=== PATIENT | female | born 1940 | race Caucasian/White ===

== ENCOUNTER 2019-04-12 20:08 | Inpatient (IN) | payer MEDICARE, BC ==
[~2019-04-12] VITALS: Ht 137.2 cm; Wt 38.1 kg
[2019-04-12] MEDS: ALBUTEROL FS 2.5 MG/3 ML VIAL.NEB NEB SCH (19:30)
[2019-04-12] MEDS: IPRATROPIUM NEB FS 0.5 MG/2.5 ML AMPUL.NEB NEB SCH (19:30)
[~2019-04-12 20:08] MED LIST: ASCO500T87 PO; ASPI-992 PO; ATOR20TA PO; BENA5TAB5 PO; BISACODYL SUPP (10 MG) 10 MG/SUPP.RECT SUPP.RECT RC PRN; CARB1TAB12 GT; CLOP75TA15 PO; ERGO400C PO; ISRA2.5C PO; LACTULOSE 10 G/15 ML UDC (PYXIS) GT PRN; MAG HYDROX/AL HYDROX/SIMETH 30 ML UDC GT PRN; MAGNESIUM HYDROXIDE 30 ML UDC GT PRN; METO50TA7 PO; MIDODRINE HCL (5MG) 5 MG TABLET GT PRN; MULT1CAP34 PO; OMEP-293 PO; POLYVINYL ALCOHOL 15 ML BOTTLE EACHEYE PRN; PRAM1.5T3 PO; RASA1TAB PO; VITA600C3 PO
--- NOTE | 2019-04-12 20:12 | NUR ---
TRACH PT WAS BROUGHT INTO SUBACUTE AT THIS TIME. PLACED PATIENT ON COOL AEROSOL 5L AT 28%. PT IS NONVERBAL. TRACH CARE DONE AT THIS TIME. SX SMALL AMOUNT OF WHITE YELLOW THICK SECRETIONS. BILATERAL RHONCHI BREATH SOUNDS HEARD. PT HAS AN UNCUFFED PORTEX 7. AMBU BAG AND SPARE TRACH AT BEDSIDE. WILL CONT TO MONITOR PT. Addendum: 04/13/19 at 0220 by PARI PANDEY RT Amended: Links added.
[2019-04-12] MEDS ORDERED: HYDROGEN PEROXIDE 480 ML BOTTLE TP PRN (20:30)
[2019-04-12] MEDS: VITAL AF 1.2 1,000 ML BOTTLE GT PRN (20:30)
[2019-04-12 21:00] VITALS: BP 106/61
[2019-04-12] MEDS: HYDROGEN PEROXIDE 480 ML BOTTLE TP SCH (21:00)
--- NOTE | 2019-04-12 21:00 | NUR ---
2000- patient 78 years old female admitted from [facility] under the care of Dr. Huang Ramey.Pt awake,open eyes,no acute distress.Tracheostomy located in the midline on cool aerosol 28% Fio2.BP 110/66 HR 62,O@ sats 97%,temp 97.9.GT patent and intact. Dx Respiratory failure,pulmonary fibrosis, hypothyroidism,right middle cerebral stroke,hypertension,parkinson's disease,CAD,Anemia,osteoporosis,PUD.Notified Dr. Gay Deshpande investigations chief for Dr. Ramey to verify orders. at bedside ant oriented to the unit. PM care provided to pt and skin assessment done.HOB elevated.Kept clean and dry. Call light within reach at all times. Will continue to monitor.
[2019-04-12] MEDS: PRAMIPEXOLE DI-HCL 0.25 MG TABLET GT SCH (21:56)
[2019-04-12] MEDS: ENTACAPONE 200 MG TABLET GT SCH (22:26)
[2019-04-12] MEDS: CARBIDOPA/LEVODOPA 25/100 MG 1 UDTAB GT SCH (22:26)
[2019-04-13] VITALS: BP 136/59
[2019-04-13] MEDS: ALBUTEROL FS 2.5 MG/3 ML VIAL.NEB NEB SCH ×4 (01:55→19:30)
[2019-04-13] MEDS: IPRATROPIUM NEB FS 0.5 MG/2.5 ML AMPUL.NEB NEB SCH ×4 (01:55→19:30)
[2019-04-13] MEDS: CARBIDOPA/LEVODOPA 25/100 MG 1 UDTAB GT SCH ×8 (02:30→21:02)
[2019-04-13] MEDS: ENTACAPONE 200 MG TABLET GT SCH ×8 (02:30→21:02)
[2019-04-13 04:08] VITALS: BP 119/53
[2019-04-13] MEDS ORDERED: PANTOPRAZOLE 40 MG/PACK PACK GT SCH (06:00)
[2019-04-13] MEDS: LEVOTHYROXINE SODIUM 75 MCG TABLET GT SCH (06:07)
[2019-04-13 08:09] VITALS: BP 126/52
[2019-04-13] MEDS: CHLORHEXIDINE GLUCONATE 15 ML UDC MM SCH ×2 (09:00→17:00)
[2019-04-13] MEDS: AMANTADINE SUSP 50 MG/5 ML UDC GT SCH (09:00)
[2019-04-13] MEDS: MULTIVITAMINS,THERAGRAN 1 UDTAB TABLET GT SCH (09:00)
[2019-04-13] MEDS: PRAMIPEXOLE DI-HCL 0.25 MG TABLET GT SCH ×2 (09:00→17:00)
[2019-04-13] MEDS: BENZTROPINE MESYLATE (1 MG) 1 MG TABLET GT SCH (09:00)
[2019-04-13] MEDS: FUROSEMIDE 20 MG TABLET GT SCH (09:00)
[2019-04-13] MEDS: ACIDOPHILUS/BULGARICUS 1 EACH TAB.CHEW GT SCH ×2 (09:00→16:28)
[2019-04-13] MEDS: HYDROGEN PEROXIDE 480 ML BOTTLE TP SCH ×2 (09:00→20:31)
[2019-04-13] MEDS: CLOPIDOGREL BISULFATE 75 MG TABLET GT SCH (09:00)
[2019-04-13] MEDS ORDERED: TUBERCULIN,PURIF.PROT.DERIV. 5 TU/0.1 ML VIAL ID SCH (09:00)
[2019-04-13] MEDS: AMIODARONE HCL 200 MG TABLET GT SCH (09:00)
[2019-04-13] MEDS: VITAMINS A AND D 56.7 GM TUBE TP SCH ×3 (09:00→21:01)
[2019-04-13] MEDS: LACTULOSE 10 G/15 ML UDC (PYXIS) GT SCH (09:00)
[2019-04-13] MEDS: Z GUARD REMEDY 4 OZ OINT TP SCH ×3 (09:00→21:01)
[2019-04-13] MEDS: DOCUSATE SODIUM LIQ 100 MG/10 ML UDC GT SCH (09:00)
[2019-04-13] MEDS: ATORVASTATIN 40 MG TABLET GT SCH (09:00)
[2019-04-13] MEDS ORDERED: BISA10SU11 RC (09:45)
[2019-04-13] MEDS ORDERED: CARB-93 GT (09:45)
[2019-04-13] MEDS ORDERED: MIDO2.5T PO (09:45)
[2019-04-13] MEDS ORDERED: CARB-93 PO (09:45)
[2019-04-13] MEDS ORDERED: LACT10SO GT ×2 (09:45)
[2019-04-13] MEDS ORDERED: POLY50DR OP (09:45)
[2019-04-13] MEDS ORDERED: IPRA3AMP23 IH (09:45)
[2019-04-13] MEDS ORDERED: ENTA200T GT (09:45)
[2019-04-13] MEDS ORDERED: BENZ2AMP3 GT (09:45)
[2019-04-13] MEDS ORDERED: DOCU-141 GT (09:45)
[2019-04-13] MEDS ORDERED: AMIO200T4 GT (09:45)
[2019-04-13] MEDS ORDERED: SENN-168 PO (09:45)
[2019-04-13] MEDS ORDERED: LEVO25TA7 GT (09:45)
[2019-04-13] MEDS ORDERED: CHLO473M3 MM (09:45)
[2019-04-13] MEDS ORDERED: ENTA200T PO (09:45)
[2019-04-13] MEDS ORDERED: AMAN100C16 GT (09:45)
[2019-04-13] MEDS ORDERED: FURO-145 GT (09:45)
[2019-04-13] MEDS ORDERED: SACC250C GT (09:45)
[2019-04-13] MEDS ORDERED: CALC355O18 GT (09:45)
--- NOTE | 2019-04-13 13:00 | NUR ---
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 AMBER MATTRESS PLACED, MRSA SWAB DONE AND SENT.
[2019-04-13 13:17] VITALS: BP 153/69
--- NOTE | 2019-04-13 16:21 | NUR ---
PER DAMIAN ALVAREZ PATIENT'S MARTA DECLINED TO SIGN BOTH THE DOCUMENTATION OF INTENSITY OF CARE FORM AND STATEMENT OF REHABILITATION POTENTIAL FORM. PATIENT'S WOULD LIKE TO SPEAK TO DR. TRUONG REGARDING THE PATIENT BEFORE SIGNING BOTH FORMS.
[2019-04-13] MEDS: SENNOSIDES 8.6 MG TABLET GT SCH (16:29)
--- NOTE | 2019-04-13 16:37 | NUR ---
Intake Paperwork: Patient Admitted to [facility] on 04/12/19 at 2012. Cream Hauler met with the resident's , Darryl Lopez [phone] on 04/13/19 at 1106 to complete initial admission paperwork (Patient Right's Acknowledgement, Documentation of Preferred Intensity of Care, Conditions of Admission, [facility] Agreement, and Voluntary Prior Express Consent form). SW provided patient with a copy of the Bill of Rights, patient information guide and [facility] resident and family guidelines. Darryl declined to make a decision about Preferred Intensity of Care and wishes that he have the option to decide on case by case basis. SW informed Darryl that if he is not readily available to decide, by default [facility] will treat patient as Full Code (Maximum Treatment with CPR). Darryl expressed understanding and was agreeable to plan. Per Darryl he will wait to sign the Documentation of Preferred Intensity of Care until attending Physician, Dr. Huang Ramey discusses the pt.s Diagnosis, Prognosis and rehabilitation potential with Darryl. SW informed Charge Nurse to notify Dr. Huang Ramey. SW also completed the initial psychosocial assessment with Darryl as patient is non-communicative. Admission paperwork was placed into the resident's chart. Cream Hauler educated Darryl on [facility] Directive and Conservatorship and provided informational packets. Darryl expressed understanding stated he will proceed with either option if he finds it necessary.
[2019-04-13] MEDS: VITAL AF 1.2 1,000 ML BOTTLE GT PRN (18:04)
[2019-04-13 18:37] VITALS: BP 124/57
[2019-04-13 20:35] VITALS: BP 119/67
[2019-04-13] MEDS: ZINC OXIDE 30 GM TUBE TP SCH (21:01)
--- NOTE | 2019-04-13 22:42 | NUR ---
PT RECEIVE STABLE ON C/A @ 28% FIO2 VIA T-BAR, TRACH PATENT AND SECURED, LUIS F JOHANSEN AND ARINA CASTILLO IS AT BEDSIDE, WILL CONTINUE TO MONITOR, Addendum: 04/13/19 at 2242 by KAREY DIAS RT Amended: Links added.
[2019-04-14] MEDS: CARBIDOPA/LEVODOPA 25/100 MG 1 UDTAB GT SCH ×8 (01:42→21:32)
[2019-04-14] MEDS: ENTACAPONE 200 MG TABLET GT SCH ×8 (01:44→21:32)
[2019-04-14] MEDS: ALBUTEROL FS 2.5 MG/3 ML VIAL.NEB NEB SCH ×4 (01:53→20:28)
[2019-04-14] MEDS: IPRATROPIUM NEB FS 0.5 MG/2.5 ML AMPUL.NEB NEB SCH ×4 (01:53→20:28)
[2019-04-14] MEDS: PANTOPRAZOLE 40 MG/PACK PACK GT SCH (05:30)
[2019-04-14] MEDS: LEVOTHYROXINE SODIUM 75 MCG TABLET GT SCH (05:30)
[2019-04-14 07:49] VITALS: BP 150/72
[2019-04-14] MEDS: Z GUARD REMEDY 4 OZ OINT TP SCH ×4 (09:00→21:32)
[2019-04-14] MEDS: VITAMINS A AND D 56.7 GM TUBE TP SCH ×3 (09:00→21:32)
[2019-04-14] MEDS: ZINC OXIDE 30 GM TUBE TP SCH ×2 (09:00→21:32)
[2019-04-14] MEDS: HYDROGEN PEROXIDE 480 ML BOTTLE TP SCH ×2 (09:05→20:29)
[2019-04-14] MEDS: LACTULOSE 10 G/15 ML UDC (PYXIS) GT SCH (09:07)
[2019-04-14] MEDS: DOCUSATE SODIUM LIQ 100 MG/10 ML UDC GT SCH (09:09)
[2019-04-14] MEDS: AMIODARONE HCL 200 MG TABLET GT SCH (09:09)
[2019-04-14] MEDS: BENZTROPINE MESYLATE (1 MG) 1 MG TABLET GT SCH (09:09)
[2019-04-14] MEDS: ACIDOPHILUS/BULGARICUS 1 EACH TAB.CHEW GT SCH ×2 (09:10→16:36)
[2019-04-14] MEDS: FUROSEMIDE 20 MG TABLET GT SCH (09:11)
[2019-04-14] MEDS: CHLORHEXIDINE GLUCONATE 15 ML UDC MM SCH ×2 (09:11→16:36)
[2019-04-14] MEDS: PRAMIPEXOLE DI-HCL 0.25 MG TABLET GT SCH ×2 (09:11→16:36)
[2019-04-14] MEDS: AMANTADINE SUSP 50 MG/5 ML UDC GT SCH (09:11)
[2019-04-14] MEDS: ATORVASTATIN 40 MG TABLET GT SCH (09:11)
[2019-04-14] MEDS: CLOPIDOGREL BISULFATE 75 MG TABLET GT SCH (09:11)
[2019-04-14] MEDS: MULTIVITAMINS,THERAGRAN 1 UDTAB TABLET GT SCH (09:11)
[2019-04-14] MEDS: SENNOSIDES 8.6 MG TABLET GT SCH ×2 (09:11→16:36)
[2019-04-14] MEDS: VITAL AF 1.2 1,000 ML BOTTLE GT PRN ×2 (12:44→23:44)
--- NOTE | 2019-04-14 12:53 | NUR ---
Chest x ray was relayed to Dr. Suggs no new orders.
[2019-04-14 21:05] VITALS: BP 115/50
[2019-04-15] MEDS: ALBUTEROL FS 2.5 MG/3 ML VIAL.NEB NEB SCH ×4 (00:52→19:58)
[2019-04-15] MEDS: IPRATROPIUM NEB FS 0.5 MG/2.5 ML AMPUL.NEB NEB SCH ×4 (00:52→19:58)
[2019-04-15] MEDS: ENTACAPONE 200 MG TABLET GT SCH ×8 (02:30→20:45)
[2019-04-15] MEDS: CARBIDOPA/LEVODOPA 25/100 MG 1 UDTAB GT SCH ×8 (02:30→20:45)
[2019-04-15] MEDS: PANTOPRAZOLE 40 MG/PACK PACK GT SCH (05:28)
[2019-04-15] MEDS: LEVOTHYROXINE SODIUM 75 MCG TABLET GT SCH (05:28)
[2019-04-15 07:58] VITALS: BP 128/77
[2019-04-15] MEDS: LACTULOSE 10 G/15 ML UDC (PYXIS) GT SCH (08:28)
[2019-04-15] MEDS: BENZTROPINE MESYLATE (1 MG) 1 MG TABLET GT SCH (08:28)
[2019-04-15] MEDS: DOCUSATE SODIUM LIQ 100 MG/10 ML UDC GT SCH (08:29)
[2019-04-15] MEDS: AMIODARONE HCL 200 MG TABLET GT SCH (08:30)
[2019-04-15] MEDS: ACIDOPHILUS/BULGARICUS 1 EACH TAB.CHEW GT SCH ×2 (08:30→16:17)
[2019-04-15] MEDS: FUROSEMIDE 20 MG TABLET GT SCH (08:31)
[2019-04-15] MEDS: ATORVASTATIN 40 MG TABLET GT SCH (08:31)
[2019-04-15] MEDS: PRAMIPEXOLE DI-HCL 0.25 MG TABLET GT SCH ×2 (08:31→16:17)
[2019-04-15] MEDS: SENNOSIDES 8.6 MG TABLET GT SCH ×2 (08:32→16:17)
[2019-04-15] MEDS: CLOPIDOGREL BISULFATE 75 MG TABLET GT SCH (08:32)
[2019-04-15] MEDS: CHLORHEXIDINE GLUCONATE 15 ML UDC MM SCH ×2 (08:34→16:17)
[2019-04-15] MEDS: MULTIVITAMINS,THERAGRAN 1 UDTAB TABLET GT SCH (08:34)
[2019-04-15] MEDS: AMANTADINE SUSP 50 MG/5 ML UDC GT SCH (08:34)
[2019-04-15] MEDS: VITAMINS A AND D 56.7 GM TUBE TP SCH ×3 (09:00→20:45)
[2019-04-15] MEDS: ZINC OXIDE 30 GM TUBE TP SCH ×2 (09:00→20:45)
[2019-04-15] MEDS: Z GUARD REMEDY 4 OZ OINT TP SCH ×4 (09:00→20:45)
[2019-04-15] MEDS: HYDROGEN PEROXIDE 480 ML BOTTLE TP SCH ×2 (09:25→20:45)
[2019-04-15 20:49] VITALS: BP 95/69
[2019-04-16] MEDS: IPRATROPIUM NEB FS 0.5 MG/2.5 ML AMPUL.NEB NEB SCH ×4 (01:35→19:42)
[2019-04-16] MEDS: ALBUTEROL FS 2.5 MG/3 ML VIAL.NEB NEB SCH ×4 (01:35→19:42)
[2019-04-16] MEDS: ENTACAPONE 200 MG TABLET GT SCH ×8 (02:30→21:40)
[2019-04-16] MEDS: CARBIDOPA/LEVODOPA 25/100 MG 1 UDTAB GT SCH ×8 (02:30→21:41)
[2019-04-16] MEDS: LEVOTHYROXINE SODIUM 75 MCG TABLET GT SCH (05:21)
[2019-04-16] MEDS: PANTOPRAZOLE 40 MG/PACK PACK GT SCH (05:21)
[2019-04-16] MEDS: VITAL AF 1.2 1,000 ML BOTTLE GT PRN (05:41)
[2019-04-16 07:54] VITALS: BP 110/71
[2019-04-16] MEDS: HYDROGEN PEROXIDE 480 ML BOTTLE TP SCH ×2 (08:24→21:30)
--- NOTE | 2019-04-16 08:25 | NUR ---
WOUND CARE CONSULT: PT SEEN FOR SKIN ASSESSMENT AND NOTED TO BE VERY THIN AND BONY WITH MULTIPLE SCARS INCLUDING ARMS, LEGS, MIDBACK AND SACRUM, PRESENT ON ADMISSION. AREAS OF BLANCHABLE REDNESS NOTED WELL. SKIN IS INTACT AT G TUBE SITE WITH VERY SLIGHT PINK/REDNESS. CONCUR WITH CURRENT SKIN PROTECTION ORDERS IN PLACE. DISCUSSED WITH NURSING STAFF. PT ON FIRST STEP CIRRUS LOW AIRLOSS MATTRESS. PT HAS TRACH. PT TENDS TO PULL IN ALL EXTREMITIES TO CENTER OF HER BODY. PT IS INCONTINENT. WILL SEE PRN. IN AGREEMENT WITH PLAN OF CARE. DIETARY CONSULT IN PLACE.
[2019-04-16] MEDS: LACTULOSE 10 G/15 ML UDC (PYXIS) GT SCH (08:34)
[2019-04-16] MEDS: BENZTROPINE MESYLATE (1 MG) 1 MG TABLET GT SCH (08:35)
[2019-04-16] MEDS: DOCUSATE SODIUM LIQ 100 MG/10 ML UDC GT SCH (08:35)
[2019-04-16] MEDS: AMIODARONE HCL 200 MG TABLET GT SCH (08:36)
[2019-04-16] MEDS: FUROSEMIDE 20 MG TABLET GT SCH (08:37)
[2019-04-16] MEDS: PRAMIPEXOLE DI-HCL 0.25 MG TABLET GT SCH ×2 (08:37→16:32)
[2019-04-16] MEDS: CLOPIDOGREL BISULFATE 75 MG TABLET GT SCH (08:37)
[2019-04-16] MEDS: ACIDOPHILUS/BULGARICUS 1 EACH TAB.CHEW GT SCH ×2 (08:37→16:32)
[2019-04-16] MEDS: ATORVASTATIN 40 MG TABLET GT SCH (08:37)
[2019-04-16] MEDS: SENNOSIDES 8.6 MG TABLET GT SCH ×2 (08:38→16:32)
[2019-04-16] MEDS: MULTIVITAMINS,THERAGRAN 1 UDTAB TABLET GT SCH (08:38)
[2019-04-16] MEDS: CHLORHEXIDINE GLUCONATE 15 ML UDC MM SCH ×2 (08:39→16:32)
[2019-04-16] MEDS: VITAMINS A AND D 56.7 GM TUBE TP SCH ×3 (08:39→21:30)
[2019-04-16] MEDS: ZINC OXIDE 30 GM TUBE TP SCH ×2 (08:39→21:30)
[2019-04-16] MEDS: Z GUARD REMEDY 4 OZ OINT TP SCH ×4 (08:39→21:30)
[2019-04-16] MEDS: AMANTADINE SUSP 50 MG/5 ML UDC GT SCH (09:00)
--- NOTE | 2019-04-16 14:34 | NUR ---
DAMIAN informed the pt.'s Darryl that new intake paperwork will be need to be completed at of 04/19/18 as patients will have new accounts. Darryl expressed understanding and stated he wouod be readily available as he visits the pt. daily. DAMIAN will follow up.
[2019-04-16 20:38] VITALS: BP 98/62
--- NOTE | 2019-04-16 21:40 | NUR ---
PT RECEIVE STABLE ON 28% CA VIA T-BAR, TRACH PATENT AND SECURED, LUIS F JOHANSEN AND ARINA CASTILLO IS AT BEDSIDE, WILL CONTINUE TO MONITOR Addendum: 04/16/19 at 2141 by KAREY DIAS RT Amended: Links added.
[2019-04-17] MEDS: ALBUTEROL FS 2.5 MG/3 ML VIAL.NEB NEB SCH ×4 (01:48→19:56)
[2019-04-17] MEDS: IPRATROPIUM NEB FS 0.5 MG/2.5 ML AMPUL.NEB NEB SCH ×4 (01:48→19:56)
[2019-04-17] MEDS: CARBIDOPA/LEVODOPA 25/100 MG 1 UDTAB GT SCH ×8 (02:54→20:35)
[2019-04-17] MEDS: ENTACAPONE 200 MG TABLET GT SCH ×8 (02:54→20:35)
[2019-04-17] MEDS: LEVOTHYROXINE SODIUM 75 MCG TABLET GT SCH (06:01)
[2019-04-17] MEDS: PANTOPRAZOLE 40 MG/PACK PACK GT SCH (06:01)
[2019-04-17] MEDS: VITAL AF 1.2 1,000 ML BOTTLE GT PRN (07:02)
[2019-04-17 07:38] VITALS: BP 94/52
--- NOTE | 2019-04-17 08:53 | NUR ---
SW completed the Relay Man portion of Admission M[facility]. The residents responsible green party I her , Darryl Lopez [phone] The pt. is non-vent, with trache and TF: Vital AF at 40ml/hour x 20hours provides total 800ml,960calories, 60g protein, 649ml free water from tube feeding (provides 25cal/kg and 1.6g protein per actual body weight). The pt. will be scheduled to have annual dental and podiatry exam. The pt. was seen by the sewer digger, on 04/13/19.
[2019-04-17] MEDS: AMIODARONE HCL 200 MG TABLET GT SCH (09:00)
[2019-04-17] MEDS: HYDROGEN PEROXIDE 480 ML BOTTLE TP SCH ×2 (09:00→21:07)
[2019-04-17] MEDS: LACTULOSE 10 G/15 ML UDC (PYXIS) GT SCH (09:13)
[2019-04-17] MEDS: DOCUSATE SODIUM LIQ 100 MG/10 ML UDC GT SCH (09:13)
[2019-04-17] MEDS: BENZTROPINE MESYLATE (1 MG) 1 MG TABLET GT SCH (09:13)
[2019-04-17] MEDS: CHLORHEXIDINE GLUCONATE 15 ML UDC MM SCH ×2 (09:14→17:02)
[2019-04-17] MEDS: CLOPIDOGREL BISULFATE 75 MG TABLET GT SCH (09:14)
[2019-04-17] MEDS: SENNOSIDES 8.6 MG TABLET GT SCH ×2 (09:14→17:02)
[2019-04-17] MEDS: ACIDOPHILUS/BULGARICUS 1 EACH TAB.CHEW GT SCH ×2 (09:14→17:02)
[2019-04-17] MEDS: FUROSEMIDE 20 MG TABLET GT SCH (09:14)
[2019-04-17] MEDS: MULTIVITAMINS,THERAGRAN 1 UDTAB TABLET GT SCH (09:14)
[2019-04-17] MEDS: ATORVASTATIN 40 MG TABLET GT SCH (09:14)
[2019-04-17] MEDS: PRAMIPEXOLE DI-HCL 0.25 MG TABLET GT SCH ×2 (09:14→17:02)
[2019-04-17] MEDS: AMANTADINE SUSP 50 MG/5 ML UDC GT SCH (09:14)
[2019-04-17] MEDS: VITAMINS A AND D 56.7 GM TUBE TP SCH ×3 (09:15→20:35)
[2019-04-17] MEDS: ZINC OXIDE 30 GM TUBE TP SCH ×2 (09:15→20:35)
[2019-04-17] MEDS: Z GUARD REMEDY 4 OZ OINT TP SCH ×4 (09:15→20:35)
[2019-04-17 20:11] VITALS: BP 118/55
[2019-04-18] MEDS: ALBUTEROL FS 2.5 MG/3 ML VIAL.NEB NEB SCH ×4 (01:35→19:56)
[2019-04-18] MEDS: IPRATROPIUM NEB FS 0.5 MG/2.5 ML AMPUL.NEB NEB SCH ×4 (01:35→19:56)
[2019-04-18] MEDS: ENTACAPONE 200 MG TABLET GT SCH ×8 (02:30→21:37)
[2019-04-18] MEDS: CARBIDOPA/LEVODOPA 25/100 MG 1 UDTAB GT SCH ×8 (02:30→21:37)
[2019-04-18] MEDS: LEVOTHYROXINE SODIUM 75 MCG TABLET GT SCH (05:12)
[2019-04-18] MEDS: PANTOPRAZOLE 40 MG/PACK PACK GT SCH (05:12)
[2019-04-18] MEDS: VITAL AF 1.2 1,000 ML BOTTLE GT PRN ×2 (06:25→21:37)
[2019-04-18 07:47] VITALS: BP 109/63
[2019-04-18] MEDS: ACIDOPHILUS/BULGARICUS 1 EACH TAB.CHEW GT SCH ×2 (09:00→17:53)
[2019-04-18] MEDS: DOCUSATE SODIUM LIQ 100 MG/10 ML UDC GT SCH (09:00)
[2019-04-18] MEDS: Z GUARD REMEDY 4 OZ OINT TP SCH ×4 (09:00→21:36)
[2019-04-18] MEDS: LACTULOSE 10 G/15 ML UDC (PYXIS) GT SCH (09:00)
[2019-04-18] MEDS: ATORVASTATIN 40 MG TABLET GT SCH (09:00)
[2019-04-18] MEDS: BENZTROPINE MESYLATE (1 MG) 1 MG TABLET GT SCH (09:00)
[2019-04-18] MEDS: CLOPIDOGREL BISULFATE 75 MG TABLET GT SCH (09:00)
[2019-04-18] MEDS: HYDROGEN PEROXIDE 480 ML BOTTLE TP SCH ×2 (09:00→20:07)
[2019-04-18] MEDS: FUROSEMIDE 20 MG TABLET GT SCH (09:00)
[2019-04-18] MEDS: MULTIVITAMINS,THERAGRAN 1 UDTAB TABLET GT SCH (09:00)
[2019-04-18] MEDS: SENNOSIDES 8.6 MG TABLET GT SCH ×2 (09:00→17:53)
[2019-04-18] MEDS: AMANTADINE SUSP 50 MG/5 ML UDC GT SCH (09:00)
[2019-04-18] MEDS: PRAMIPEXOLE DI-HCL 0.25 MG TABLET GT SCH ×2 (09:00→17:53)
[2019-04-18] MEDS: ZINC OXIDE 30 GM TUBE TP SCH ×2 (09:00→21:36)
[2019-04-18] MEDS: AMIODARONE HCL 200 MG TABLET GT SCH (09:00)
[2019-04-18] MEDS: CHLORHEXIDINE GLUCONATE 15 ML UDC MM SCH ×2 (09:00→17:54)
[2019-04-18] MEDS: VITAMINS A AND D 56.7 GM TUBE TP SCH ×3 (09:00→21:36)
[2019-04-18 19:59] VITALS: BP 101/64
--- NOTE | 2019-04-18 20:45 | NUR ---
RT NOTE PT RECEIVED TRACHED ON COOL AEROSOL @ 28%. AMBU BAG/BACK UP TRACH @ BEDSIDE. TX GIVEN, NO ADVERSE REACTIONS NOTED. SX DONE, TRACH SECURED AND PATENT. WATER LEVEL GOOD. NO SOB NOTED. WILL MONITOR T/O SHIFT. CONT. PULSE OX CONNECTED. Addendum: 04/18/19 at 2045 by SLIM CONLEY RT Amended: Links added.
[2019-04-19] MEDS: CARBIDOPA/LEVODOPA 25/100 MG 1 UDTAB GT SCH ×2 (01:52→05:52)
[2019-04-19] MEDS: ENTACAPONE 200 MG TABLET GT SCH ×2 (01:52→05:52)
[2019-04-19] MEDS: ALBUTEROL FS 2.5 MG/3 ML VIAL.NEB NEB SCH ×2 (02:28→07:46)
[2019-04-19] MEDS: IPRATROPIUM NEB FS 0.5 MG/2.5 ML AMPUL.NEB NEB SCH ×2 (02:28→07:46)
[2019-04-19] MEDS: PANTOPRAZOLE 40 MG/PACK PACK GT SCH (05:52)
[2019-04-19] MEDS: LEVOTHYROXINE SODIUM 75 MCG TABLET GT SCH (05:52)
[2019-04-19 07:38] VITALS: BP 114/56
== END 2019-04-17 23:59 | disposition still patient (30) | DRG 189 ==
LOC: SA 20:08
PROVIDERS: ADMIT Internal Medicine Nephrology; ATTEND Internal Medicine Nephrology
DX: J96.21 Acute and chronic respiratory failure with hypoxia (principal); R40.3 Persistent vegetative state; I25.10 Atherosclerotic heart disease of native coronary artery without angina pectoris; I10 Essential (primary) hypertension; G20 Parkinson's disease; B35.1 Tinea unguium; D64.9 Anemia, unspecified; E03.9 Hypothyroidism, unspecified; E78.5 Hyperlipidemia, unspecified; I27.20 Pulmonary hypertension, unspecified; I48.91 Unspecified atrial fibrillation; J84.10 Pulmonary fibrosis, unspecified; I73.9 Peripheral vascular disease, unspecified; M20.41 Other hammer toe(s) (acquired), right foot; M20.42 Other hammer toe(s) (acquired), left foot; R13.10 Dysphagia, unspecified; Z74.01 Bed confinement status; I69.398 Other sequelae of cerebral infarction; Z93.0 Tracheostomy status; Z93.1 Gastrostomy status; Z95.1 Presence of aortocoronary bypass graft; Z87.11 Personal history of peptic ulcer disease; Z87.440 Personal history of urinary (tract) infections; I65.21 Occlusion and stenosis of right carotid artery
CPT/HCPCS: 31720; 71045-TC; 86580-TC; 87081-TC; 94640-TC; 94760-TC; 94762-TC; 97110-TC; 97112-TC; 97530-TC; A4623; A7526

== ENCOUNTER 2019-04-18 | Inpatient (IN) | payer MEDICARE, BC ==
[~2019-04-18] VITALS: Ht 137.2 cm; Wt 38.1 kg
[~2019-04-18] MED LIST changes: +AMAN100C16 GT; +AMIO200T4 GT; -ASCO500T87 PO; -ASPI-992 PO; -BENA5TAB5 PO; +BENZ2AMP3 GT; +BISA10SU11 RC; -BISACODYL SUPP (10 MG) 10 MG/SUPP.RECT SUPP.RECT RC PRN; +CALC355O18 GT; +CARB-93 GT; +CARB-93 PO; -CARB1TAB12 GT; +CHLO473M3 MM; +DOCU-141 GT; +ENTA200T GT; +ENTA200T PO; -ERGO400C PO; +FURO-145 GT; +IPRA3AMP23 IH; -ISRA2.5C PO; +LACT10SO GT; -LACTULOSE 10 G/15 ML UDC (PYXIS) GT PRN; +LEVO25TA7 GT; -MAG HYDROX/AL HYDROX/SIMETH 30 ML UDC GT PRN; -MAGNESIUM HYDROXIDE 30 ML UDC GT PRN; -METO50TA7 PO; +MIDO2.5T PO; -MIDODRINE HCL (5MG) 5 MG TABLET GT PRN; -OMEP-293 PO; +POLY50DR OP; -POLYVINYL ALCOHOL 15 ML BOTTLE EACHEYE PRN; -RASA1TAB PO; +SACC250C GT; +SENN-168 PO; -VITA600C3 PO
[2019-04-19] MEDS ORDERED: LACTULOSE 10 G/15 ML UDC (PYXIS) GT PRN (11:30)
[2019-04-19] MEDS ORDERED: HYDROGEN PEROXIDE 480 ML BOTTLE TP PRN (11:30)
[2019-04-19] MEDS ORDERED: MAG HYDROX/AL HYDROX/SIMETH 30 ML UDC GT PRN (11:30)
[2019-04-19] MEDS ORDERED: POLYVINYL ALCOHOL 15 ML BOTTLE EACHEYE PRN (11:30)
[2019-04-19] MEDS ORDERED: MIDODRINE HCL (5MG) 5 MG TABLET GT PRN (11:30)
[2019-04-19] MEDS: HYDROGEN PEROXIDE 480 ML BOTTLE TP SCH ×2 (11:36→20:17)
[2019-04-19] MEDS: AMANTADINE SUSP 50 MG/5 ML UDC GT SCH (11:50)
[2019-04-19] MEDS: BENZTROPINE MESYLATE (1 MG) 1 MG TABLET GT SCH (11:51)
[2019-04-19] MEDS: CHLORHEXIDINE GLUCONATE 15 ML UDC MM SCH ×2 (11:52→16:54)
[2019-04-19] MEDS: MULTIVITAMINS,THERAGRAN 1 UDTAB TABLET GT SCH (11:52)
[2019-04-19] MEDS: VITAMINS A AND D 56.7 GM TUBE TP SCH ×2 (11:52→20:14)
[2019-04-19] MEDS: FUROSEMIDE 20 MG TABLET GT SCH (11:52)
[2019-04-19] MEDS: LACTULOSE 10 G/15 ML UDC (PYXIS) GT SCH (11:52)
[2019-04-19] MEDS: CLOPIDOGREL BISULFATE 75 MG TABLET GT SCH (11:52)
[2019-04-19] MEDS: DOCUSATE SODIUM LIQ 100 MG/10 ML UDC GT SCH (11:52)
[2019-04-19] MEDS: ATORVASTATIN 40 MG TABLET GT SCH (11:52)
[2019-04-19] MEDS: Z GUARD REMEDY 4 OZ OINT TP SCH ×4 (11:52→20:13)
[2019-04-19] MEDS: ZINC OXIDE 30 GM TUBE TP SCH ×2 (11:52→20:14)
[2019-04-19] MEDS: AMIODARONE HCL 200 MG TABLET GT SCH (11:52)
[2019-04-19] MEDS: PRAMIPEXOLE DI-HCL 0.25 MG TABLET GT SCH ×2 (11:52→16:53)
[2019-04-19] MEDS: SENNOSIDES 8.6 MG TABLET GT SCH ×2 (11:52→16:54)
[2019-04-19] MEDS: ENTACAPONE 200 MG TABLET GT SCH ×5 (11:54→21:09)
[2019-04-19] MEDS: CARBIDOPA/LEVODOPA 25/100 MG 1 UDTAB GT SCH ×5 (11:54→21:09)
[2019-04-19] MEDS: LEVOTHYROXINE SODIUM 75 MCG TABLET GT SCH (11:58)
[2019-04-19] MEDS: PANTOPRAZOLE 40 MG/PACK PACK GT SCH (11:58)
[2019-04-19] MEDS: IPRATROPIUM NEB FS 0.5 MG/2.5 ML AMPUL.NEB NEB SCH ×2 (13:42→20:17)
[2019-04-19] MEDS: ALBUTEROL FS 2.5 MG/3 ML VIAL.NEB NEB SCH ×2 (13:43→20:17)
[2019-04-19] MEDS: ACIDOPHILUS/BULGARICUS 1 EACH TAB.CHEW GT SCH (16:53)
[2019-04-19] MEDS: VITAL AF 1.2 1,000 ML BOTTLE GT PRN (16:55)
[2019-04-19 20:05] VITALS: BP 124/65
[2019-04-20] MEDS: IPRATROPIUM NEB FS 0.5 MG/2.5 ML AMPUL.NEB NEB SCH ×4 (01:41→19:57)
[2019-04-20] MEDS: ALBUTEROL FS 2.5 MG/3 ML VIAL.NEB NEB SCH ×4 (01:41→19:57)
[2019-04-20] MEDS: CARBIDOPA/LEVODOPA 25/100 MG 1 UDTAB GT SCH ×8 (02:11→21:02)
[2019-04-20] MEDS: ENTACAPONE 200 MG TABLET GT SCH ×8 (02:11→21:02)
[2019-04-20] MEDS: PANTOPRAZOLE 40 MG/PACK PACK GT SCH (05:36)
[2019-04-20] MEDS: LEVOTHYROXINE SODIUM 75 MCG TABLET GT SCH (05:36)
[2019-04-20 07:39] VITALS: BP 101/65
[2019-04-20] MEDS: HYDROGEN PEROXIDE 480 ML BOTTLE TP SCH ×2 (08:13→21:11)
[2019-04-20] MEDS: AMIODARONE HCL 200 MG TABLET GT SCH (09:00)
[2019-04-20] MEDS: PRAMIPEXOLE DI-HCL 0.25 MG TABLET GT SCH ×2 (09:02→16:39)
[2019-04-20] MEDS: ATORVASTATIN 40 MG TABLET GT SCH (09:02)
[2019-04-20] MEDS: BENZTROPINE MESYLATE (1 MG) 1 MG TABLET GT SCH (09:02)
[2019-04-20] MEDS: DOCUSATE SODIUM LIQ 100 MG/10 ML UDC GT SCH (09:02)
[2019-04-20] MEDS: ACIDOPHILUS/BULGARICUS 1 EACH TAB.CHEW GT SCH ×2 (09:02→16:39)
[2019-04-20] MEDS: LACTULOSE 10 G/15 ML UDC (PYXIS) GT SCH (09:02)
[2019-04-20] MEDS: CLOPIDOGREL BISULFATE 75 MG TABLET GT SCH (09:02)
[2019-04-20] MEDS: FUROSEMIDE 20 MG TABLET GT SCH (09:02)
[2019-04-20] MEDS: AMANTADINE SUSP 50 MG/5 ML UDC GT SCH (09:04)
[2019-04-20] MEDS: MULTIVITAMINS,THERAGRAN 1 UDTAB TABLET GT SCH (09:04)
[2019-04-20] MEDS: Z GUARD REMEDY 4 OZ OINT TP SCH ×4 (09:04→20:23)
[2019-04-20] MEDS: VITAMINS A AND D 56.7 GM TUBE TP SCH ×3 (09:04→20:24)
[2019-04-20] MEDS: CHLORHEXIDINE GLUCONATE 15 ML UDC MM SCH ×2 (09:04→16:40)
[2019-04-20] MEDS: SENNOSIDES 8.6 MG TABLET GT SCH ×2 (09:04→16:39)
[2019-04-20] MEDS: ZINC OXIDE 30 GM TUBE TP SCH ×2 (09:04→20:24)
[2019-04-20 15:59] LABS: BASOPHILS # (AUTO) 0.1 /CMM (0.0-0.2); BASOPHILS % (AUTO) 0.7 % (0.0-2.0); EOSINOPHILS % (AUTO) 0.6 % (0.0-6.0); HEMATOCRIT 37 % (33-45); HEMOGLOBIN 11.9 g/dL (11.5-14.8); LYMPHOCYTES # (AUTO) 1.4 /CMM (0.8-4.8); LYMPHOCYTES % (AUTO) 19.3 % (20.0-44.0); MEAN CORPUSCULAR HGB CONC 33 g/dl (31.0-36.0); MEAN CORPUSCULAR VOLUME 92 fL (82-100); MONOCYTES # (AUTO) 0.4 /CMM (0.1-1.30); MONOCYTES % (AUTO) 4.9 % (2.0-12.0); NEUTROPHILS # (AUTO) 5.4 /CMM (1.8-8.9); NEUTROPHILS % (AUTO) 74.5 % (43.0-81.0); PLATELET COUNT (AUTO) 329 /CMM (150-450); WHITE BLOOD COUNT (AUTO) 7.2 K/uL (4.3-11.0)
[2019-04-20 16:07] LABS: CALCIUM, SERUM 9.2 mg/dL (8.5-10.1); CARBON DIOXIDE 30 mmol/L (21-32); CHLORIDE 103 mmol/L (98-107); CREATININE 0.4 mg/dL (0.6-1.3); GLUCOSE 113 mg/dL (74-106); POTASSIUM 3.7 mmol/L (3.5-5.1); SODIUM SERUM 142 mmol/L (136-145); UREA NITROGEN, BLOOD 21 mg/dL (7-18)
[2019-04-20] MEDS: VITAL AF 1.2 1,000 ML BOTTLE GT PRN (16:47)
[2019-04-20 20:26] VITALS: BP 120/56
[2019-04-21] MEDS: ALBUTEROL FS 2.5 MG/3 ML VIAL.NEB NEB SCH ×4 (01:37→20:04)
[2019-04-21] MEDS: IPRATROPIUM NEB FS 0.5 MG/2.5 ML AMPUL.NEB NEB SCH ×4 (01:37→20:04)
[2019-04-21] MEDS: CARBIDOPA/LEVODOPA 25/100 MG 1 UDTAB GT SCH ×8 (02:11→21:04)
[2019-04-21] MEDS: ENTACAPONE 200 MG TABLET GT SCH ×8 (02:11→21:04)
[2019-04-21] MEDS: PANTOPRAZOLE 40 MG/PACK PACK GT SCH (05:44)
[2019-04-21] MEDS: LEVOTHYROXINE SODIUM 75 MCG TABLET GT SCH (05:44)
[2019-04-21 07:53] VITALS: BP 124/72
[2019-04-21] MEDS: CHLORHEXIDINE GLUCONATE 15 ML UDC MM SCH ×2 (09:00→16:29)
[2019-04-21] MEDS: Z GUARD REMEDY 4 OZ OINT TP SCH ×4 (09:00→20:29)
[2019-04-21] MEDS: VITAMINS A AND D 56.7 GM TUBE TP SCH ×3 (09:00→20:29)
[2019-04-21] MEDS: HYDROGEN PEROXIDE 480 ML BOTTLE TP SCH ×2 (09:00→20:04)
[2019-04-21] MEDS: ZINC OXIDE 30 GM TUBE TP SCH ×2 (09:00→20:29)
[2019-04-21] MEDS: LACTULOSE 10 G/15 ML UDC (PYXIS) GT SCH (09:07)
[2019-04-21] MEDS: DOCUSATE SODIUM LIQ 100 MG/10 ML UDC GT SCH (09:07)
[2019-04-21] MEDS: BENZTROPINE MESYLATE (1 MG) 1 MG TABLET GT SCH (09:07)
[2019-04-21] MEDS: ACIDOPHILUS/BULGARICUS 1 EACH TAB.CHEW GT SCH ×2 (09:08→16:29)
[2019-04-21] MEDS: FUROSEMIDE 20 MG TABLET GT SCH (09:08)
[2019-04-21] MEDS: AMIODARONE HCL 200 MG TABLET GT SCH (09:08)
[2019-04-21] MEDS: ATORVASTATIN 40 MG TABLET GT SCH (09:09)
[2019-04-21] MEDS: PRAMIPEXOLE DI-HCL 0.25 MG TABLET GT SCH ×2 (09:09→16:29)
[2019-04-21] MEDS: CLOPIDOGREL BISULFATE 75 MG TABLET GT SCH (09:10)
[2019-04-21] MEDS: SENNOSIDES 8.6 MG TABLET GT SCH ×2 (09:10→16:29)
[2019-04-21] MEDS: AMANTADINE SUSP 50 MG/5 ML UDC GT SCH (09:11)
[2019-04-21] MEDS: MULTIVITAMINS,THERAGRAN 1 UDTAB TABLET GT SCH (09:11)
[2019-04-21] MEDS: VITAL AF 1.2 1,000 ML BOTTLE GT PRN (12:20)
[2019-04-21 20:57] VITALS: BP 149/55
[2019-04-22] MEDS: CARBIDOPA/LEVODOPA 25/100 MG 1 UDTAB GT SCH ×8 (01:44→21:53)
[2019-04-22] MEDS: ENTACAPONE 200 MG TABLET GT SCH ×8 (01:44→21:53)
[2019-04-22] MEDS: ALBUTEROL FS 2.5 MG/3 ML VIAL.NEB NEB SCH ×4 (02:01→20:12)
[2019-04-22] MEDS: IPRATROPIUM NEB FS 0.5 MG/2.5 ML AMPUL.NEB NEB SCH ×4 (02:01→20:12)
[2019-04-22] MEDS: PANTOPRAZOLE 40 MG/PACK PACK GT SCH (05:06)
[2019-04-22] MEDS: LEVOTHYROXINE SODIUM 75 MCG TABLET GT SCH (05:06)
[2019-04-22 07:54] VITALS: BP 142/69
[2019-04-22] MEDS: HYDROGEN PEROXIDE 480 ML BOTTLE TP SCH ×2 (08:33→20:12)
[2019-04-22] MEDS: VITAMINS A AND D 56.7 GM TUBE TP SCH ×3 (09:00→21:53)
[2019-04-22] MEDS: ZINC OXIDE 30 GM TUBE TP SCH ×2 (09:00→21:53)
[2019-04-22] MEDS: DOCUSATE SODIUM LIQ 100 MG/10 ML UDC GT SCH (09:29)
[2019-04-22] MEDS: LACTULOSE 10 G/15 ML UDC (PYXIS) GT SCH (09:29)
[2019-04-22] MEDS: AMIODARONE HCL 200 MG TABLET GT SCH (09:29)
[2019-04-22] MEDS: BENZTROPINE MESYLATE (1 MG) 1 MG TABLET GT SCH (09:29)
[2019-04-22] MEDS: SENNOSIDES 8.6 MG TABLET GT SCH ×2 (09:30→16:46)
[2019-04-22] MEDS: CLOPIDOGREL BISULFATE 75 MG TABLET GT SCH (09:30)
[2019-04-22] MEDS: FUROSEMIDE 20 MG TABLET GT SCH (09:30)
[2019-04-22] MEDS: PRAMIPEXOLE DI-HCL 0.25 MG TABLET GT SCH ×2 (09:30→16:46)
[2019-04-22] MEDS: MULTIVITAMINS,THERAGRAN 1 UDTAB TABLET GT SCH (09:30)
[2019-04-22] MEDS: CHLORHEXIDINE GLUCONATE 15 ML UDC MM SCH ×2 (09:30→16:47)
[2019-04-22] MEDS: ATORVASTATIN 40 MG TABLET GT SCH (09:30)
[2019-04-22] MEDS: Z GUARD REMEDY 4 OZ OINT TP SCH ×4 (09:30→21:53)
[2019-04-22] MEDS: ACIDOPHILUS/BULGARICUS 1 EACH TAB.CHEW GT SCH ×2 (09:30→16:46)
[2019-04-22] MEDS: AMANTADINE SUSP 50 MG/5 ML UDC GT SCH (09:30)
[2019-04-22] MEDS: VITAL AF 1.2 1,000 ML BOTTLE GT PRN (12:40)
[2019-04-22 20:49] VITALS: BP 117/50
[2019-04-23] MEDS: IPRATROPIUM NEB FS 0.5 MG/2.5 ML AMPUL.NEB NEB SCH ×4 (02:17→20:20)
[2019-04-23] MEDS: ALBUTEROL FS 2.5 MG/3 ML VIAL.NEB NEB SCH ×4 (02:17→20:20)
[2019-04-23] MEDS: CARBIDOPA/LEVODOPA 25/100 MG 1 UDTAB GT SCH ×8 (03:29→21:50)
[2019-04-23] MEDS: ENTACAPONE 200 MG TABLET GT SCH ×8 (03:29→21:50)
[2019-04-23] MEDS: PANTOPRAZOLE 40 MG/PACK PACK GT SCH (05:48)
[2019-04-23] MEDS: LEVOTHYROXINE SODIUM 75 MCG TABLET GT SCH (05:48)
[2019-04-23] MEDS: HYDROGEN PEROXIDE 480 ML BOTTLE TP SCH ×2 (08:26→21:45)
[2019-04-23] MEDS: VITAMINS A AND D 56.7 GM TUBE TP SCH ×3 (09:00→21:50)
[2019-04-23] MEDS: FUROSEMIDE 20 MG TABLET GT SCH (09:00)
[2019-04-23] MEDS: SENNOSIDES 8.6 MG TABLET GT SCH ×2 (09:00→16:43)
[2019-04-23] MEDS: BENZTROPINE MESYLATE (1 MG) 1 MG TABLET GT SCH (09:00)
[2019-04-23] MEDS: LACTULOSE 10 G/15 ML UDC (PYXIS) GT SCH (09:00)
[2019-04-23] MEDS: AMANTADINE SUSP 50 MG/5 ML UDC GT SCH (09:00)
[2019-04-23] MEDS: Z GUARD REMEDY 4 OZ OINT TP SCH ×4 (09:00→21:50)
[2019-04-23] MEDS: AMIODARONE HCL 200 MG TABLET GT SCH (09:00)
[2019-04-23] MEDS: CLOPIDOGREL BISULFATE 75 MG TABLET GT SCH (09:00)
[2019-04-23] MEDS: DOCUSATE SODIUM LIQ 100 MG/10 ML UDC GT SCH (09:00)
[2019-04-23] MEDS: CHLORHEXIDINE GLUCONATE 15 ML UDC MM SCH ×2 (09:00→16:43)
[2019-04-23] MEDS: PRAMIPEXOLE DI-HCL 0.25 MG TABLET GT SCH ×2 (09:00→16:43)
[2019-04-23] MEDS: ACIDOPHILUS/BULGARICUS 1 EACH TAB.CHEW GT SCH ×2 (09:00→16:43)
[2019-04-23] MEDS: ZINC OXIDE 30 GM TUBE TP SCH ×2 (09:00→21:50)
[2019-04-23] MEDS: ATORVASTATIN 40 MG TABLET GT SCH (09:00)
[2019-04-23] MEDS: MULTIVITAMINS,THERAGRAN 1 UDTAB TABLET GT SCH (09:00)
[2019-04-23] MEDS: VITAL AF 1.2 1,000 ML BOTTLE GT PRN (12:01)
[2019-04-23 13:13] VITALS: BP 147/69
[2019-04-23 20:31] VITALS: BP 116/75
[2019-04-24] MEDS: ALBUTEROL FS 2.5 MG/3 ML VIAL.NEB NEB SCH ×4 (02:06→20:16)
[2019-04-24] MEDS: IPRATROPIUM NEB FS 0.5 MG/2.5 ML AMPUL.NEB NEB SCH ×4 (02:06→20:16)
[2019-04-24] MEDS: ENTACAPONE 200 MG TABLET GT SCH ×8 (03:20→21:38)
[2019-04-24] MEDS: CARBIDOPA/LEVODOPA 25/100 MG 1 UDTAB GT SCH ×8 (03:20→21:38)
[2019-04-24] MEDS: PANTOPRAZOLE 40 MG/PACK PACK GT SCH (06:02)
[2019-04-24] MEDS: LEVOTHYROXINE SODIUM 75 MCG TABLET GT SCH (06:02)
[2019-04-24 07:54] VITALS: BP 120/68
[2019-04-24] MEDS: HYDROGEN PEROXIDE 480 ML BOTTLE TP SCH ×2 (08:15→20:22)
[2019-04-24] MEDS: BENZTROPINE MESYLATE (1 MG) 1 MG TABLET GT SCH (09:50)
[2019-04-24] MEDS: DOCUSATE SODIUM LIQ 100 MG/10 ML UDC GT SCH (09:50)
[2019-04-24] MEDS: LACTULOSE 10 G/15 ML UDC (PYXIS) GT SCH (09:50)
[2019-04-24] MEDS: MULTIVITAMINS,THERAGRAN 1 UDTAB TABLET GT SCH (09:51)
[2019-04-24] MEDS: Z GUARD REMEDY 4 OZ OINT TP SCH ×4 (09:51→21:38)
[2019-04-24] MEDS: SENNOSIDES 8.6 MG TABLET GT SCH ×2 (09:51→17:03)
[2019-04-24] MEDS: ATORVASTATIN 40 MG TABLET GT SCH (09:51)
[2019-04-24] MEDS: ACIDOPHILUS/BULGARICUS 1 EACH TAB.CHEW GT SCH ×2 (09:51→17:03)
[2019-04-24] MEDS: FUROSEMIDE 20 MG TABLET GT SCH (09:51)
[2019-04-24] MEDS: PRAMIPEXOLE DI-HCL 0.25 MG TABLET GT SCH ×2 (09:51→17:03)
[2019-04-24] MEDS: AMIODARONE HCL 200 MG TABLET GT SCH (09:51)
[2019-04-24] MEDS: AMANTADINE SUSP 50 MG/5 ML UDC GT SCH (09:51)
[2019-04-24] MEDS: CLOPIDOGREL BISULFATE 75 MG TABLET GT SCH (09:51)
[2019-04-24] MEDS: CHLORHEXIDINE GLUCONATE 15 ML UDC MM SCH ×2 (09:51→17:03)
[2019-04-24] MEDS: VITAMINS A AND D 56.7 GM TUBE TP SCH ×3 (09:52→21:38)
[2019-04-24] MEDS: ZINC OXIDE 30 GM TUBE TP SCH ×2 (09:52→21:38)
[2019-04-24] MEDS: VITAL AF 1.2 1,000 ML BOTTLE GT PRN (10:41)
[2019-04-24 20:11] VITALS: BP 103/65
[2019-04-25] MEDS: CARBIDOPA/LEVODOPA 25/100 MG 1 UDTAB GT SCH ×8 (02:01→21:46)
[2019-04-25] MEDS: ENTACAPONE 200 MG TABLET GT SCH ×8 (02:01→21:46)
[2019-04-25] MEDS: IPRATROPIUM NEB FS 0.5 MG/2.5 ML AMPUL.NEB NEB SCH ×4 (02:18→20:25)
[2019-04-25] MEDS: ALBUTEROL FS 2.5 MG/3 ML VIAL.NEB NEB SCH ×4 (02:18→20:25)
[2019-04-25] MEDS: LEVOTHYROXINE SODIUM 75 MCG TABLET GT SCH (05:59)
[2019-04-25] MEDS: PANTOPRAZOLE 40 MG/PACK PACK GT SCH (05:59)
[2019-04-25 08:06] VITALS: BP 124/58
[2019-04-25] MEDS: ZINC OXIDE 30 GM TUBE TP SCH ×2 (09:00→21:46)
[2019-04-25] MEDS: HYDROGEN PEROXIDE 480 ML BOTTLE TP SCH ×2 (09:00→20:25)
[2019-04-25] MEDS: Z GUARD REMEDY 4 OZ OINT TP SCH ×4 (09:00→21:45)
[2019-04-25] MEDS: VITAMINS A AND D 56.7 GM TUBE TP SCH ×3 (09:00→21:45)
[2019-04-25] MEDS: BENZTROPINE MESYLATE (1 MG) 1 MG TABLET GT SCH (09:18)
[2019-04-25] MEDS: LACTULOSE 10 G/15 ML UDC (PYXIS) GT SCH (09:18)
[2019-04-25] MEDS: DOCUSATE SODIUM LIQ 100 MG/10 ML UDC GT SCH (09:18)
[2019-04-25] MEDS: FUROSEMIDE 20 MG TABLET GT SCH (09:19)
[2019-04-25] MEDS: ATORVASTATIN 40 MG TABLET GT SCH (09:19)
[2019-04-25] MEDS: PRAMIPEXOLE DI-HCL 0.25 MG TABLET GT SCH ×2 (09:19→16:55)
[2019-04-25] MEDS: AMIODARONE HCL 200 MG TABLET GT SCH (09:19)
[2019-04-25] MEDS: ACIDOPHILUS/BULGARICUS 1 EACH TAB.CHEW GT SCH ×2 (09:19→16:55)
[2019-04-25] MEDS: CLOPIDOGREL BISULFATE 75 MG TABLET GT SCH (09:22)
[2019-04-25] MEDS: CHLORHEXIDINE GLUCONATE 15 ML UDC MM SCH ×2 (09:23→16:55)
[2019-04-25] MEDS: AMANTADINE SUSP 50 MG/5 ML UDC GT SCH (09:23)
[2019-04-25] MEDS: SENNOSIDES 8.6 MG TABLET GT SCH ×2 (09:23→16:55)
[2019-04-25] MEDS: MULTIVITAMINS,THERAGRAN 1 UDTAB TABLET GT SCH (09:23)
[2019-04-25] MEDS: VITAL AF 1.2 1,000 ML BOTTLE GT PRN (11:41)
[2019-04-25 20:14] VITALS: BP 133/71
[2019-04-26] MEDS: ALBUTEROL FS 2.5 MG/3 ML VIAL.NEB NEB SCH ×4 (02:14→19:44)
[2019-04-26] MEDS: IPRATROPIUM NEB FS 0.5 MG/2.5 ML AMPUL.NEB NEB SCH ×4 (02:14→19:44)
[2019-04-26] MEDS: CARBIDOPA/LEVODOPA 25/100 MG 1 UDTAB GT SCH ×8 (03:28→21:04)
[2019-04-26] MEDS: ENTACAPONE 200 MG TABLET GT SCH ×8 (03:28→21:04)
[2019-04-26] MEDS: PANTOPRAZOLE 40 MG/PACK PACK GT SCH (05:46)
[2019-04-26] MEDS: LEVOTHYROXINE SODIUM 75 MCG TABLET GT SCH (05:46)
[2019-04-26] MEDS: HYDROGEN PEROXIDE 480 ML BOTTLE TP SCH ×2 (08:41→19:44)
[2019-04-26] MEDS: VITAMINS A AND D 56.7 GM TUBE TP SCH ×3 (09:00→20:12)
[2019-04-26] MEDS: Z GUARD REMEDY 4 OZ OINT TP SCH ×4 (09:00→20:12)
[2019-04-26] MEDS: AMIODARONE HCL 200 MG TABLET GT SCH (09:00)
[2019-04-26] MEDS: ZINC OXIDE 30 GM TUBE TP SCH ×2 (09:00→20:12)
[2019-04-26] MEDS: BENZTROPINE MESYLATE (1 MG) 1 MG TABLET GT SCH (09:48)
[2019-04-26] MEDS: LACTULOSE 10 G/15 ML UDC (PYXIS) GT SCH (09:48)
[2019-04-26] MEDS: DOCUSATE SODIUM LIQ 100 MG/10 ML UDC GT SCH (09:48)
[2019-04-26] MEDS: PRAMIPEXOLE DI-HCL 0.25 MG TABLET GT SCH ×2 (09:53→16:20)
[2019-04-26] MEDS: ACIDOPHILUS/BULGARICUS 1 EACH TAB.CHEW GT SCH ×2 (09:53→16:20)
[2019-04-26] MEDS: ATORVASTATIN 40 MG TABLET GT SCH (09:53)
[2019-04-26] MEDS: FUROSEMIDE 20 MG TABLET GT SCH (09:53)
[2019-04-26] MEDS: CLOPIDOGREL BISULFATE 75 MG TABLET GT SCH (09:54)
[2019-04-26] MEDS: SENNOSIDES 8.6 MG TABLET GT SCH ×2 (09:55→16:29)
[2019-04-26] MEDS: AMANTADINE SUSP 50 MG/5 ML UDC GT SCH (09:55)
[2019-04-26] MEDS: MULTIVITAMINS,THERAGRAN 1 UDTAB TABLET GT SCH (09:56)
[2019-04-26] MEDS: CHLORHEXIDINE GLUCONATE 15 ML UDC MM SCH ×2 (09:56→16:20)
[2019-04-26 11:51] VITALS: BP 121/64
[2019-04-26] MEDS: VITAL AF 1.2 1,000 ML BOTTLE GT PRN (12:04)
[2019-04-26 20:54] VITALS: BP 125/77
[2019-04-27] MEDS: IPRATROPIUM NEB FS 0.5 MG/2.5 ML AMPUL.NEB NEB SCH ×4 (01:34→19:53)
[2019-04-27] MEDS: ALBUTEROL FS 2.5 MG/3 ML VIAL.NEB NEB SCH ×4 (01:34→19:53)
[2019-04-27] MEDS: CARBIDOPA/LEVODOPA 25/100 MG 1 UDTAB GT SCH ×8 (02:23→21:07)
[2019-04-27] MEDS: ENTACAPONE 200 MG TABLET GT SCH ×8 (02:23→21:07)
[2019-04-27] MEDS: LEVOTHYROXINE SODIUM 75 MCG TABLET GT SCH (06:06)
[2019-04-27] MEDS: PANTOPRAZOLE 40 MG/PACK PACK GT SCH (06:06)
[2019-04-27 07:45] VITALS: BP 139/64
[2019-04-27] MEDS: DOCUSATE SODIUM LIQ 100 MG/10 ML UDC GT SCH (08:36)
[2019-04-27] MEDS: BENZTROPINE MESYLATE (1 MG) 1 MG TABLET GT SCH (08:36)
[2019-04-27] MEDS: PRAMIPEXOLE DI-HCL 0.25 MG TABLET GT SCH ×2 (08:37→16:25)
[2019-04-27] MEDS: ATORVASTATIN 40 MG TABLET GT SCH (08:37)
[2019-04-27] MEDS: ACIDOPHILUS/BULGARICUS 1 EACH TAB.CHEW GT SCH ×2 (08:37→16:25)
[2019-04-27] MEDS: FUROSEMIDE 20 MG TABLET GT SCH (08:37)
[2019-04-27] MEDS: AMANTADINE SUSP 50 MG/5 ML UDC GT SCH (08:38)
[2019-04-27] MEDS: CLOPIDOGREL BISULFATE 75 MG TABLET GT SCH (08:38)
[2019-04-27] MEDS: CHLORHEXIDINE GLUCONATE 15 ML UDC MM SCH ×2 (08:38→16:25)
[2019-04-27] MEDS: MULTIVITAMINS,THERAGRAN 1 UDTAB TABLET GT SCH (08:38)
[2019-04-27] MEDS: SENNOSIDES 8.6 MG TABLET GT SCH ×2 (08:38→16:25)
[2019-04-27] MEDS: AMIODARONE HCL 200 MG TABLET GT SCH (08:46)
[2019-04-27] MEDS: HYDROGEN PEROXIDE 480 ML BOTTLE TP SCH ×2 (09:00→21:14)
[2019-04-27] MEDS: Z GUARD REMEDY 4 OZ OINT TP SCH ×4 (09:09→20:45)
[2019-04-27] MEDS: VITAMINS A AND D 56.7 GM TUBE TP SCH ×3 (09:09→20:45)
[2019-04-27] MEDS: ZINC OXIDE 30 GM TUBE TP SCH ×2 (09:09→20:45)
[2019-04-27] MEDS: VITAL AF 1.2 1,000 ML BOTTLE GT PRN (12:22)
[2019-04-27 20:35] VITALS: BP 137/59
[2019-04-28] MEDS: CARBIDOPA/LEVODOPA 25/100 MG 1 UDTAB GT SCH ×8 (01:32→20:47)
[2019-04-28] MEDS: ENTACAPONE 200 MG TABLET GT SCH ×8 (01:32→20:47)
[2019-04-28] MEDS: IPRATROPIUM NEB FS 0.5 MG/2.5 ML AMPUL.NEB NEB SCH ×4 (01:42→20:06)
[2019-04-28] MEDS: ALBUTEROL FS 2.5 MG/3 ML VIAL.NEB NEB SCH ×4 (01:45→20:06)
[2019-04-28] MEDS: LEVOTHYROXINE SODIUM 75 MCG TABLET GT SCH (05:29)
[2019-04-28] MEDS: PANTOPRAZOLE 40 MG/PACK PACK GT SCH (05:29)
[2019-04-28 07:40] VITALS: BP 112/49
[2019-04-28] MEDS: HYDROGEN PEROXIDE 480 ML BOTTLE TP SCH ×2 (08:39→21:07)
[2019-04-28] MEDS: CLOPIDOGREL BISULFATE 75 MG TABLET GT SCH (09:00)
[2019-04-28] MEDS: ATORVASTATIN 40 MG TABLET GT SCH (09:00)
[2019-04-28] MEDS: AMANTADINE SUSP 50 MG/5 ML UDC GT SCH (09:00)
[2019-04-28] MEDS: CHLORHEXIDINE GLUCONATE 15 ML UDC MM SCH ×2 (09:00→17:28)
[2019-04-28] MEDS: PRAMIPEXOLE DI-HCL 0.25 MG TABLET GT SCH ×2 (09:00→17:27)
[2019-04-28] MEDS: SENNOSIDES 8.6 MG TABLET GT SCH ×2 (09:00→17:28)
[2019-04-28] MEDS: FUROSEMIDE 20 MG TABLET GT SCH (09:00)
[2019-04-28] MEDS: AMIODARONE HCL 200 MG TABLET GT SCH (09:00)
[2019-04-28] MEDS: DOCUSATE SODIUM LIQ 100 MG/10 ML UDC GT SCH (09:00)
[2019-04-28] MEDS: MULTIVITAMINS,THERAGRAN 1 UDTAB TABLET GT SCH (09:00)
[2019-04-28] MEDS: Z GUARD REMEDY 4 OZ OINT TP SCH ×4 (09:00→20:13)
[2019-04-28] MEDS: ACIDOPHILUS/BULGARICUS 1 EACH TAB.CHEW GT SCH ×2 (09:00→17:27)
[2019-04-28] MEDS: BENZTROPINE MESYLATE (1 MG) 1 MG TABLET GT SCH (09:00)
[2019-04-28] MEDS: VITAMINS A AND D 56.7 GM TUBE TP SCH ×2 (09:00→20:13)
[2019-04-28] MEDS: VITAL AF 1.2 1,000 ML BOTTLE GT PRN (12:20)
[2019-04-28 19:52] VITALS: BP 148/60
[2019-04-29] MEDS: IPRATROPIUM NEB FS 0.5 MG/2.5 ML AMPUL.NEB NEB SCH ×4 (01:49→19:51)
[2019-04-29] MEDS: ALBUTEROL FS 2.5 MG/3 ML VIAL.NEB NEB SCH ×4 (01:50→19:51)
[2019-04-29] MEDS: ENTACAPONE 200 MG TABLET GT SCH ×8 (02:09→22:24)
[2019-04-29] MEDS: CARBIDOPA/LEVODOPA 25/100 MG 1 UDTAB GT SCH ×8 (02:09→22:24)
[2019-04-29] MEDS: PANTOPRAZOLE 40 MG/PACK PACK GT SCH (05:43)
[2019-04-29] MEDS: LEVOTHYROXINE SODIUM 75 MCG TABLET GT SCH (05:43)
[2019-04-29 07:39] VITALS: BP 140/58
[2019-04-29] MEDS: BENZTROPINE MESYLATE (1 MG) 1 MG TABLET GT SCH (09:22)
[2019-04-29] MEDS: DOCUSATE SODIUM LIQ 100 MG/10 ML UDC GT SCH (09:22)
[2019-04-29] MEDS: ATORVASTATIN 40 MG TABLET GT SCH (09:23)
[2019-04-29] MEDS: AMIODARONE HCL 200 MG TABLET GT SCH (09:23)
[2019-04-29] MEDS: FUROSEMIDE 20 MG TABLET GT SCH (09:23)
[2019-04-29] MEDS: ACIDOPHILUS/BULGARICUS 1 EACH TAB.CHEW GT SCH ×2 (09:23→17:34)
[2019-04-29] MEDS: PRAMIPEXOLE DI-HCL 0.25 MG TABLET GT SCH ×2 (09:23→17:34)
[2019-04-29] MEDS: SENNOSIDES 8.6 MG TABLET GT SCH ×2 (09:23→17:34)
[2019-04-29] MEDS: CLOPIDOGREL BISULFATE 75 MG TABLET GT SCH (09:23)
[2019-04-29] MEDS: CHLORHEXIDINE GLUCONATE 15 ML UDC MM SCH ×2 (09:24→17:34)
[2019-04-29] MEDS: Z GUARD REMEDY 4 OZ OINT TP SCH ×4 (09:24→21:00)
[2019-04-29] MEDS: AMANTADINE SUSP 50 MG/5 ML UDC GT SCH (09:24)
[2019-04-29] MEDS: MULTIVITAMINS,THERAGRAN 1 UDTAB TABLET GT SCH (09:24)
[2019-04-29] MEDS: VITAMINS A AND D 56.7 GM TUBE TP SCH ×2 (09:25→21:00)
[2019-04-29] MEDS: HYDROGEN PEROXIDE 480 ML BOTTLE TP SCH ×2 (10:55→21:00)
[2019-04-29] MEDS: VITAL AF 1.2 1,000 ML BOTTLE GT PRN (12:59)
[2019-04-29 19:51] VITALS: BP 109/61
[2019-04-30] MEDS: CARBIDOPA/LEVODOPA 25/100 MG 1 UDTAB GT SCH ×8 (01:40→21:17)
[2019-04-30] MEDS: ENTACAPONE 200 MG TABLET GT SCH ×8 (01:40→21:18)
[2019-04-30] MEDS: ALBUTEROL FS 2.5 MG/3 ML VIAL.NEB NEB SCH ×4 (02:17→20:15)
[2019-04-30] MEDS: IPRATROPIUM NEB FS 0.5 MG/2.5 ML AMPUL.NEB NEB SCH ×4 (02:17→20:15)
[2019-04-30] MEDS: LEVOTHYROXINE SODIUM 75 MCG TABLET GT SCH (06:28)
[2019-04-30] MEDS: PANTOPRAZOLE 40 MG/PACK PACK GT SCH (06:28)
[2019-04-30 07:56] VITALS: BP 130/70
[2019-04-30] MEDS: FUROSEMIDE 20 MG TABLET GT SCH (09:00)
[2019-04-30] MEDS: CHLORHEXIDINE GLUCONATE 15 ML UDC MM SCH ×2 (09:00→16:32)
[2019-04-30] MEDS: MULTIVITAMINS,THERAGRAN 1 UDTAB TABLET GT SCH (09:00)
[2019-04-30] MEDS: AMANTADINE SUSP 50 MG/5 ML UDC GT SCH (09:00)
[2019-04-30] MEDS: CLOPIDOGREL BISULFATE 75 MG TABLET GT SCH (09:00)
[2019-04-30] MEDS: HYDROGEN PEROXIDE 480 ML BOTTLE TP SCH ×2 (09:00→21:18)
[2019-04-30] MEDS: BENZTROPINE MESYLATE (1 MG) 1 MG TABLET GT SCH (09:00)
[2019-04-30] MEDS: VITAMINS A AND D 56.7 GM TUBE TP SCH ×2 (09:00→21:18)
[2019-04-30] MEDS: PRAMIPEXOLE DI-HCL 0.25 MG TABLET GT SCH ×2 (09:00→16:32)
[2019-04-30] MEDS: Z GUARD REMEDY 4 OZ OINT TP SCH ×4 (09:00→21:18)
[2019-04-30] MEDS: AMIODARONE HCL 200 MG TABLET GT SCH (09:00)
[2019-04-30] MEDS: ATORVASTATIN 40 MG TABLET GT SCH (09:00)
[2019-04-30] MEDS: DOCUSATE SODIUM LIQ 100 MG/10 ML UDC GT SCH (09:00)
[2019-04-30] MEDS: SENNOSIDES 8.6 MG TABLET GT SCH ×2 (09:00→16:32)
[2019-04-30] MEDS: ACIDOPHILUS/BULGARICUS 1 EACH TAB.CHEW GT SCH ×2 (09:00→16:32)
[2019-04-30] MEDS: VITAL AF 1.2 1,000 ML BOTTLE GT PRN (12:02)
[2019-04-30 20:46] VITALS: BP 115/59
[2019-05-01] MEDS: CARBIDOPA/LEVODOPA 25/100 MG 1 UDTAB GT SCH ×8 (01:32→21:47)
[2019-05-01] MEDS: ENTACAPONE 200 MG TABLET GT SCH ×8 (01:32→21:47)
[2019-05-01] MEDS: ALBUTEROL FS 2.5 MG/3 ML VIAL.NEB NEB SCH ×4 (01:51→19:42)
[2019-05-01] MEDS: IPRATROPIUM NEB FS 0.5 MG/2.5 ML AMPUL.NEB NEB SCH ×4 (01:51→19:42)
[2019-05-01] MEDS: LEVOTHYROXINE SODIUM 75 MCG TABLET GT SCH (05:19)
[2019-05-01] MEDS: PANTOPRAZOLE 40 MG/PACK PACK GT SCH (05:19)
[2019-05-01] MEDS: HYDROGEN PEROXIDE 480 ML BOTTLE TP SCH ×2 (08:24→21:00)
[2019-05-01] MEDS: DOCUSATE SODIUM LIQ 100 MG/10 ML UDC GT SCH (09:40)
[2019-05-01] MEDS: BENZTROPINE MESYLATE (1 MG) 1 MG TABLET GT SCH (09:40)
[2019-05-01] MEDS: ATORVASTATIN 40 MG TABLET GT SCH (09:41)
[2019-05-01] MEDS: AMIODARONE HCL 200 MG TABLET GT SCH (09:41)
[2019-05-01] MEDS: SENNOSIDES 8.6 MG TABLET GT SCH ×2 (09:41→17:04)
[2019-05-01] MEDS: CHLORHEXIDINE GLUCONATE 15 ML UDC MM SCH ×2 (09:41→17:04)
[2019-05-01] MEDS: CLOPIDOGREL BISULFATE 75 MG TABLET GT SCH (09:41)
[2019-05-01] MEDS: FUROSEMIDE 20 MG TABLET GT SCH (09:41)
[2019-05-01] MEDS: ACIDOPHILUS/BULGARICUS 1 EACH TAB.CHEW GT SCH ×2 (09:41→17:04)
[2019-05-01] MEDS: AMANTADINE SUSP 50 MG/5 ML UDC GT SCH (09:41)
[2019-05-01] MEDS: VITAMINS A AND D 56.7 GM TUBE TP SCH ×2 (09:41→21:47)
[2019-05-01] MEDS: MULTIVITAMINS,THERAGRAN 1 UDTAB TABLET GT SCH (09:41)
[2019-05-01] MEDS: Z GUARD REMEDY 4 OZ OINT TP SCH ×4 (09:41→21:47)
[2019-05-01] MEDS: PRAMIPEXOLE DI-HCL 0.25 MG TABLET GT SCH ×2 (09:41→17:04)
[2019-05-01 11:48] VITALS: BP 155/80
[2019-05-01] MEDS: VITAL AF 1.2 1,000 ML BOTTLE GT PRN (12:26)
[2019-05-01 20:36] VITALS: BP 112/60
[2019-05-02] MEDS: IPRATROPIUM NEB FS 0.5 MG/2.5 ML AMPUL.NEB NEB SCH ×4 (01:36→19:08)
[2019-05-02] MEDS: ALBUTEROL FS 2.5 MG/3 ML VIAL.NEB NEB SCH ×4 (01:36→19:08)
[2019-05-02] MEDS: ENTACAPONE 200 MG TABLET GT SCH ×8 (02:19→21:37)
[2019-05-02] MEDS: CARBIDOPA/LEVODOPA 25/100 MG 1 UDTAB GT SCH ×8 (02:19→21:37)
[2019-05-02] MEDS: LEVOTHYROXINE SODIUM 75 MCG TABLET GT SCH (05:40)
[2019-05-02] MEDS: VITAL AF 1.2 1,000 ML BOTTLE GT PRN (05:40)
[2019-05-02] MEDS: PANTOPRAZOLE 40 MG/PACK PACK GT SCH (05:40)
[2019-05-02] MEDS: HYDROGEN PEROXIDE 480 ML BOTTLE TP SCH ×2 (08:05→20:10)
[2019-05-02] MEDS: DOCUSATE SODIUM LIQ 100 MG/10 ML UDC GT SCH (09:00)
[2019-05-02] MEDS: ACIDOPHILUS/BULGARICUS 1 EACH TAB.CHEW GT SCH ×2 (09:00→16:30)
[2019-05-02] MEDS: BENZTROPINE MESYLATE (1 MG) 1 MG TABLET GT SCH (09:00)
[2019-05-02] MEDS: MULTIVITAMINS,THERAGRAN 1 UDTAB TABLET GT SCH (09:00)
[2019-05-02] MEDS: CHLORHEXIDINE GLUCONATE 15 ML UDC MM SCH ×2 (09:00→16:36)
[2019-05-02] MEDS: CLOPIDOGREL BISULFATE 75 MG TABLET GT SCH (09:00)
[2019-05-02] MEDS: Z GUARD REMEDY 4 OZ OINT TP SCH ×4 (09:00→21:37)
[2019-05-02] MEDS: AMANTADINE SUSP 50 MG/5 ML UDC GT SCH (09:00)
[2019-05-02] MEDS: SENNOSIDES 8.6 MG TABLET GT SCH ×2 (09:00→16:36)
[2019-05-02] MEDS: PRAMIPEXOLE DI-HCL 0.25 MG TABLET GT SCH ×2 (09:00→16:36)
[2019-05-02] MEDS: VITAMINS A AND D 56.7 GM TUBE TP SCH ×2 (09:00→21:37)
[2019-05-02] MEDS: AMIODARONE HCL 200 MG TABLET GT SCH (09:00)
[2019-05-02] MEDS: ATORVASTATIN 40 MG TABLET GT SCH (09:00)
[2019-05-02] MEDS: FUROSEMIDE 20 MG TABLET GT SCH (09:00)
[2019-05-02 12:06] VITALS: BP 139/61
[2019-05-02 21:56] VITALS: BP 133/79
[2019-05-03] MEDS: ALBUTEROL FS 2.5 MG/3 ML VIAL.NEB NEB SCH ×4 (01:21→20:24)
[2019-05-03] MEDS: IPRATROPIUM NEB FS 0.5 MG/2.5 ML AMPUL.NEB NEB SCH ×4 (01:21→20:24)
[2019-05-03] MEDS: ENTACAPONE 200 MG TABLET GT SCH ×8 (02:35→21:15)
[2019-05-03] MEDS: CARBIDOPA/LEVODOPA 25/100 MG 1 UDTAB GT SCH ×8 (02:35→21:15)
[2019-05-03] MEDS: PANTOPRAZOLE 40 MG/PACK PACK GT SCH (06:34)
[2019-05-03] MEDS: LEVOTHYROXINE SODIUM 75 MCG TABLET GT SCH (06:34)
[2019-05-03] MEDS: VITAL AF 1.2 1,000 ML BOTTLE GT PRN (06:34)
[2019-05-03 07:43] VITALS: BP 122/64
[2019-05-03] MEDS: HYDROGEN PEROXIDE 480 ML BOTTLE TP SCH ×2 (09:30→20:24)
[2019-05-03] MEDS: PRAMIPEXOLE DI-HCL 0.25 MG TABLET GT SCH ×2 (09:45→16:42)
[2019-05-03] MEDS: SENNOSIDES 8.6 MG TABLET GT SCH ×2 (09:45→16:42)
[2019-05-03] MEDS: MULTIVITAMINS,THERAGRAN 1 UDTAB TABLET GT SCH (09:45)
[2019-05-03] MEDS: ATORVASTATIN 40 MG TABLET GT SCH (09:45)
[2019-05-03] MEDS: VITAMINS A AND D 56.7 GM TUBE TP SCH ×2 (09:45→21:15)
[2019-05-03] MEDS: Z GUARD REMEDY 4 OZ OINT TP SCH ×4 (09:45→21:15)
[2019-05-03] MEDS: CLOPIDOGREL BISULFATE 75 MG TABLET GT SCH (09:45)
[2019-05-03] MEDS: AMANTADINE SUSP 50 MG/5 ML UDC GT SCH (09:45)
[2019-05-03] MEDS: ACIDOPHILUS/BULGARICUS 1 EACH TAB.CHEW GT SCH ×2 (09:45→16:42)
[2019-05-03] MEDS: BENZTROPINE MESYLATE (1 MG) 1 MG TABLET GT SCH (09:45)
[2019-05-03] MEDS: DOCUSATE SODIUM LIQ 100 MG/10 ML UDC GT SCH (09:45)
[2019-05-03] MEDS: CHLORHEXIDINE GLUCONATE 15 ML UDC MM SCH ×2 (09:45→16:42)
[2019-05-03] MEDS: FUROSEMIDE 20 MG TABLET GT SCH (09:45)
[2019-05-03] MEDS: AMIODARONE HCL 200 MG TABLET GT SCH (09:45)
[2019-05-03 20:54] VITALS: BP 118/68
[2019-05-04] MEDS: ALBUTEROL FS 2.5 MG/3 ML VIAL.NEB NEB SCH ×4 (01:49→20:10)
[2019-05-04] MEDS: IPRATROPIUM NEB FS 0.5 MG/2.5 ML AMPUL.NEB NEB SCH ×4 (01:49→20:10)
[2019-05-04] MEDS: CARBIDOPA/LEVODOPA 25/100 MG 1 UDTAB GT SCH ×8 (02:30→21:52)
[2019-05-04] MEDS: ENTACAPONE 200 MG TABLET GT SCH ×8 (02:30→21:52)
[2019-05-04] MEDS: VITAL AF 1.2 1,000 ML BOTTLE GT PRN (03:51)
[2019-05-04] MEDS: LEVOTHYROXINE SODIUM 75 MCG TABLET GT SCH (05:46)
[2019-05-04] MEDS: PANTOPRAZOLE 40 MG/PACK PACK GT SCH (05:46)
[2019-05-04] MEDS: HYDROGEN PEROXIDE 480 ML BOTTLE TP SCH ×2 (07:13→21:36)
[2019-05-04 08:03] VITALS: BP 110/66
[2019-05-04] MEDS: VITAMINS A AND D 56.7 GM TUBE TP SCH ×2 (09:00→21:52)
[2019-05-04] MEDS: Z GUARD REMEDY 4 OZ OINT TP SCH ×4 (09:00→21:52)
[2019-05-04] MEDS: BENZTROPINE MESYLATE (1 MG) 1 MG TABLET GT SCH (09:17)
[2019-05-04] MEDS: DOCUSATE SODIUM LIQ 100 MG/10 ML UDC GT SCH (09:17)
[2019-05-04] MEDS: AMIODARONE HCL 200 MG TABLET GT SCH (09:19)
[2019-05-04] MEDS: ACIDOPHILUS/BULGARICUS 1 EACH TAB.CHEW GT SCH ×2 (09:19→16:37)
[2019-05-04] MEDS: FUROSEMIDE 20 MG TABLET GT SCH (09:19)
[2019-05-04] MEDS: SENNOSIDES 8.6 MG TABLET GT SCH ×2 (09:20→16:37)
[2019-05-04] MEDS: PRAMIPEXOLE DI-HCL 0.25 MG TABLET GT SCH ×2 (09:20→16:37)
[2019-05-04] MEDS: CLOPIDOGREL BISULFATE 75 MG TABLET GT SCH (09:20)
[2019-05-04] MEDS: ATORVASTATIN 40 MG TABLET GT SCH (09:20)
[2019-05-04] MEDS: AMANTADINE SUSP 50 MG/5 ML UDC GT SCH (09:21)
[2019-05-04] MEDS: MULTIVITAMINS,THERAGRAN 1 UDTAB TABLET GT SCH (09:22)
[2019-05-04] MEDS: CHLORHEXIDINE GLUCONATE 15 ML UDC MM SCH ×2 (09:22→16:37)
[2019-05-04 21:06] VITALS: BP 124/67
[2019-05-05] MEDS: VITAL AF 1.2 1,000 ML BOTTLE GT PRN ×2 (00:03→17:34)
[2019-05-05] MEDS: ALBUTEROL FS 2.5 MG/3 ML VIAL.NEB NEB SCH ×4 (02:04→19:43)
[2019-05-05] MEDS: IPRATROPIUM NEB FS 0.5 MG/2.5 ML AMPUL.NEB NEB SCH ×4 (02:04→19:43)
[2019-05-05] MEDS: CARBIDOPA/LEVODOPA 25/100 MG 1 UDTAB GT SCH ×8 (02:52→21:45)
[2019-05-05] MEDS: ENTACAPONE 200 MG TABLET GT SCH ×8 (02:52→21:45)
[2019-05-05] MEDS: PANTOPRAZOLE 40 MG/PACK PACK GT SCH (06:38)
[2019-05-05] MEDS: LEVOTHYROXINE SODIUM 75 MCG TABLET GT SCH (06:38)
[2019-05-05] MEDS: BENZTROPINE MESYLATE (1 MG) 1 MG TABLET GT SCH (08:10)
[2019-05-05 08:11] VITALS: BP 122/74
[2019-05-05] MEDS: DOCUSATE SODIUM LIQ 100 MG/10 ML UDC GT SCH (08:11)
[2019-05-05] MEDS: ATORVASTATIN 40 MG TABLET GT SCH (08:12)
[2019-05-05] MEDS: AMIODARONE HCL 200 MG TABLET GT SCH (08:12)
[2019-05-05] MEDS: FUROSEMIDE 20 MG TABLET GT SCH (08:12)
[2019-05-05] MEDS: PRAMIPEXOLE DI-HCL 0.25 MG TABLET GT SCH ×2 (08:12→16:57)
[2019-05-05] MEDS: ACIDOPHILUS/BULGARICUS 1 EACH TAB.CHEW GT SCH ×2 (08:12→16:57)
[2019-05-05] MEDS: CHLORHEXIDINE GLUCONATE 15 ML UDC MM SCH ×2 (08:13→16:57)
[2019-05-05] MEDS: AMANTADINE SUSP 50 MG/5 ML UDC GT SCH (08:13)
[2019-05-05] MEDS: Z GUARD REMEDY 4 OZ OINT TP SCH ×4 (08:13→21:45)
[2019-05-05] MEDS: VITAMINS A AND D 56.7 GM TUBE TP SCH ×2 (08:13→21:45)
[2019-05-05] MEDS: MULTIVITAMINS,THERAGRAN 1 UDTAB TABLET GT SCH (08:13)
[2019-05-05] MEDS: CLOPIDOGREL BISULFATE 75 MG TABLET GT SCH (08:13)
[2019-05-05] MEDS: SENNOSIDES 8.6 MG TABLET GT SCH ×2 (08:13→16:57)
[2019-05-05] MEDS: HYDROGEN PEROXIDE 480 ML BOTTLE TP SCH ×2 (09:45→21:15)
[2019-05-05 20:34] VITALS: BP 103/59
[2019-05-06] MEDS: IPRATROPIUM NEB FS 0.5 MG/2.5 ML AMPUL.NEB NEB SCH ×4 (00:45→20:13)
[2019-05-06] MEDS: ALBUTEROL FS 2.5 MG/3 ML VIAL.NEB NEB SCH ×4 (00:45→20:14)
[2019-05-06] MEDS: CARBIDOPA/LEVODOPA 25/100 MG 1 UDTAB GT SCH ×8 (02:42→21:14)
[2019-05-06] MEDS: ENTACAPONE 200 MG TABLET GT SCH ×8 (02:42→21:14)
[2019-05-06] MEDS: PANTOPRAZOLE 40 MG/PACK PACK GT SCH (06:18)
[2019-05-06] MEDS: LEVOTHYROXINE SODIUM 75 MCG TABLET GT SCH (06:18)
[2019-05-06 07:38] VITALS: BP 123/73
[2019-05-06] MEDS: BENZTROPINE MESYLATE (1 MG) 1 MG TABLET GT SCH (08:14)
[2019-05-06] MEDS: DOCUSATE SODIUM LIQ 100 MG/10 ML UDC GT SCH (08:14)
[2019-05-06] MEDS: ACIDOPHILUS/BULGARICUS 1 EACH TAB.CHEW GT SCH ×2 (08:16→16:21)
[2019-05-06] MEDS: FUROSEMIDE 20 MG TABLET GT SCH (08:16)
[2019-05-06] MEDS: AMIODARONE HCL 200 MG TABLET GT SCH (08:16)
[2019-05-06] MEDS: PRAMIPEXOLE DI-HCL 0.25 MG TABLET GT SCH ×2 (08:18→16:21)
[2019-05-06] MEDS: SENNOSIDES 8.6 MG TABLET GT SCH ×2 (08:18→16:21)
[2019-05-06] MEDS: ATORVASTATIN 40 MG TABLET GT SCH (08:18)
[2019-05-06] MEDS: CLOPIDOGREL BISULFATE 75 MG TABLET GT SCH (08:18)
[2019-05-06] MEDS: AMANTADINE SUSP 50 MG/5 ML UDC GT SCH (08:19)
[2019-05-06] MEDS: MULTIVITAMINS,THERAGRAN 1 UDTAB TABLET GT SCH (08:19)
[2019-05-06] MEDS: Z GUARD REMEDY 4 OZ OINT TP SCH ×4 (08:19→21:11)
[2019-05-06] MEDS: CHLORHEXIDINE GLUCONATE 15 ML UDC MM SCH ×2 (08:19→16:21)
[2019-05-06] MEDS: VITAMINS A AND D 56.7 GM TUBE TP SCH ×2 (08:20→21:14)
[2019-05-06] MEDS: HYDROGEN PEROXIDE 480 ML BOTTLE TP SCH ×2 (08:28→20:14)
[2019-05-06] MEDS: VITAL AF 1.2 1,000 ML BOTTLE GT PRN (16:42)
[2019-05-07] MEDS: IPRATROPIUM NEB FS 0.5 MG/2.5 ML AMPUL.NEB NEB SCH ×4 (01:58→19:44)
[2019-05-07] MEDS: ALBUTEROL FS 2.5 MG/3 ML VIAL.NEB NEB SCH ×4 (01:59→19:44)
[2019-05-07] MEDS: ENTACAPONE 200 MG TABLET GT SCH ×8 (03:11→21:27)
[2019-05-07] MEDS: CARBIDOPA/LEVODOPA 25/100 MG 1 UDTAB GT SCH ×8 (03:11→21:27)
[2019-05-07] MEDS: PANTOPRAZOLE 40 MG/PACK PACK GT SCH (05:50)
[2019-05-07] MEDS: LEVOTHYROXINE SODIUM 75 MCG TABLET GT SCH (05:51)
[2019-05-07 08:06] VITALS: BP 128/77
[2019-05-07] MEDS: DOCUSATE SODIUM LIQ 100 MG/10 ML UDC GT SCH (09:24)
[2019-05-07] MEDS: BENZTROPINE MESYLATE (1 MG) 1 MG TABLET GT SCH (09:24)
[2019-05-07] MEDS: ACIDOPHILUS/BULGARICUS 1 EACH TAB.CHEW GT SCH ×2 (09:26→17:00)
[2019-05-07] MEDS: AMIODARONE HCL 200 MG TABLET GT SCH (09:26)
[2019-05-07] MEDS: ATORVASTATIN 40 MG TABLET GT SCH (09:27)
[2019-05-07] MEDS: FUROSEMIDE 20 MG TABLET GT SCH (09:27)
[2019-05-07] MEDS: CLOPIDOGREL BISULFATE 75 MG TABLET GT SCH (09:28)
[2019-05-07] MEDS: PRAMIPEXOLE DI-HCL 0.25 MG TABLET GT SCH ×2 (09:28→17:00)
[2019-05-07] MEDS: SENNOSIDES 8.6 MG TABLET GT SCH ×2 (09:28→17:00)
[2019-05-07] MEDS: CHLORHEXIDINE GLUCONATE 15 ML UDC MM SCH ×2 (09:30→17:00)
[2019-05-07] MEDS: VITAMINS A AND D 56.7 GM TUBE TP SCH ×2 (09:30→21:27)
[2019-05-07] MEDS: Z GUARD REMEDY 4 OZ OINT TP SCH ×4 (09:30→21:27)
[2019-05-07] MEDS: MULTIVITAMINS,THERAGRAN 1 UDTAB TABLET GT SCH (09:30)
[2019-05-07] MEDS: AMANTADINE SUSP 50 MG/5 ML UDC GT SCH (09:30)
[2019-05-07] MEDS: HYDROGEN PEROXIDE 480 ML BOTTLE TP SCH ×2 (09:45→21:00)
[2019-05-07 20:11] VITALS: BP 122/66
[2019-05-08] MEDS: ALBUTEROL FS 2.5 MG/3 ML VIAL.NEB NEB SCH ×4 (00:56→19:29)
[2019-05-08] MEDS: IPRATROPIUM NEB FS 0.5 MG/2.5 ML AMPUL.NEB NEB SCH ×4 (00:56→19:29)
[2019-05-08] MEDS: ENTACAPONE 200 MG TABLET GT SCH ×8 (03:22→21:14)
[2019-05-08] MEDS: CARBIDOPA/LEVODOPA 25/100 MG 1 UDTAB GT SCH ×8 (03:22→21:14)
[2019-05-08] MEDS: LEVOTHYROXINE SODIUM 75 MCG TABLET GT SCH (06:14)
[2019-05-08] MEDS: PANTOPRAZOLE 40 MG/PACK PACK GT SCH (06:14)
[2019-05-08] MEDS: HYDROGEN PEROXIDE 480 ML BOTTLE TP SCH ×2 (07:45→21:15)
[2019-05-08 08:10] VITALS: BP 114/90
[2019-05-08] MEDS: BENZTROPINE MESYLATE (1 MG) 1 MG TABLET GT SCH (08:57)
[2019-05-08] MEDS: MAGNESIUM HYDROXIDE 30 ML UDC GT PRN (09:00)
[2019-05-08] MEDS: DOCUSATE SODIUM LIQ 100 MG/10 ML UDC GT SCH (09:00)
[2019-05-08] MEDS: AMIODARONE HCL 200 MG TABLET GT SCH (09:02)
[2019-05-08] MEDS: ACIDOPHILUS/BULGARICUS 1 EACH TAB.CHEW GT SCH ×2 (09:03→16:31)
[2019-05-08] MEDS: PRAMIPEXOLE DI-HCL 0.25 MG TABLET GT SCH ×2 (09:04→16:31)
[2019-05-08] MEDS: ATORVASTATIN 40 MG TABLET GT SCH (09:04)
[2019-05-08] MEDS: SENNOSIDES 8.6 MG TABLET GT SCH ×2 (09:04→16:31)
[2019-05-08] MEDS: CLOPIDOGREL BISULFATE 75 MG TABLET GT SCH (09:04)
[2019-05-08] MEDS: FUROSEMIDE 20 MG TABLET GT SCH (09:04)
[2019-05-08] MEDS: AMANTADINE SUSP 50 MG/5 ML UDC GT SCH (09:06)
[2019-05-08] MEDS: MULTIVITAMINS,THERAGRAN 1 UDTAB TABLET GT SCH (09:06)
[2019-05-08] MEDS: Z GUARD REMEDY 4 OZ OINT TP SCH ×4 (09:06→21:13)
[2019-05-08] MEDS: CHLORHEXIDINE GLUCONATE 15 ML UDC MM SCH ×2 (09:06→16:31)
[2019-05-08] MEDS: VITAMINS A AND D 56.7 GM TUBE TP SCH ×2 (09:06→21:14)
[2019-05-08] MEDS: BISACODYL SUPP (10 MG) 10 MG/SUPP.RECT SUPP.RECT RC PRN (18:44)
[2019-05-08] MEDS: VITAL AF 1.2 1,000 ML BOTTLE GT PRN (18:44)
[2019-05-08 20:08] VITALS: BP 107/62
[2019-05-09] MEDS: IPRATROPIUM NEB FS 0.5 MG/2.5 ML AMPUL.NEB NEB SCH ×4 (01:19→22:51)
[2019-05-09] MEDS: ALBUTEROL FS 2.5 MG/3 ML VIAL.NEB NEB SCH ×4 (01:19→22:51)
[2019-05-09] MEDS: CARBIDOPA/LEVODOPA 25/100 MG 1 UDTAB GT SCH ×8 (02:30→21:01)
[2019-05-09] MEDS: ENTACAPONE 200 MG TABLET GT SCH ×8 (02:30→21:00)
[2019-05-09] MEDS: PANTOPRAZOLE 40 MG/PACK PACK GT SCH (06:02)
[2019-05-09] MEDS: LEVOTHYROXINE SODIUM 75 MCG TABLET GT SCH (06:02)
[2019-05-09 07:55] VITALS: BP 129/62
[2019-05-09] MEDS: HYDROGEN PEROXIDE 480 ML BOTTLE TP SCH ×2 (08:12→22:49)
[2019-05-09] MEDS: DOCUSATE SODIUM LIQ 100 MG/10 ML UDC GT SCH (08:18)
[2019-05-09] MEDS: BENZTROPINE MESYLATE (1 MG) 1 MG TABLET GT SCH (08:18)
[2019-05-09] MEDS: AMIODARONE HCL 200 MG TABLET GT SCH (08:20)
[2019-05-09] MEDS: AMANTADINE SUSP 50 MG/5 ML UDC GT SCH (08:21)
[2019-05-09] MEDS: PRAMIPEXOLE DI-HCL 0.25 MG TABLET GT SCH ×2 (08:21→16:41)
[2019-05-09] MEDS: ATORVASTATIN 40 MG TABLET GT SCH (08:21)
[2019-05-09] MEDS: FUROSEMIDE 20 MG TABLET GT SCH (08:21)
[2019-05-09] MEDS: CHLORHEXIDINE GLUCONATE 15 ML UDC MM SCH ×2 (08:21→16:41)
[2019-05-09] MEDS: ACIDOPHILUS/BULGARICUS 1 EACH TAB.CHEW GT SCH ×2 (08:21→16:41)
[2019-05-09] MEDS: MULTIVITAMINS,THERAGRAN 1 UDTAB TABLET GT SCH (08:21)
[2019-05-09] MEDS: CLOPIDOGREL BISULFATE 75 MG TABLET GT SCH (08:21)
[2019-05-09] MEDS: SENNOSIDES 8.6 MG TABLET GT SCH ×2 (08:21→16:41)
[2019-05-09] MEDS: Z GUARD REMEDY 4 OZ OINT TP SCH ×4 (08:22→21:00)
[2019-05-09] MEDS: VITAMINS A AND D 56.7 GM TUBE TP SCH ×2 (08:22→21:00)
[2019-05-09] MEDS: VITAL AF 1.2 1,000 ML BOTTLE GT PRN (17:15)
[2019-05-09 19:45] VITALS: BP 114/52
[2019-05-10] MEDS: ENTACAPONE 200 MG TABLET GT SCH ×8 (02:28→21:11)
[2019-05-10] MEDS: CARBIDOPA/LEVODOPA 25/100 MG 1 UDTAB GT SCH ×8 (02:28→21:11)
[2019-05-10] MEDS: IPRATROPIUM NEB FS 0.5 MG/2.5 ML AMPUL.NEB NEB SCH ×4 (02:55→19:30)
[2019-05-10] MEDS: ALBUTEROL FS 2.5 MG/3 ML VIAL.NEB NEB SCH ×4 (02:55→19:30)
[2019-05-10] MEDS: LEVOTHYROXINE SODIUM 75 MCG TABLET GT SCH (06:16)
[2019-05-10] MEDS: PANTOPRAZOLE 40 MG/PACK PACK GT SCH (06:16)
[2019-05-10 07:36] VITALS: BP 143/71
[2019-05-10] MEDS: BENZTROPINE MESYLATE (1 MG) 1 MG TABLET GT SCH (08:44)
[2019-05-10] MEDS: DOCUSATE SODIUM LIQ 100 MG/10 ML UDC GT SCH (08:47)
[2019-05-10] MEDS: ACIDOPHILUS/BULGARICUS 1 EACH TAB.CHEW GT SCH ×2 (08:48→17:00)
[2019-05-10] MEDS: SENNOSIDES 8.6 MG TABLET GT SCH ×2 (08:48→17:07)
[2019-05-10] MEDS: CLOPIDOGREL BISULFATE 75 MG TABLET GT SCH (08:48)
[2019-05-10] MEDS: FUROSEMIDE 20 MG TABLET GT SCH (08:48)
[2019-05-10] MEDS: PRAMIPEXOLE DI-HCL 0.25 MG TABLET GT SCH ×2 (08:48→17:18)
[2019-05-10] MEDS: ATORVASTATIN 40 MG TABLET GT SCH (08:48)
[2019-05-10] MEDS: AMANTADINE SUSP 50 MG/5 ML UDC GT SCH (08:48)
[2019-05-10] MEDS: MULTIVITAMINS,THERAGRAN 1 UDTAB TABLET GT SCH (08:48)
[2019-05-10] MEDS: AMIODARONE HCL 200 MG TABLET GT SCH (08:48)
[2019-05-10] MEDS: Z GUARD REMEDY 4 OZ OINT TP SCH ×4 (08:49→21:11)
[2019-05-10] MEDS: VITAMINS A AND D 56.7 GM TUBE TP SCH ×2 (08:49→21:11)
[2019-05-10] MEDS: CHLORHEXIDINE GLUCONATE 15 ML UDC MM SCH ×2 (08:49→17:07)
[2019-05-10 19:56] VITALS: BP 105/53
[2019-05-10] MEDS: HYDROGEN PEROXIDE 480 ML BOTTLE TP SCH (20:44)
[2019-05-11] MEDS: IPRATROPIUM NEB FS 0.5 MG/2.5 ML AMPUL.NEB NEB SCH ×4 (01:14→21:21)
[2019-05-11] MEDS: ALBUTEROL FS 2.5 MG/3 ML VIAL.NEB NEB SCH ×4 (01:14→21:21)
[2019-05-11] MEDS: ENTACAPONE 200 MG TABLET GT SCH ×8 (02:12→21:10)
[2019-05-11] MEDS: CARBIDOPA/LEVODOPA 25/100 MG 1 UDTAB GT SCH ×8 (02:12→21:10)
[2019-05-11] MEDS: LEVOTHYROXINE SODIUM 75 MCG TABLET GT SCH (05:20)
[2019-05-11] MEDS: PANTOPRAZOLE 40 MG/PACK PACK GT SCH (05:20)
[2019-05-11 07:32] VITALS: BP 124/71
[2019-05-11] MEDS: PRAMIPEXOLE DI-HCL 0.25 MG TABLET GT SCH ×2 (09:00→16:48)
[2019-05-11] MEDS: Z GUARD REMEDY 4 OZ OINT TP SCH ×4 (09:00→20:25)
[2019-05-11] MEDS: AMANTADINE SUSP 50 MG/5 ML UDC GT SCH (09:00)
[2019-05-11] MEDS: ACIDOPHILUS/BULGARICUS 1 EACH TAB.CHEW GT SCH ×2 (09:00→16:38)
[2019-05-11] MEDS: VITAMINS A AND D 56.7 GM TUBE TP SCH ×2 (09:00→20:25)
[2019-05-11] MEDS: MULTIVITAMINS,THERAGRAN 1 UDTAB TABLET GT SCH (09:00)
[2019-05-11] MEDS: CHLORHEXIDINE GLUCONATE 15 ML UDC MM SCH ×2 (09:00→16:48)
[2019-05-11] MEDS: AMIODARONE HCL 200 MG TABLET GT SCH (09:00)
[2019-05-11] MEDS: ATORVASTATIN 40 MG TABLET GT SCH (09:00)
[2019-05-11] MEDS: BENZTROPINE MESYLATE (1 MG) 1 MG TABLET GT SCH (09:00)
[2019-05-11] MEDS: SENNOSIDES 8.6 MG TABLET GT SCH ×2 (09:00→16:50)
[2019-05-11] MEDS: DOCUSATE SODIUM LIQ 100 MG/10 ML UDC GT SCH (09:00)
[2019-05-11] MEDS: CLOPIDOGREL BISULFATE 75 MG TABLET GT SCH (09:00)
[2019-05-11] MEDS: FUROSEMIDE 20 MG TABLET GT SCH (09:00)
[2019-05-11] MEDS: HYDROGEN PEROXIDE 480 ML BOTTLE TP SCH ×2 (09:49→21:21)
[2019-05-11] MEDS: VITAL AF 1.2 1,000 ML BOTTLE GT PRN (11:18)
[2019-05-11] MEDS ORDERED: ACETAMINOPHEN 650 MG/20 ML UDC- SA PATIENTS-PAIN ONLY GT PRN (17:00)
[2019-05-11 20:22] VITALS: BP 140/67
[2019-05-12] MEDS: ALBUTEROL FS 2.5 MG/3 ML VIAL.NEB NEB SCH ×4 (01:56→20:18)
[2019-05-12] MEDS: IPRATROPIUM NEB FS 0.5 MG/2.5 ML AMPUL.NEB NEB SCH ×4 (01:56→20:18)
[2019-05-12] MEDS: CARBIDOPA/LEVODOPA 25/100 MG 1 UDTAB GT SCH ×8 (03:30→21:54)
[2019-05-12] MEDS: ENTACAPONE 200 MG TABLET GT SCH ×8 (03:30→21:54)
[2019-05-12] MEDS: LEVOTHYROXINE SODIUM 75 MCG TABLET GT SCH (05:15)
[2019-05-12] MEDS: PANTOPRAZOLE 40 MG/PACK PACK GT SCH (05:15)
[2019-05-12 07:40] VITALS: BP 137/49
[2019-05-12] MEDS: HYDROGEN PEROXIDE 480 ML BOTTLE TP SCH ×2 (09:00→21:30)
[2019-05-12] MEDS: Z GUARD REMEDY 4 OZ OINT TP SCH ×4 (09:00→21:54)
[2019-05-12] MEDS: VITAMINS A AND D 56.7 GM TUBE TP SCH ×2 (09:00→21:54)
[2019-05-12] MEDS: SENNOSIDES 8.6 MG TABLET GT SCH ×2 (09:38→16:52)
[2019-05-12] MEDS: DOCUSATE SODIUM LIQ 100 MG/10 ML UDC GT SCH (09:38)
[2019-05-12] MEDS: ACIDOPHILUS/BULGARICUS 1 EACH TAB.CHEW GT SCH ×2 (09:38→16:52)
[2019-05-12] MEDS: BENZTROPINE MESYLATE (1 MG) 1 MG TABLET GT SCH (09:43)
[2019-05-12] MEDS: ATORVASTATIN 40 MG TABLET GT SCH (09:47)
[2019-05-12] MEDS: FUROSEMIDE 20 MG TABLET GT SCH (09:47)
[2019-05-12] MEDS: AMIODARONE HCL 200 MG TABLET GT SCH (09:47)
[2019-05-12] MEDS: PRAMIPEXOLE DI-HCL 0.25 MG TABLET GT SCH ×2 (09:48→16:55)
[2019-05-12] MEDS: CLOPIDOGREL BISULFATE 75 MG TABLET GT SCH (09:48)
[2019-05-12] MEDS: MULTIVITAMINS,THERAGRAN 1 UDTAB TABLET GT SCH (09:50)
[2019-05-12] MEDS: CHLORHEXIDINE GLUCONATE 15 ML UDC MM SCH ×2 (09:50→16:52)
[2019-05-12] MEDS: AMANTADINE SUSP 50 MG/5 ML UDC GT SCH (09:50)
[2019-05-12] MEDS: VITAL AF 1.2 1,000 ML BOTTLE GT PRN (10:42)
[2019-05-12 19:46] VITALS: BP 111/56
[2019-05-13] MEDS: ALBUTEROL FS 2.5 MG/3 ML VIAL.NEB NEB SCH ×4 (01:45→20:03)
[2019-05-13] MEDS: IPRATROPIUM NEB FS 0.5 MG/2.5 ML AMPUL.NEB NEB SCH ×4 (01:45→20:03)
[2019-05-13] MEDS: CARBIDOPA/LEVODOPA 25/100 MG 1 UDTAB GT SCH ×8 (01:58→21:34)
[2019-05-13] MEDS: ENTACAPONE 200 MG TABLET GT SCH ×8 (01:58→21:34)
[2019-05-13] MEDS: PANTOPRAZOLE 40 MG/PACK PACK GT SCH (05:16)
[2019-05-13] MEDS: LEVOTHYROXINE SODIUM 75 MCG TABLET GT SCH (05:16)
[2019-05-13] MEDS: VITAL AF 1.2 1,000 ML BOTTLE GT PRN (07:08)
[2019-05-13 07:34] VITALS: BP 120/58
[2019-05-13] MEDS: DOCUSATE SODIUM LIQ 100 MG/10 ML UDC GT SCH (08:47)
[2019-05-13] MEDS: BENZTROPINE MESYLATE (1 MG) 1 MG TABLET GT SCH (08:47)
[2019-05-13] MEDS: AMIODARONE HCL 200 MG TABLET GT SCH (08:48)
[2019-05-13] MEDS: CHLORHEXIDINE GLUCONATE 15 ML UDC MM SCH ×2 (08:49→17:18)
[2019-05-13] MEDS: VITAMINS A AND D 56.7 GM TUBE TP SCH ×2 (08:49→21:34)
[2019-05-13] MEDS: CLOPIDOGREL BISULFATE 75 MG TABLET GT SCH (08:49)
[2019-05-13] MEDS: SENNOSIDES 8.6 MG TABLET GT SCH ×2 (08:49→17:18)
[2019-05-13] MEDS: MULTIVITAMINS,THERAGRAN 1 UDTAB TABLET GT SCH (08:49)
[2019-05-13] MEDS: ATORVASTATIN 40 MG TABLET GT SCH (08:49)
[2019-05-13] MEDS: Z GUARD REMEDY 4 OZ OINT TP SCH ×3 (08:49→21:34)
[2019-05-13] MEDS: ACIDOPHILUS/BULGARICUS 1 EACH TAB.CHEW GT SCH ×2 (08:49→17:11)
[2019-05-13] MEDS: FUROSEMIDE 20 MG TABLET GT SCH (08:49)
[2019-05-13] MEDS: PRAMIPEXOLE DI-HCL 0.25 MG TABLET GT SCH ×2 (08:49→17:18)
[2019-05-13] MEDS: AMANTADINE SUSP 50 MG/5 ML UDC GT SCH (08:49)
[2019-05-13] MEDS: HYDROGEN PEROXIDE 480 ML BOTTLE TP SCH ×2 (09:07→21:21)
[2019-05-13 20:26] VITALS: BP 131/78
[2019-05-14] MEDS: IPRATROPIUM NEB FS 0.5 MG/2.5 ML AMPUL.NEB NEB SCH ×4 (01:41→19:35)
[2019-05-14] MEDS: ALBUTEROL FS 2.5 MG/3 ML VIAL.NEB NEB SCH ×4 (01:41→19:35)
[2019-05-14] MEDS: ENTACAPONE 200 MG TABLET GT SCH ×8 (02:54→21:17)
[2019-05-14] MEDS: CARBIDOPA/LEVODOPA 25/100 MG 1 UDTAB GT SCH ×8 (02:54→21:17)
[2019-05-14] MEDS: PANTOPRAZOLE 40 MG/PACK PACK GT SCH (06:12)
[2019-05-14] MEDS: LEVOTHYROXINE SODIUM 75 MCG TABLET GT SCH (06:13)
[2019-05-14 07:42] VITALS: BP 130/69
[2019-05-14] MEDS: ATORVASTATIN 40 MG TABLET GT SCH (09:00)
[2019-05-14] MEDS: MULTIVITAMINS,THERAGRAN 1 UDTAB TABLET GT SCH (09:00)
[2019-05-14] MEDS: SENNOSIDES 8.6 MG TABLET GT SCH ×2 (09:00→16:52)
[2019-05-14] MEDS: DOCUSATE SODIUM LIQ 100 MG/10 ML UDC GT SCH (09:00)
[2019-05-14] MEDS: Z GUARD REMEDY 4 OZ OINT TP SCH ×2 (09:00→21:17)
[2019-05-14] MEDS: CLOPIDOGREL BISULFATE 75 MG TABLET GT SCH (09:00)
[2019-05-14] MEDS: FUROSEMIDE 20 MG TABLET GT SCH (09:00)
[2019-05-14] MEDS: AMIODARONE HCL 200 MG TABLET GT SCH (09:00)
[2019-05-14] MEDS: CHLORHEXIDINE GLUCONATE 15 ML UDC MM SCH ×2 (09:00→16:52)
[2019-05-14] MEDS: BENZTROPINE MESYLATE (1 MG) 1 MG TABLET GT SCH (09:00)
[2019-05-14] MEDS: VITAMINS A AND D 56.7 GM TUBE TP SCH ×2 (09:00→21:17)
[2019-05-14] MEDS: PRAMIPEXOLE DI-HCL 0.25 MG TABLET GT SCH ×2 (09:00→16:52)
[2019-05-14] MEDS: HYDROGEN PEROXIDE 480 ML BOTTLE TP SCH ×2 (09:00→21:00)
[2019-05-14] MEDS: ACIDOPHILUS/BULGARICUS 1 EACH TAB.CHEW GT SCH ×2 (09:00→16:32)
[2019-05-14] MEDS: AMANTADINE SUSP 50 MG/5 ML UDC GT SCH (09:00)
[2019-05-14 19:51] VITALS: BP 135/63
[2019-05-15] MEDS: IPRATROPIUM NEB FS 0.5 MG/2.5 ML AMPUL.NEB NEB SCH ×4 (01:27→20:16)
[2019-05-15] MEDS: ALBUTEROL FS 2.5 MG/3 ML VIAL.NEB NEB SCH ×4 (01:27→20:16)
[2019-05-15] MEDS: ENTACAPONE 200 MG TABLET GT SCH ×8 (02:49→21:11)
[2019-05-15] MEDS: CARBIDOPA/LEVODOPA 25/100 MG 1 UDTAB GT SCH ×8 (02:50→21:11)
[2019-05-15] MEDS: LEVOTHYROXINE SODIUM 75 MCG TABLET GT SCH (05:50)
[2019-05-15] MEDS: PANTOPRAZOLE 40 MG/PACK PACK GT SCH (05:50)
[2019-05-15 06:33] LABS: BASOPHILS % (AUTO) 0.4 % (0.0-2.0); EOSINOPHILS % (AUTO) 0.7 % (0.0-6.0); HEMATOCRIT 36 % (33-45); HEMOGLOBIN 12.2 g/dL (11.5-14.8); LYMPHOCYTES # (AUTO) 1.6 /CMM (0.8-4.8); LYMPHOCYTES % (AUTO) 19.2 % (20.0-44.0); MEAN CORPUSCULAR HGB CONC 34 g/dl (31.0-36.0); MEAN CORPUSCULAR VOLUME 93 fL (82-100); MONOCYTES # (AUTO) 0.4 /CMM (0.1-1.30); MONOCYTES % (AUTO) 4.7 % (2.0-12.0); NEUTROPHILS # (AUTO) 6.2 /CMM (1.8-8.9); PLATELET COUNT (AUTO) 324 /CMM (150-450); RED BLOOD CELL COUNT(AUTO) 3.86 MIL/uL (4.0-5.2); WHITE BLOOD COUNT (AUTO) 8.3 K/uL (4.3-11.0)
[2019-05-15 06:37] LABS: CARBON DIOXIDE 32 mmol/L (21-32); CHLORIDE 103 mmol/L (98-107); CREATININE 0.5 mg/dL (0.6-1.3); GLUCOSE 120 mg/dL (74-106); MAGNESIUM 1.8 mg/dL (1.8-2.4); PHOSPHORUS 3.4 mg/dL (2.5-4.9); POTASSIUM 3.8 mmol/L (3.5-5.1); SODIUM SERUM 142 mmol/L (136-145); UREA NITROGEN, BLOOD 24 mg/dL (7-18)
[2019-05-15] MEDS: HYDROGEN PEROXIDE 480 ML BOTTLE TP SCH ×2 (07:22→20:16)
[2019-05-15 08:00] VITALS: BP 99/47
[2019-05-15] MEDS: CHLORHEXIDINE GLUCONATE 15 ML UDC MM SCH ×2 (09:00→17:00)
[2019-05-15] MEDS: Z GUARD REMEDY 4 OZ OINT TP SCH ×2 (09:00→21:11)
[2019-05-15] MEDS: CLOPIDOGREL BISULFATE 75 MG TABLET GT SCH (09:00)
[2019-05-15] MEDS: VITAMINS A AND D 56.7 GM TUBE TP SCH ×2 (09:00→21:11)
[2019-05-15] MEDS: SENNOSIDES 8.6 MG TABLET GT SCH ×2 (09:00→17:00)
[2019-05-15] MEDS: AMIODARONE HCL 200 MG TABLET GT SCH (09:00)
[2019-05-15] MEDS: BENZTROPINE MESYLATE (1 MG) 1 MG TABLET GT SCH (09:00)
[2019-05-15] MEDS: AMANTADINE SUSP 50 MG/5 ML UDC GT SCH (09:00)
[2019-05-15] MEDS: DOCUSATE SODIUM LIQ 100 MG/10 ML UDC GT SCH (09:00)
[2019-05-15] MEDS: ACIDOPHILUS/BULGARICUS 1 EACH TAB.CHEW GT SCH ×2 (09:00→17:00)
[2019-05-15] MEDS: MULTIVITAMINS,THERAGRAN 1 UDTAB TABLET GT SCH (09:00)
[2019-05-15] MEDS: ATORVASTATIN 40 MG TABLET GT SCH (09:00)
[2019-05-15] MEDS: FUROSEMIDE 20 MG TABLET GT SCH (09:00)
[2019-05-15] MEDS: PRAMIPEXOLE DI-HCL 0.25 MG TABLET GT SCH ×2 (09:00→17:00)
[2019-05-15 20:58] VITALS: BP 133/61
[2019-05-16] MEDS: IPRATROPIUM NEB FS 0.5 MG/2.5 ML AMPUL.NEB NEB SCH ×4 (01:54→19:57)
[2019-05-16] MEDS: ALBUTEROL FS 2.5 MG/3 ML VIAL.NEB NEB SCH ×4 (01:54→19:57)
[2019-05-16] MEDS: CARBIDOPA/LEVODOPA 25/100 MG 1 UDTAB GT SCH ×8 (02:30→21:36)
[2019-05-16] MEDS: ENTACAPONE 200 MG TABLET GT SCH ×8 (02:30→21:35)
[2019-05-16] MEDS: PANTOPRAZOLE 40 MG/PACK PACK GT SCH (06:04)
[2019-05-16] MEDS: LEVOTHYROXINE SODIUM 75 MCG TABLET GT SCH (06:04)
[2019-05-16] MEDS: HYDROGEN PEROXIDE 480 ML BOTTLE TP SCH ×2 (08:31→19:57)
[2019-05-16] MEDS: BENZTROPINE MESYLATE (1 MG) 1 MG TABLET GT SCH (08:38)
[2019-05-16] MEDS: DOCUSATE SODIUM LIQ 100 MG/10 ML UDC GT SCH (08:38)
[2019-05-16] MEDS: CLOPIDOGREL BISULFATE 75 MG TABLET GT SCH (08:39)
[2019-05-16] MEDS: ACIDOPHILUS/BULGARICUS 1 EACH TAB.CHEW GT SCH ×2 (08:39→16:50)
[2019-05-16] MEDS: FUROSEMIDE 20 MG TABLET GT SCH (08:39)
[2019-05-16] MEDS: AMIODARONE HCL 200 MG TABLET GT SCH (08:39)
[2019-05-16] MEDS: ATORVASTATIN 40 MG TABLET GT SCH (08:39)
[2019-05-16] MEDS: PRAMIPEXOLE DI-HCL 0.25 MG TABLET GT SCH ×2 (08:39→16:50)
[2019-05-16] MEDS: Z GUARD REMEDY 4 OZ OINT TP SCH ×2 (08:40→21:35)
[2019-05-16] MEDS: AMANTADINE SUSP 50 MG/5 ML UDC GT SCH (08:40)
[2019-05-16] MEDS: CHLORHEXIDINE GLUCONATE 15 ML UDC MM SCH ×2 (08:40→16:50)
[2019-05-16] MEDS: SENNOSIDES 8.6 MG TABLET GT SCH ×2 (08:40→16:50)
[2019-05-16] MEDS: MULTIVITAMINS,THERAGRAN 1 UDTAB TABLET GT SCH (08:40)
[2019-05-16] MEDS: VITAMINS A AND D 56.7 GM TUBE TP SCH ×2 (08:40→21:35)
[2019-05-16 10:18] VITALS: BP 100/46
[2019-05-16] MEDS: VITAL AF 1.2 1,000 ML BOTTLE GT PRN (16:50)
[2019-05-17] MEDS: ALBUTEROL FS 2.5 MG/3 ML VIAL.NEB NEB SCH ×4 (02:19→19:57)
[2019-05-17] MEDS: IPRATROPIUM NEB FS 0.5 MG/2.5 ML AMPUL.NEB NEB SCH ×4 (02:19→19:57)
[2019-05-17] MEDS: CARBIDOPA/LEVODOPA 25/100 MG 1 UDTAB GT SCH ×8 (03:17→21:13)
[2019-05-17] MEDS: ENTACAPONE 200 MG TABLET GT SCH ×8 (03:17→21:13)
[2019-05-17] MEDS: PANTOPRAZOLE 40 MG/PACK PACK GT SCH (05:43)
[2019-05-17] MEDS: LEVOTHYROXINE SODIUM 75 MCG TABLET GT SCH (05:43)
[2019-05-17 07:44] VITALS: BP 114/67
[2019-05-17] MEDS: CHLORHEXIDINE GLUCONATE 15 ML UDC MM SCH ×2 (09:00→16:57)
[2019-05-17] MEDS: HYDROGEN PEROXIDE 480 ML BOTTLE TP SCH ×2 (09:05→21:22)
[2019-05-17] MEDS: BENZTROPINE MESYLATE (1 MG) 1 MG TABLET GT SCH (09:55)
[2019-05-17] MEDS: DOCUSATE SODIUM LIQ 100 MG/10 ML UDC GT SCH (09:55)
[2019-05-17] MEDS: AMIODARONE HCL 200 MG TABLET GT SCH (09:56)
[2019-05-17] MEDS: PRAMIPEXOLE DI-HCL 0.25 MG TABLET GT SCH ×2 (09:56→16:57)
[2019-05-17] MEDS: CLOPIDOGREL BISULFATE 75 MG TABLET GT SCH (09:56)
[2019-05-17] MEDS: AMANTADINE SUSP 50 MG/5 ML UDC GT SCH (09:56)
[2019-05-17] MEDS: Z GUARD REMEDY 4 OZ OINT TP SCH ×2 (09:56→21:13)
[2019-05-17] MEDS: VITAMINS A AND D 56.7 GM TUBE TP SCH ×2 (09:56→21:13)
[2019-05-17] MEDS: MULTIVITAMINS,THERAGRAN 1 UDTAB TABLET GT SCH (09:56)
[2019-05-17] MEDS: ATORVASTATIN 40 MG TABLET GT SCH (09:56)
[2019-05-17] MEDS: ACIDOPHILUS/BULGARICUS 1 EACH TAB.CHEW GT SCH ×2 (09:56→16:57)
[2019-05-17] MEDS: SENNOSIDES 8.6 MG TABLET GT SCH ×2 (09:56→16:57)
[2019-05-17] MEDS: FUROSEMIDE 20 MG TABLET GT SCH (09:56)
[2019-05-17] MEDS: VITAL AF 1.2 1,000 ML BOTTLE GT PRN (13:17)
[2019-05-17 20:17] VITALS: BP 135/79
[2019-05-18] MEDS: ALBUTEROL FS 2.5 MG/3 ML VIAL.NEB NEB SCH ×4 (02:00→19:56)
[2019-05-18] MEDS: IPRATROPIUM NEB FS 0.5 MG/2.5 ML AMPUL.NEB NEB SCH ×4 (02:00→19:56)
[2019-05-18] MEDS: ENTACAPONE 200 MG TABLET GT SCH ×8 (02:30→21:23)
[2019-05-18] MEDS: CARBIDOPA/LEVODOPA 25/100 MG 1 UDTAB GT SCH ×8 (02:30→21:23)
[2019-05-18] MEDS: PANTOPRAZOLE 40 MG/PACK PACK GT SCH (05:22)
[2019-05-18] MEDS: LEVOTHYROXINE SODIUM 75 MCG TABLET GT SCH (05:22)
[2019-05-18 07:40] VITALS: BP 118/57
[2019-05-18] MEDS: HYDROGEN PEROXIDE 480 ML BOTTLE TP SCH ×2 (08:10→19:56)
[2019-05-18] MEDS: DOCUSATE SODIUM LIQ 100 MG/10 ML UDC GT SCH (09:17)
[2019-05-18] MEDS: BENZTROPINE MESYLATE (1 MG) 1 MG TABLET GT SCH (09:17)
[2019-05-18] MEDS: AMIODARONE HCL 200 MG TABLET GT SCH (09:18)
[2019-05-18] MEDS: ATORVASTATIN 40 MG TABLET GT SCH (09:19)
[2019-05-18] MEDS: Z GUARD REMEDY 4 OZ OINT TP SCH ×2 (09:19→21:23)
[2019-05-18] MEDS: MULTIVITAMINS,THERAGRAN 1 UDTAB TABLET GT SCH (09:19)
[2019-05-18] MEDS: FUROSEMIDE 20 MG TABLET GT SCH (09:19)
[2019-05-18] MEDS: VITAMINS A AND D 56.7 GM TUBE TP SCH ×2 (09:19→21:23)
[2019-05-18] MEDS: PRAMIPEXOLE DI-HCL 0.25 MG TABLET GT SCH ×2 (09:19→16:43)
[2019-05-18] MEDS: ACIDOPHILUS/BULGARICUS 1 EACH TAB.CHEW GT SCH ×2 (09:19→16:43)
[2019-05-18] MEDS: VITAL AF 1.2 1,000 ML BOTTLE GT PRN (09:19)
[2019-05-18] MEDS: CHLORHEXIDINE GLUCONATE 15 ML UDC MM SCH ×2 (09:19→16:43)
[2019-05-18] MEDS: CLOPIDOGREL BISULFATE 75 MG TABLET GT SCH (09:19)
[2019-05-18] MEDS: AMANTADINE SUSP 50 MG/5 ML UDC GT SCH (09:19)
[2019-05-18] MEDS: SENNOSIDES 8.6 MG TABLET GT SCH ×2 (09:19→16:43)
[2019-05-18 20:59] VITALS: BP 150/73
[2019-05-19] MEDS: ALBUTEROL FS 2.5 MG/3 ML VIAL.NEB NEB SCH ×4 (02:05→19:53)
[2019-05-19] MEDS: IPRATROPIUM NEB FS 0.5 MG/2.5 ML AMPUL.NEB NEB SCH ×4 (02:05→19:53)
[2019-05-19] MEDS: ENTACAPONE 200 MG TABLET GT SCH ×8 (02:40→21:35)
[2019-05-19] MEDS: CARBIDOPA/LEVODOPA 25/100 MG 1 UDTAB GT SCH ×8 (02:40→21:36)
[2019-05-19] MEDS: PANTOPRAZOLE 40 MG/PACK PACK GT SCH (06:16)
[2019-05-19] MEDS: LEVOTHYROXINE SODIUM 75 MCG TABLET GT SCH (06:16)
[2019-05-19] MEDS: VITAL AF 1.2 1,000 ML BOTTLE GT PRN (06:21)
[2019-05-19 08:02] VITALS: BP 111/57
[2019-05-19] MEDS: HYDROGEN PEROXIDE 480 ML BOTTLE TP SCH ×2 (09:00→19:53)
[2019-05-19] MEDS: VITAMINS A AND D 56.7 GM TUBE TP SCH ×2 (09:00→21:35)
[2019-05-19] MEDS: MULTIVITAMINS,THERAGRAN 1 UDTAB TABLET GT SCH (09:00)
[2019-05-19] MEDS: DOCUSATE SODIUM LIQ 100 MG/10 ML UDC GT SCH (09:24)
[2019-05-19] MEDS: AMIODARONE HCL 200 MG TABLET GT SCH (09:24)
[2019-05-19] MEDS: BENZTROPINE MESYLATE (1 MG) 1 MG TABLET GT SCH (09:24)
[2019-05-19] MEDS: ACIDOPHILUS/BULGARICUS 1 EACH TAB.CHEW GT SCH ×2 (09:24→16:11)
[2019-05-19] MEDS: ATORVASTATIN 40 MG TABLET GT SCH (09:24)
[2019-05-19] MEDS: FUROSEMIDE 20 MG TABLET GT SCH (09:24)
[2019-05-19] MEDS: CLOPIDOGREL BISULFATE 75 MG TABLET GT SCH (09:25)
[2019-05-19] MEDS: PRAMIPEXOLE DI-HCL 0.25 MG TABLET GT SCH ×2 (09:25→16:11)
[2019-05-19] MEDS: SENNOSIDES 8.6 MG TABLET GT SCH ×2 (09:25→16:11)
[2019-05-19] MEDS: Z GUARD REMEDY 4 OZ OINT TP SCH ×2 (09:26→21:35)
[2019-05-19] MEDS: AMANTADINE SUSP 50 MG/5 ML UDC GT SCH (09:26)
[2019-05-19] MEDS: CHLORHEXIDINE GLUCONATE 15 ML UDC MM SCH ×2 (09:26→16:11)
[2019-05-19 23:56] VITALS: BP 119/59
[2019-05-20] MEDS: IPRATROPIUM NEB FS 0.5 MG/2.5 ML AMPUL.NEB NEB SCH ×4 (01:34→20:18)
[2019-05-20] MEDS: ALBUTEROL FS 2.5 MG/3 ML VIAL.NEB NEB SCH ×4 (01:34→20:18)
[2019-05-20] MEDS: ENTACAPONE 200 MG TABLET GT SCH ×8 (03:30→21:29)
[2019-05-20] MEDS: CARBIDOPA/LEVODOPA 25/100 MG 1 UDTAB GT SCH ×8 (03:30→21:29)
[2019-05-20] MEDS: LEVOTHYROXINE SODIUM 75 MCG TABLET GT SCH (06:08)
[2019-05-20] MEDS: PANTOPRAZOLE 40 MG/PACK PACK GT SCH (06:08)
[2019-05-20] MEDS: VITAL AF 1.2 1,000 ML BOTTLE GT PRN (06:19)
[2019-05-20 07:51] VITALS: BP 122/69
[2019-05-20] MEDS: HYDROGEN PEROXIDE 480 ML BOTTLE TP SCH ×2 (08:01→21:35)
[2019-05-20] MEDS: DOCUSATE SODIUM LIQ 100 MG/10 ML UDC GT SCH (08:49)
[2019-05-20] MEDS: BENZTROPINE MESYLATE (1 MG) 1 MG TABLET GT SCH (08:49)
[2019-05-20] MEDS: AMIODARONE HCL 200 MG TABLET GT SCH (08:49)
[2019-05-20] MEDS: CHLORHEXIDINE GLUCONATE 15 ML UDC MM SCH ×2 (08:50→17:26)
[2019-05-20] MEDS: CLOPIDOGREL BISULFATE 75 MG TABLET GT SCH (08:50)
[2019-05-20] MEDS: AMANTADINE SUSP 50 MG/5 ML UDC GT SCH (08:50)
[2019-05-20] MEDS: ACIDOPHILUS/BULGARICUS 1 EACH TAB.CHEW GT SCH ×2 (08:50→17:26)
[2019-05-20] MEDS: MULTIVITAMINS,THERAGRAN 1 UDTAB TABLET GT SCH (08:50)
[2019-05-20] MEDS: FUROSEMIDE 20 MG TABLET GT SCH (08:50)
[2019-05-20] MEDS: ATORVASTATIN 40 MG TABLET GT SCH (08:50)
[2019-05-20] MEDS: VITAMINS A AND D 56.7 GM TUBE TP SCH ×2 (08:50→21:29)
[2019-05-20] MEDS: SENNOSIDES 8.6 MG TABLET GT SCH ×2 (08:50→17:26)
[2019-05-20] MEDS: PRAMIPEXOLE DI-HCL 0.25 MG TABLET GT SCH ×2 (08:50→17:26)
[2019-05-20] MEDS: Z GUARD REMEDY 4 OZ OINT TP SCH ×2 (08:50→21:29)
[2019-05-20 20:56] VITALS: BP 106/50
[2019-05-21] MEDS: ALBUTEROL FS 2.5 MG/3 ML VIAL.NEB NEB SCH ×4 (02:07→19:23)
[2019-05-21] MEDS: IPRATROPIUM NEB FS 0.5 MG/2.5 ML AMPUL.NEB NEB SCH ×4 (02:07→19:23)
[2019-05-21] MEDS: CARBIDOPA/LEVODOPA 25/100 MG 1 UDTAB GT SCH ×8 (03:30→21:58)
[2019-05-21] MEDS: ENTACAPONE 200 MG TABLET GT SCH ×8 (03:30→21:58)
[2019-05-21] MEDS: PANTOPRAZOLE 40 MG/PACK PACK GT SCH (05:54)
[2019-05-21] MEDS: LEVOTHYROXINE SODIUM 75 MCG TABLET GT SCH (05:54)
[2019-05-21 08:05] VITALS: BP 119/55
[2019-05-21] MEDS: VITAMINS A AND D 56.7 GM TUBE TP SCH ×2 (09:00→21:58)
[2019-05-21] MEDS: HYDROGEN PEROXIDE 480 ML BOTTLE TP SCH ×2 (09:22→21:00)
[2019-05-21] MEDS: BENZTROPINE MESYLATE (1 MG) 1 MG TABLET GT SCH (09:56)
[2019-05-21] MEDS: AMIODARONE HCL 200 MG TABLET GT SCH (09:56)
[2019-05-21] MEDS: DOCUSATE SODIUM LIQ 100 MG/10 ML UDC GT SCH (09:56)
[2019-05-21] MEDS: FUROSEMIDE 20 MG TABLET GT SCH (09:57)
[2019-05-21] MEDS: ATORVASTATIN 40 MG TABLET GT SCH (09:57)
[2019-05-21] MEDS: CHLORHEXIDINE GLUCONATE 15 ML UDC MM SCH ×2 (09:57→17:02)
[2019-05-21] MEDS: SENNOSIDES 8.6 MG TABLET GT SCH ×2 (09:57→17:02)
[2019-05-21] MEDS: MULTIVITAMINS,THERAGRAN 1 UDTAB TABLET GT SCH (09:57)
[2019-05-21] MEDS: CLOPIDOGREL BISULFATE 75 MG TABLET GT SCH (09:57)
[2019-05-21] MEDS: AMANTADINE SUSP 50 MG/5 ML UDC GT SCH (09:57)
[2019-05-21] MEDS: ACIDOPHILUS/BULGARICUS 1 EACH TAB.CHEW GT SCH ×2 (09:57→17:02)
[2019-05-21] MEDS: Z GUARD REMEDY 4 OZ OINT TP SCH ×2 (09:57→21:58)
[2019-05-21] MEDS: PRAMIPEXOLE DI-HCL 0.25 MG TABLET GT SCH ×2 (09:57→17:02)
[2019-05-21 20:22] VITALS: BP 130/70
[2019-05-22] MEDS: VITAL AF 1.2 1,000 ML BOTTLE GT PRN ×2 (01:07→22:52)
[2019-05-22] MEDS: ALBUTEROL FS 2.5 MG/3 ML VIAL.NEB NEB SCH ×4 (01:51→19:20)
[2019-05-22] MEDS: IPRATROPIUM NEB FS 0.5 MG/2.5 ML AMPUL.NEB NEB SCH ×4 (01:51→19:20)
[2019-05-22] MEDS: ENTACAPONE 200 MG TABLET GT SCH ×7 (03:30→21:44)
[2019-05-22] MEDS: CARBIDOPA/LEVODOPA 25/100 MG 1 UDTAB GT SCH ×7 (03:30→21:44)
[2019-05-22] MEDS: PANTOPRAZOLE 40 MG/PACK PACK GT SCH (06:08)
[2019-05-22] MEDS: LEVOTHYROXINE SODIUM 75 MCG TABLET GT SCH (06:08)
[2019-05-22] MEDS: HYDROGEN PEROXIDE 480 ML BOTTLE TP SCH ×2 (07:38→21:00)
[2019-05-22 08:01] VITALS: BP 112/49
[2019-05-22] MEDS: DOCUSATE SODIUM LIQ 100 MG/10 ML UDC GT SCH (09:21)
[2019-05-22] MEDS: BENZTROPINE MESYLATE (1 MG) 1 MG TABLET GT SCH (09:21)
[2019-05-22] MEDS: ATORVASTATIN 40 MG TABLET GT SCH (09:22)
[2019-05-22] MEDS: PRAMIPEXOLE DI-HCL 0.25 MG TABLET GT SCH ×2 (09:22→17:53)
[2019-05-22] MEDS: Z GUARD REMEDY 4 OZ OINT TP SCH ×2 (09:22→21:44)
[2019-05-22] MEDS: SENNOSIDES 8.6 MG TABLET GT SCH ×2 (09:22→17:53)
[2019-05-22] MEDS: FUROSEMIDE 20 MG TABLET GT SCH (09:22)
[2019-05-22] MEDS: AMANTADINE SUSP 50 MG/5 ML UDC GT SCH (09:22)
[2019-05-22] MEDS: VITAMINS A AND D 56.7 GM TUBE TP SCH ×2 (09:22→21:44)
[2019-05-22] MEDS: MULTIVITAMINS,THERAGRAN 1 UDTAB TABLET GT SCH (09:22)
[2019-05-22] MEDS: CHLORHEXIDINE GLUCONATE 15 ML UDC MM SCH ×2 (09:22→17:53)
[2019-05-22] MEDS: AMIODARONE HCL 200 MG TABLET GT SCH (09:22)
[2019-05-22] MEDS: ACIDOPHILUS/BULGARICUS 1 EACH TAB.CHEW GT SCH ×2 (09:22→17:53)
[2019-05-22] MEDS: CLOPIDOGREL BISULFATE 75 MG TABLET GT SCH (09:22)
[2019-05-22] MEDS: MAGNESIUM HYDROXIDE 30 ML UDC GT PRN (18:28)
[2019-05-22 20:54] VITALS: BP 117/63
[2019-05-23] MEDS: ALBUTEROL FS 2.5 MG/3 ML VIAL.NEB NEB SCH ×4 (01:26→20:16)
[2019-05-23] MEDS: IPRATROPIUM NEB FS 0.5 MG/2.5 ML AMPUL.NEB NEB SCH ×4 (01:26→20:16)
[2019-05-23] MEDS: ENTACAPONE 200 MG TABLET GT SCH ×8 (02:03→21:50)
[2019-05-23] MEDS: CARBIDOPA/LEVODOPA 25/100 MG 1 UDTAB GT SCH ×8 (02:03→21:50)
[2019-05-23] MEDS: LEVOTHYROXINE SODIUM 75 MCG TABLET GT SCH (05:48)
[2019-05-23] MEDS: PANTOPRAZOLE 40 MG/PACK PACK GT SCH (05:48)
[2019-05-23] MEDS: BISACODYL SUPP (10 MG) 10 MG/SUPP.RECT SUPP.RECT RC PRN (06:24)
[2019-05-23 08:00] VITALS: BP 101/57
[2019-05-23] MEDS: HYDROGEN PEROXIDE 480 ML BOTTLE TP SCH ×2 (08:30→20:16)
[2019-05-23] MEDS: DOCUSATE SODIUM LIQ 100 MG/10 ML UDC GT SCH (09:35)
[2019-05-23] MEDS: BENZTROPINE MESYLATE (1 MG) 1 MG TABLET GT SCH (09:35)
[2019-05-23] MEDS: ACIDOPHILUS/BULGARICUS 1 EACH TAB.CHEW GT SCH ×2 (09:36→16:47)
[2019-05-23] MEDS: FUROSEMIDE 20 MG TABLET GT SCH (09:36)
[2019-05-23] MEDS: AMIODARONE HCL 200 MG TABLET GT SCH (09:36)
[2019-05-23] MEDS: CLOPIDOGREL BISULFATE 75 MG TABLET GT SCH (09:36)
[2019-05-23] MEDS: PRAMIPEXOLE DI-HCL 0.25 MG TABLET GT SCH ×2 (09:36→16:47)
[2019-05-23] MEDS: ATORVASTATIN 40 MG TABLET GT SCH (09:36)
[2019-05-23] MEDS: SENNOSIDES 8.6 MG TABLET GT SCH ×2 (09:36→16:47)
[2019-05-23] MEDS: AMANTADINE SUSP 50 MG/5 ML UDC GT SCH (09:37)
[2019-05-23] MEDS: MULTIVITAMINS,THERAGRAN 1 UDTAB TABLET GT SCH (09:37)
[2019-05-23] MEDS: CHLORHEXIDINE GLUCONATE 15 ML UDC MM SCH ×2 (09:38→16:50)
[2019-05-23] MEDS: VITAMINS A AND D 56.7 GM TUBE TP SCH ×2 (09:39→21:50)
[2019-05-23] MEDS: Z GUARD REMEDY 4 OZ OINT TP SCH ×2 (09:39→21:50)
[2019-05-23 20:13] VITALS: BP 104/64
[2019-05-24] MEDS: IPRATROPIUM NEB FS 0.5 MG/2.5 ML AMPUL.NEB NEB SCH ×4 (02:18→20:27)
[2019-05-24] MEDS: ALBUTEROL FS 2.5 MG/3 ML VIAL.NEB NEB SCH ×4 (02:18→20:27)
[2019-05-24] MEDS: CARBIDOPA/LEVODOPA 25/100 MG 1 UDTAB GT SCH ×8 (03:24→20:38)
[2019-05-24] MEDS: ENTACAPONE 200 MG TABLET GT SCH ×8 (03:24→20:38)
[2019-05-24] MEDS: LEVOTHYROXINE SODIUM 75 MCG TABLET GT SCH (06:16)
[2019-05-24] MEDS: PANTOPRAZOLE 40 MG/PACK PACK GT SCH (06:16)
[2019-05-24 07:54] VITALS: BP 119/61
[2019-05-24] MEDS: FUROSEMIDE 20 MG TABLET GT SCH (09:00)
[2019-05-24] MEDS: PRAMIPEXOLE DI-HCL 0.25 MG TABLET GT SCH ×2 (09:00→16:48)
[2019-05-24] MEDS: MULTIVITAMINS,THERAGRAN 1 UDTAB TABLET GT SCH (09:00)
[2019-05-24] MEDS: AMANTADINE SUSP 50 MG/5 ML UDC GT SCH (09:00)
[2019-05-24] MEDS: BENZTROPINE MESYLATE (1 MG) 1 MG TABLET GT SCH (09:00)
[2019-05-24] MEDS: ACIDOPHILUS/BULGARICUS 1 EACH TAB.CHEW GT SCH ×2 (09:00→16:48)
[2019-05-24] MEDS: CLOPIDOGREL BISULFATE 75 MG TABLET GT SCH (09:00)
[2019-05-24] MEDS: SENNOSIDES 8.6 MG TABLET GT SCH ×2 (09:00→16:48)
[2019-05-24] MEDS: AMIODARONE HCL 200 MG TABLET GT SCH (09:00)
[2019-05-24] MEDS: CHLORHEXIDINE GLUCONATE 15 ML UDC MM SCH ×2 (09:00→16:48)
[2019-05-24] MEDS: ATORVASTATIN 40 MG TABLET GT SCH (09:00)
[2019-05-24] MEDS: DOCUSATE SODIUM LIQ 100 MG/10 ML UDC GT SCH (09:00)
[2019-05-24] MEDS: Z GUARD REMEDY 4 OZ OINT TP SCH ×2 (09:00→20:39)
[2019-05-24] MEDS: VITAMINS A AND D 56.7 GM TUBE TP SCH ×2 (09:00→20:39)
[2019-05-24] MEDS: HYDROGEN PEROXIDE 480 ML BOTTLE TP SCH ×2 (12:48→20:27)
[2019-05-24] MEDS: VITAL AF 1.2 1,000 ML BOTTLE GT PRN (16:48)
[2019-05-25] MEDS: IPRATROPIUM NEB FS 0.5 MG/2.5 ML AMPUL.NEB NEB SCH ×4 (02:21→19:46)
[2019-05-25] MEDS: ALBUTEROL FS 2.5 MG/3 ML VIAL.NEB NEB SCH ×4 (02:21→19:46)
[2019-05-25] MEDS: ENTACAPONE 200 MG TABLET GT SCH ×8 (02:30→21:20)
[2019-05-25] MEDS: CARBIDOPA/LEVODOPA 25/100 MG 1 UDTAB GT SCH ×8 (02:30→21:20)
[2019-05-25] MEDS: PANTOPRAZOLE 40 MG/PACK PACK GT SCH (06:15)
[2019-05-25] MEDS: LEVOTHYROXINE SODIUM 75 MCG TABLET GT SCH (06:15)
[2019-05-25 07:44] VITALS: BP 131/78
[2019-05-25] MEDS: HYDROGEN PEROXIDE 480 ML BOTTLE TP SCH ×2 (09:00→21:28)
[2019-05-25] MEDS: DOCUSATE SODIUM LIQ 100 MG/10 ML UDC GT SCH (09:40)
[2019-05-25] MEDS: ACIDOPHILUS/BULGARICUS 1 EACH TAB.CHEW GT SCH ×2 (09:40→16:52)
[2019-05-25] MEDS: AMIODARONE HCL 200 MG TABLET GT SCH (09:40)
[2019-05-25] MEDS: AMANTADINE SUSP 50 MG/5 ML UDC GT SCH (09:40)
[2019-05-25] MEDS: FUROSEMIDE 20 MG TABLET GT SCH (09:40)
[2019-05-25] MEDS: MULTIVITAMINS,THERAGRAN 1 UDTAB TABLET GT SCH (09:40)
[2019-05-25] MEDS: CLOPIDOGREL BISULFATE 75 MG TABLET GT SCH (09:40)
[2019-05-25] MEDS: PRAMIPEXOLE DI-HCL 0.25 MG TABLET GT SCH ×2 (09:40→16:53)
[2019-05-25] MEDS: SENNOSIDES 8.6 MG TABLET GT SCH ×2 (09:40→16:53)
[2019-05-25] MEDS: ATORVASTATIN 40 MG TABLET GT SCH (09:40)
[2019-05-25] MEDS: BENZTROPINE MESYLATE (1 MG) 1 MG TABLET GT SCH (09:40)
[2019-05-25] MEDS: VITAMINS A AND D 56.7 GM TUBE TP SCH ×2 (09:42→21:20)
[2019-05-25] MEDS: Z GUARD REMEDY 4 OZ OINT TP SCH ×2 (09:42→21:20)
[2019-05-25] MEDS: CHLORHEXIDINE GLUCONATE 15 ML UDC MM SCH ×2 (09:42→16:53)
[2019-05-25] MEDS: VITAL AF 1.2 1,000 ML BOTTLE GT PRN (12:00)
[2019-05-25 20:12] VITALS: BP 128/64
[2019-05-25] MEDS: MAGNESIUM HYDROXIDE 30 ML UDC GT PRN (23:00)
[2019-05-26] MEDS: IPRATROPIUM NEB FS 0.5 MG/2.5 ML AMPUL.NEB NEB SCH ×3 (01:53→19:09)
[2019-05-26] MEDS: ALBUTEROL FS 2.5 MG/3 ML VIAL.NEB NEB SCH ×3 (01:53→19:10)
[2019-05-26] MEDS: CARBIDOPA/LEVODOPA 25/100 MG 1 UDTAB GT SCH ×8 (02:30→21:36)
[2019-05-26] MEDS: ENTACAPONE 200 MG TABLET GT SCH ×8 (02:30→21:36)
[2019-05-26] MEDS: PANTOPRAZOLE 40 MG/PACK PACK GT SCH (06:06)
[2019-05-26] MEDS: LEVOTHYROXINE SODIUM 75 MCG TABLET GT SCH (06:06)
[2019-05-26] MEDS: VITAL AF 1.2 1,000 ML BOTTLE GT PRN (06:26)
[2019-05-26] MEDS: BISACODYL SUPP (10 MG) 10 MG/SUPP.RECT SUPP.RECT RC PRN (06:40)
[2019-05-26 07:46] VITALS: BP 130/73
[2019-05-26] MEDS: HYDROGEN PEROXIDE 480 ML BOTTLE TP SCH ×2 (08:18→21:00)
[2019-05-26] MEDS: DOCUSATE SODIUM LIQ 100 MG/10 ML UDC GT SCH (09:55)
[2019-05-26] MEDS: BENZTROPINE MESYLATE (1 MG) 1 MG TABLET GT SCH (09:55)
[2019-05-26] MEDS: PRAMIPEXOLE DI-HCL 0.25 MG TABLET GT SCH ×2 (09:56→16:31)
[2019-05-26] MEDS: VITAMINS A AND D 56.7 GM TUBE TP SCH ×2 (09:56→21:36)
[2019-05-26] MEDS: MULTIVITAMINS,THERAGRAN 1 UDTAB TABLET GT SCH (09:56)
[2019-05-26] MEDS: AMIODARONE HCL 200 MG TABLET GT SCH (09:56)
[2019-05-26] MEDS: ATORVASTATIN 40 MG TABLET GT SCH (09:56)
[2019-05-26] MEDS: AMANTADINE SUSP 50 MG/5 ML UDC GT SCH (09:56)
[2019-05-26] MEDS: FUROSEMIDE 20 MG TABLET GT SCH (09:56)
[2019-05-26] MEDS: CLOPIDOGREL BISULFATE 75 MG TABLET GT SCH (09:56)
[2019-05-26] MEDS: Z GUARD REMEDY 4 OZ OINT TP SCH ×2 (09:56→21:36)
[2019-05-26] MEDS: SENNOSIDES 8.6 MG TABLET GT SCH ×2 (09:56→16:31)
[2019-05-26] MEDS: ACIDOPHILUS/BULGARICUS 1 EACH TAB.CHEW GT SCH ×2 (09:56→16:31)
[2019-05-26] MEDS: CHLORHEXIDINE GLUCONATE 15 ML UDC MM SCH ×2 (09:56→16:31)
[2019-05-26 20:23] VITALS: BP 109/57
[2019-05-27] MEDS: VITAL AF 1.2 1,000 ML BOTTLE GT PRN (00:03)
[2019-05-27] MEDS: ALBUTEROL FS 2.5 MG/3 ML VIAL.NEB NEB SCH ×4 (00:39→19:58)
[2019-05-27] MEDS: IPRATROPIUM NEB FS 0.5 MG/2.5 ML AMPUL.NEB NEB SCH ×4 (00:39→19:58)
[2019-05-27] MEDS: ENTACAPONE 200 MG TABLET GT SCH ×8 (02:30→20:50)
[2019-05-27] MEDS: CARBIDOPA/LEVODOPA 25/100 MG 1 UDTAB GT SCH ×8 (02:30→20:50)
[2019-05-27] MEDS: LEVOTHYROXINE SODIUM 75 MCG TABLET GT SCH (06:21)
[2019-05-27] MEDS: PANTOPRAZOLE 40 MG/PACK PACK GT SCH (06:21)
[2019-05-27 07:43] VITALS: BP 102/73
[2019-05-27] MEDS: HYDROGEN PEROXIDE 480 ML BOTTLE TP SCH ×2 (09:49→21:07)
[2019-05-27] MEDS: LACTULOSE 10 G/15 ML UDC (PYXIS) GT SCH (09:49)
[2019-05-27] MEDS: DOCUSATE SODIUM LIQ 100 MG/10 ML UDC GT SCH (09:49)
[2019-05-27] MEDS: BENZTROPINE MESYLATE (1 MG) 1 MG TABLET GT SCH (09:49)
[2019-05-27] MEDS: MULTIVITAMINS,THERAGRAN 1 UDTAB TABLET GT SCH (09:50)
[2019-05-27] MEDS: AMIODARONE HCL 200 MG TABLET GT SCH (09:50)
[2019-05-27] MEDS: SENNOSIDES 8.6 MG TABLET GT SCH ×2 (09:50→17:06)
[2019-05-27] MEDS: Z GUARD REMEDY 4 OZ OINT TP SCH ×2 (09:50→20:50)
[2019-05-27] MEDS: PRAMIPEXOLE DI-HCL 0.25 MG TABLET GT SCH ×2 (09:50→17:05)
[2019-05-27] MEDS: CLOPIDOGREL BISULFATE 75 MG TABLET GT SCH (09:50)
[2019-05-27] MEDS: AMANTADINE SUSP 50 MG/5 ML UDC GT SCH (09:50)
[2019-05-27] MEDS: ACIDOPHILUS/BULGARICUS 1 EACH TAB.CHEW GT SCH ×2 (09:50→17:05)
[2019-05-27] MEDS: ATORVASTATIN 40 MG TABLET GT SCH (09:50)
[2019-05-27] MEDS: CHLORHEXIDINE GLUCONATE 15 ML UDC MM SCH ×2 (09:50→17:06)
[2019-05-27] MEDS: FUROSEMIDE 20 MG TABLET GT SCH (09:50)
[2019-05-27] MEDS: VITAMINS A AND D 56.7 GM TUBE TP SCH ×2 (09:51→20:50)
[2019-05-27 19:56] VITALS: BP 100/51
[2019-05-28] MEDS: ALBUTEROL FS 2.5 MG/3 ML VIAL.NEB NEB SCH ×4 (01:42→19:50)
[2019-05-28] MEDS: IPRATROPIUM NEB FS 0.5 MG/2.5 ML AMPUL.NEB NEB SCH ×4 (01:42→19:50)
[2019-05-28] MEDS: ENTACAPONE 200 MG TABLET GT SCH ×8 (02:30→21:49)
[2019-05-28] MEDS: CARBIDOPA/LEVODOPA 25/100 MG 1 UDTAB GT SCH ×8 (02:30→21:49)
[2019-05-28] MEDS: LEVOTHYROXINE SODIUM 75 MCG TABLET GT SCH (05:52)
[2019-05-28] MEDS: PANTOPRAZOLE 40 MG/PACK PACK GT SCH (05:52)
[2019-05-28] MEDS: HYDROGEN PEROXIDE 480 ML BOTTLE TP SCH ×2 (07:52→21:00)
[2019-05-28 08:06] VITALS: BP 141/57
[2019-05-28] MEDS: AMIODARONE HCL 200 MG TABLET GT SCH (09:00)
[2019-05-28] MEDS: LACTULOSE 10 G/15 ML UDC (PYXIS) GT SCH (09:45)
[2019-05-28] MEDS: DOCUSATE SODIUM LIQ 100 MG/10 ML UDC GT SCH (09:45)
[2019-05-28] MEDS: BENZTROPINE MESYLATE (1 MG) 1 MG TABLET GT SCH (09:45)
[2019-05-28] MEDS: ACIDOPHILUS/BULGARICUS 1 EACH TAB.CHEW GT SCH ×2 (09:46→17:00)
[2019-05-28] MEDS: FUROSEMIDE 20 MG TABLET GT SCH (09:46)
[2019-05-28] MEDS: PRAMIPEXOLE DI-HCL 0.25 MG TABLET GT SCH ×2 (09:46→17:00)
[2019-05-28] MEDS: SENNOSIDES 8.6 MG TABLET GT SCH ×2 (09:46→17:00)
[2019-05-28] MEDS: AMANTADINE SUSP 50 MG/5 ML UDC GT SCH (09:46)
[2019-05-28] MEDS: MULTIVITAMINS,THERAGRAN 1 UDTAB TABLET GT SCH (09:46)
[2019-05-28] MEDS: ATORVASTATIN 40 MG TABLET GT SCH (09:46)
[2019-05-28] MEDS: CHLORHEXIDINE GLUCONATE 15 ML UDC MM SCH ×2 (09:46→17:00)
[2019-05-28] MEDS: CLOPIDOGREL BISULFATE 75 MG TABLET GT SCH (09:46)
[2019-05-28] MEDS: Z GUARD REMEDY 4 OZ OINT TP SCH ×2 (09:47→21:49)
[2019-05-28] MEDS: VITAMINS A AND D 56.7 GM TUBE TP SCH ×2 (09:47→21:49)
[2019-05-28 20:15] VITALS: BP 108/63
[2019-05-28] MEDS: VITAL AF 1.2 1,000 ML BOTTLE GT PRN (22:05)
[2019-05-29] MEDS: CARBIDOPA/LEVODOPA 25/100 MG 1 UDTAB GT SCH ×8 (01:44→21:46)
[2019-05-29] MEDS: ENTACAPONE 200 MG TABLET GT SCH ×8 (01:44→21:46)
[2019-05-29] MEDS: IPRATROPIUM NEB FS 0.5 MG/2.5 ML AMPUL.NEB NEB SCH ×4 (02:07→19:32)
[2019-05-29] MEDS: ALBUTEROL FS 2.5 MG/3 ML VIAL.NEB NEB SCH ×4 (02:07→19:32)
[2019-05-29] MEDS: LEVOTHYROXINE SODIUM 75 MCG TABLET GT SCH (05:59)
[2019-05-29] MEDS: PANTOPRAZOLE 40 MG/PACK PACK GT SCH (05:59)
[2019-05-29 07:13] LABS: BASOPHILS % (AUTO) 0.4 % (0.0-2.0); HEMATOCRIT 31 % (33-45); HEMOGLOBIN 10.7 g/dL (11.5-14.8); LYMPHOCYTES # (AUTO) 1.5 /CMM (0.8-4.8); LYMPHOCYTES % (AUTO) 20.5 % (20.0-44.0); MEAN CORPUSCULAR HGB CONC 34 g/dl (31.0-36.0); MEAN CORPUSCULAR VOLUME 95 fL (82-100); MONOCYTES # (AUTO) 0.5 /CMM (0.1-1.30); MONOCYTES % (AUTO) 6.1 % (2.0-12.0); NEUTROPHILS # (AUTO) 5.3 /CMM (1.8-8.9); PLATELET COUNT (AUTO) 314 /CMM (150-450); WHITE BLOOD COUNT (AUTO) 7.4 K/uL (4.3-11.0)
[2019-05-29 07:36] LABS: CALCIUM, SERUM 8.8 mg/dL (8.5-10.1); CARBON DIOXIDE 30 mmol/L (21-32); CHLORIDE 101 mmol/L (98-107); CREATININE 0.5 mg/dL (0.6-1.3); GLUCOSE 97 mg/dL (74-106); PHOSPHORUS 3.8 mg/dL (2.5-4.9); POTASSIUM 3.8 mmol/L (3.5-5.1); SODIUM SERUM 137 mmol/L (136-145); UREA NITROGEN, BLOOD 22 mg/dL (7-18)
[2019-05-29] MEDS: HYDROGEN PEROXIDE 480 ML BOTTLE TP SCH ×2 (07:47→21:00)
[2019-05-29 07:58] VITALS: BP 127/59
[2019-05-29] MEDS: BENZTROPINE MESYLATE (1 MG) 1 MG TABLET GT SCH (09:22)
[2019-05-29] MEDS: DOCUSATE SODIUM LIQ 100 MG/10 ML UDC GT SCH (09:22)
[2019-05-29] MEDS: LACTULOSE 10 G/15 ML UDC (PYXIS) GT SCH (09:22)
[2019-05-29] MEDS: FUROSEMIDE 20 MG TABLET GT SCH (09:23)
[2019-05-29] MEDS: AMANTADINE SUSP 50 MG/5 ML UDC GT SCH (09:23)
[2019-05-29] MEDS: PRAMIPEXOLE DI-HCL 0.25 MG TABLET GT SCH ×2 (09:23→17:00)
[2019-05-29] MEDS: SENNOSIDES 8.6 MG TABLET GT SCH ×2 (09:23→17:00)
[2019-05-29] MEDS: ACIDOPHILUS/BULGARICUS 1 EACH TAB.CHEW GT SCH ×2 (09:23→17:00)
[2019-05-29] MEDS: AMIODARONE HCL 200 MG TABLET GT SCH (09:23)
[2019-05-29] MEDS: CLOPIDOGREL BISULFATE 75 MG TABLET GT SCH (09:23)
[2019-05-29] MEDS: MULTIVITAMINS,THERAGRAN 1 UDTAB TABLET GT SCH (09:23)
[2019-05-29] MEDS: VITAMINS A AND D 56.7 GM TUBE TP SCH ×2 (09:23→21:46)
[2019-05-29] MEDS: CHLORHEXIDINE GLUCONATE 15 ML UDC MM SCH ×2 (09:23→17:00)
[2019-05-29] MEDS: Z GUARD REMEDY 4 OZ OINT TP SCH ×2 (09:23→21:46)
[2019-05-29] MEDS: ATORVASTATIN 40 MG TABLET GT SCH (09:23)
[2019-05-29] MEDS: VITAL AF 1.2 1,000 ML BOTTLE GT PRN (16:27)
[2019-05-29] MEDS: BISACODYL SUPP (10 MG) 10 MG/SUPP.RECT SUPP.RECT RC PRN (18:58)
[2019-05-29 20:42] VITALS: BP 143/70
[2019-05-30] MEDS: IPRATROPIUM NEB FS 0.5 MG/2.5 ML AMPUL.NEB NEB SCH ×4 (01:34→20:10)
[2019-05-30] MEDS: ALBUTEROL FS 2.5 MG/3 ML VIAL.NEB NEB SCH ×4 (01:34→20:10)
[2019-05-30] MEDS: ENTACAPONE 200 MG TABLET GT SCH ×8 (01:45→20:58)
[2019-05-30] MEDS: CARBIDOPA/LEVODOPA 25/100 MG 1 UDTAB GT SCH ×8 (01:45→20:58)
[2019-05-30] MEDS: LEVOTHYROXINE SODIUM 75 MCG TABLET GT SCH (05:52)
[2019-05-30] MEDS: PANTOPRAZOLE 40 MG/PACK PACK GT SCH (05:52)
[2019-05-30] MEDS: HYDROGEN PEROXIDE 480 ML BOTTLE TP SCH ×2 (07:33→20:10)
[2019-05-30 07:48] VITALS: BP 122/57
[2019-05-30] MEDS: LACTULOSE 10 G/15 ML UDC (PYXIS) GT SCH (09:30)
[2019-05-30] MEDS: BENZTROPINE MESYLATE (1 MG) 1 MG TABLET GT SCH (09:40)
[2019-05-30] MEDS: DOCUSATE SODIUM LIQ 100 MG/10 ML UDC GT SCH (09:40)
[2019-05-30] MEDS: CLOPIDOGREL BISULFATE 75 MG TABLET GT SCH (09:41)
[2019-05-30] MEDS: AMIODARONE HCL 200 MG TABLET GT SCH (09:41)
[2019-05-30] MEDS: ACIDOPHILUS/BULGARICUS 1 EACH TAB.CHEW GT SCH ×2 (09:41→16:42)
[2019-05-30] MEDS: ATORVASTATIN 40 MG TABLET GT SCH (09:41)
[2019-05-30] MEDS: MULTIVITAMINS,THERAGRAN 1 UDTAB TABLET GT SCH (09:41)
[2019-05-30] MEDS: CHLORHEXIDINE GLUCONATE 15 ML UDC MM SCH ×2 (09:41→16:42)
[2019-05-30] MEDS: AMANTADINE SUSP 50 MG/5 ML UDC GT SCH (09:41)
[2019-05-30] MEDS: FUROSEMIDE 20 MG TABLET GT SCH (09:41)
[2019-05-30] MEDS: SENNOSIDES 8.6 MG TABLET GT SCH ×2 (09:41→16:42)
[2019-05-30] MEDS: PRAMIPEXOLE DI-HCL 0.25 MG TABLET GT SCH ×2 (09:41→16:42)
[2019-05-30] MEDS: VITAMINS A AND D 56.7 GM TUBE TP SCH ×2 (09:42→21:00)
[2019-05-30] MEDS: Z GUARD REMEDY 4 OZ OINT TP SCH ×2 (09:42→21:00)
[2019-05-30] MEDS: VITAL AF 1.2 1,000 ML BOTTLE GT PRN (16:43)
[2019-05-30] MEDS: MAGNESIUM HYDROXIDE 30 ML UDC GT PRN (18:45)
[2019-05-30 20:10] VITALS: BP 88/60
[2019-05-31] MEDS: ALBUTEROL FS 2.5 MG/3 ML VIAL.NEB NEB SCH ×4 (01:52→19:49)
[2019-05-31] MEDS: IPRATROPIUM NEB FS 0.5 MG/2.5 ML AMPUL.NEB NEB SCH ×4 (01:52→19:49)
[2019-05-31] MEDS: CARBIDOPA/LEVODOPA 25/100 MG 1 UDTAB GT SCH ×8 (02:56→21:24)
[2019-05-31] MEDS: ENTACAPONE 200 MG TABLET GT SCH ×8 (02:56→21:24)
[2019-05-31] MEDS: PANTOPRAZOLE 40 MG/PACK PACK GT SCH (05:36)
[2019-05-31] MEDS: LEVOTHYROXINE SODIUM 75 MCG TABLET GT SCH (05:36)
[2019-05-31] MEDS: HYDROGEN PEROXIDE 480 ML BOTTLE TP SCH ×2 (07:40→21:20)
[2019-05-31 07:45] LABS: BASOPHILS % (AUTO) 0.3 % (0.0-2.0); EOSINOPHILS % (AUTO) 0.7 % (0.0-6.0); HEMATOCRIT 32 % (33-45); HEMOGLOBIN 10.8 g/dL (11.5-14.8); LYMPHOCYTES # (AUTO) 1.1 /CMM (0.8-4.8); LYMPHOCYTES % (AUTO) 13.7 % (20.0-44.0); MEAN CORPUSCULAR HGB CONC 34 g/dl (31.0-36.0); MEAN CORPUSCULAR VOLUME 96 fL (82-100); MONOCYTES # (AUTO) 0.5 /CMM (0.1-1.30); MONOCYTES % (AUTO) 6.4 % (2.0-12.0); NEUTROPHILS # (AUTO) 6.3 /CMM (1.8-8.9); NEUTROPHILS % (AUTO) 78.9 % (43.0-81.0); PLATELET COUNT (AUTO) 296 /CMM (150-450); RED BLOOD CELL COUNT(AUTO) 3.31 MIL/uL (4.0-5.2); WHITE BLOOD COUNT (AUTO) 7.9 K/uL (4.3-11.0)
[2019-05-31 07:48] VITALS: BP 114/59
[2019-05-31 08:07] LABS: IRON, SERUM 49 ug/dl (50-175); TOTAL IRON BINDING CAPACITY 244 ug/dl (250-450)
[2019-05-31 08:10] LABS: FERRITIN 73 ng/mL (8-388)
[2019-05-31] MEDS: MULTIVITAMINS,THERAGRAN 1 UDTAB TABLET GT SCH (09:11)
[2019-05-31] MEDS: CLOPIDOGREL BISULFATE 75 MG TABLET GT SCH (09:11)
[2019-05-31] MEDS: PRAMIPEXOLE DI-HCL 0.25 MG TABLET GT SCH ×2 (09:11→16:39)
[2019-05-31] MEDS: AMANTADINE SUSP 50 MG/5 ML UDC GT SCH (09:11)
[2019-05-31] MEDS: DOCUSATE SODIUM LIQ 100 MG/10 ML UDC GT SCH (09:11)
[2019-05-31] MEDS: VITAMINS A AND D 56.7 GM TUBE TP SCH ×2 (09:11→21:20)
[2019-05-31] MEDS: BENZTROPINE MESYLATE (1 MG) 1 MG TABLET GT SCH (09:11)
[2019-05-31] MEDS: AMIODARONE HCL 200 MG TABLET GT SCH (09:11)
[2019-05-31] MEDS: LACTULOSE 10 G/15 ML UDC (PYXIS) GT SCH (09:11)
[2019-05-31] MEDS: ATORVASTATIN 40 MG TABLET GT SCH (09:11)
[2019-05-31] MEDS: ACIDOPHILUS/BULGARICUS 1 EACH TAB.CHEW GT SCH ×2 (09:11→16:39)
[2019-05-31] MEDS: CHLORHEXIDINE GLUCONATE 15 ML UDC MM SCH ×2 (09:11→16:39)
[2019-05-31] MEDS: Z GUARD REMEDY 4 OZ OINT TP SCH ×2 (09:11→21:20)
[2019-05-31] MEDS: FUROSEMIDE 20 MG TABLET GT SCH (09:11)
[2019-05-31] MEDS: SENNOSIDES 8.6 MG TABLET GT SCH ×2 (09:11→16:39)
[2019-05-31] MEDS: VITAL AF 1.2 1,000 ML BOTTLE GT PRN (14:50)
[2019-05-31 20:00] VITALS: BP 136/61
[2019-05-31 20:20] VITALS: BP 136/61
[2019-06-01] MEDS: ENTACAPONE 200 MG TABLET GT SCH ×8 (01:43→21:18)
[2019-06-01] MEDS: CARBIDOPA/LEVODOPA 25/100 MG 1 UDTAB GT SCH ×8 (01:44→21:19)
[2019-06-01] MEDS: ALBUTEROL FS 2.5 MG/3 ML VIAL.NEB NEB SCH ×4 (02:01→19:14)
[2019-06-01] MEDS: IPRATROPIUM NEB FS 0.5 MG/2.5 ML AMPUL.NEB NEB SCH ×5 (02:01→19:14)
[2019-06-01] MEDS: LEVOTHYROXINE SODIUM 75 MCG TABLET GT SCH (06:15)
[2019-06-01] MEDS: PANTOPRAZOLE 40 MG/PACK PACK GT SCH (06:15)
[2019-06-01] MEDS: HYDROGEN PEROXIDE 480 ML BOTTLE TP SCH ×2 (07:40→20:27)
[2019-06-01 07:58] VITALS: BP 115/60
[2019-06-01] MEDS: CHLORHEXIDINE GLUCONATE 15 ML UDC MM SCH ×2 (09:40→16:45)
[2019-06-01] MEDS: ACIDOPHILUS/BULGARICUS 1 EACH TAB.CHEW GT SCH ×2 (09:40→16:45)
[2019-06-01] MEDS: SENNOSIDES 8.6 MG TABLET GT SCH ×2 (09:40→16:45)
[2019-06-01] MEDS: BENZTROPINE MESYLATE (1 MG) 1 MG TABLET GT SCH (09:40)
[2019-06-01] MEDS: AMIODARONE HCL 200 MG TABLET GT SCH (09:40)
[2019-06-01] MEDS: AMANTADINE SUSP 50 MG/5 ML UDC GT SCH (09:40)
[2019-06-01] MEDS: Z GUARD REMEDY 4 OZ OINT TP SCH ×2 (09:40→21:10)
[2019-06-01] MEDS: FUROSEMIDE 20 MG TABLET GT SCH (09:40)
[2019-06-01] MEDS: CLOPIDOGREL BISULFATE 75 MG TABLET GT SCH (09:40)
[2019-06-01] MEDS: PRAMIPEXOLE DI-HCL 0.25 MG TABLET GT SCH ×2 (09:40→16:45)
[2019-06-01] MEDS: DOCUSATE SODIUM LIQ 100 MG/10 ML UDC GT SCH (09:40)
[2019-06-01] MEDS: ATORVASTATIN 40 MG TABLET GT SCH (09:40)
[2019-06-01] MEDS: LACTULOSE 10 G/15 ML UDC (PYXIS) GT SCH (09:40)
[2019-06-01] MEDS: MULTIVITAMINS,THERAGRAN 1 UDTAB TABLET GT SCH (09:40)
[2019-06-01] MEDS: VITAMINS A AND D 56.7 GM TUBE TP SCH ×2 (09:40→21:10)
[2019-06-01] MEDS: VITAL AF 1.2 1,000 ML BOTTLE GT PRN (11:55)
[2019-06-01] MEDS: MAGNESIUM HYDROXIDE 30 ML UDC GT PRN (15:00)
[2019-06-01] MEDS: BISACODYL SUPP (10 MG) 10 MG/SUPP.RECT SUPP.RECT RC PRN (16:46)
[2019-06-02 01:16] VITALS: BP 114/59
[2019-06-02] MEDS: ALBUTEROL FS 2.5 MG/3 ML VIAL.NEB NEB SCH ×4 (01:40→19:55)
[2019-06-02] MEDS: IPRATROPIUM NEB FS 0.5 MG/2.5 ML AMPUL.NEB NEB SCH ×4 (01:40→19:55)
[2019-06-02] MEDS: ENTACAPONE 200 MG TABLET GT SCH ×8 (03:22→21:14)
[2019-06-02] MEDS: CARBIDOPA/LEVODOPA 25/100 MG 1 UDTAB GT SCH ×8 (03:22→21:14)
[2019-06-02] MEDS: LEVOTHYROXINE SODIUM 75 MCG TABLET GT SCH (06:08)
[2019-06-02] MEDS: PANTOPRAZOLE 40 MG/PACK PACK GT SCH (06:08)
[2019-06-02] MEDS: VITAL AF 1.2 1,000 ML BOTTLE GT PRN (06:10)
[2019-06-02 07:32] VITALS: BP 137/58
[2019-06-02] MEDS: ATORVASTATIN 40 MG TABLET GT SCH (08:10)
[2019-06-02] MEDS: AMIODARONE HCL 200 MG TABLET GT SCH (08:10)
[2019-06-02] MEDS: MULTIVITAMINS,THERAGRAN 1 UDTAB TABLET GT SCH (08:10)
[2019-06-02] MEDS: FUROSEMIDE 20 MG TABLET GT SCH (08:10)
[2019-06-02] MEDS: BENZTROPINE MESYLATE (1 MG) 1 MG TABLET GT SCH (08:10)
[2019-06-02] MEDS: SENNOSIDES 8.6 MG TABLET GT SCH ×2 (08:10→17:02)
[2019-06-02] MEDS: Z GUARD REMEDY 4 OZ OINT TP SCH ×2 (08:10→21:14)
[2019-06-02] MEDS: LACTULOSE 10 G/15 ML UDC (PYXIS) GT SCH (08:10)
[2019-06-02] MEDS: DOCUSATE SODIUM LIQ 100 MG/10 ML UDC GT SCH (08:10)
[2019-06-02] MEDS: ACIDOPHILUS/BULGARICUS 1 EACH TAB.CHEW GT SCH ×2 (08:10→17:02)
[2019-06-02] MEDS: AMANTADINE SUSP 50 MG/5 ML UDC GT SCH (08:10)
[2019-06-02] MEDS: PRAMIPEXOLE DI-HCL 0.25 MG TABLET GT SCH ×2 (08:10→17:02)
[2019-06-02] MEDS: CLOPIDOGREL BISULFATE 75 MG TABLET GT SCH (08:10)
[2019-06-02] MEDS: VITAMINS A AND D 56.7 GM TUBE TP SCH ×2 (08:10→21:14)
[2019-06-02] MEDS: CHLORHEXIDINE GLUCONATE 15 ML UDC MM SCH ×2 (08:10→17:02)
[2019-06-02] MEDS: HYDROGEN PEROXIDE 480 ML BOTTLE TP SCH ×2 (09:10→21:05)
[2019-06-02 19:52] VITALS: BP 104/50
[2019-06-03] MEDS: ALBUTEROL FS 2.5 MG/3 ML VIAL.NEB NEB SCH ×4 (01:40→20:15)
[2019-06-03] MEDS: IPRATROPIUM NEB FS 0.5 MG/2.5 ML AMPUL.NEB NEB SCH ×4 (01:40→20:15)
[2019-06-03] MEDS: ENTACAPONE 200 MG TABLET GT SCH ×8 (02:30→21:13)
[2019-06-03] MEDS: CARBIDOPA/LEVODOPA 25/100 MG 1 UDTAB GT SCH ×8 (02:30→21:13)
[2019-06-03] MEDS: VITAL AF 1.2 1,000 ML BOTTLE GT PRN (05:22)
[2019-06-03] MEDS: LEVOTHYROXINE SODIUM 75 MCG TABLET GT SCH (05:29)
[2019-06-03] MEDS: PANTOPRAZOLE 40 MG/PACK PACK GT SCH (05:29)
[2019-06-03 07:37] VITALS: BP 128/58
[2019-06-03] MEDS: HYDROGEN PEROXIDE 480 ML BOTTLE TP SCH ×2 (07:58→21:35)
[2019-06-03] MEDS: FUROSEMIDE 20 MG TABLET GT SCH (09:57)
[2019-06-03] MEDS: BENZTROPINE MESYLATE (1 MG) 1 MG TABLET GT SCH (09:57)
[2019-06-03] MEDS: AMANTADINE SUSP 50 MG/5 ML UDC GT SCH (09:57)
[2019-06-03] MEDS: AMIODARONE HCL 200 MG TABLET GT SCH (09:57)
[2019-06-03] MEDS: CLOPIDOGREL BISULFATE 75 MG TABLET GT SCH (09:57)
[2019-06-03] MEDS: SENNOSIDES 8.6 MG TABLET GT SCH ×2 (09:57→17:01)
[2019-06-03] MEDS: ATORVASTATIN 40 MG TABLET GT SCH (09:57)
[2019-06-03] MEDS: PRAMIPEXOLE DI-HCL 0.25 MG TABLET GT SCH ×2 (09:57→17:00)
[2019-06-03] MEDS: MULTIVITAMINS,THERAGRAN 1 UDTAB TABLET GT SCH (09:57)
[2019-06-03] MEDS: DOCUSATE SODIUM LIQ 100 MG/10 ML UDC GT SCH (09:57)
[2019-06-03] MEDS: CHLORHEXIDINE GLUCONATE 15 ML UDC MM SCH ×2 (09:57→17:02)
[2019-06-03] MEDS: LACTULOSE 10 G/15 ML UDC (PYXIS) GT SCH (09:57)
[2019-06-03] MEDS: ACIDOPHILUS/BULGARICUS 1 EACH TAB.CHEW GT SCH ×2 (09:57→17:00)
[2019-06-03] MEDS: VITAMINS A AND D 56.7 GM TUBE TP SCH ×2 (09:58→21:13)
[2019-06-03] MEDS: Z GUARD REMEDY 4 OZ OINT TP SCH ×2 (09:58→21:12)
[2019-06-03 21:04] VITALS: BP 135/81
[2019-06-04] MEDS: ALBUTEROL FS 2.5 MG/3 ML VIAL.NEB NEB SCH ×4 (01:56→19:22)
[2019-06-04] MEDS: IPRATROPIUM NEB FS 0.5 MG/2.5 ML AMPUL.NEB NEB SCH ×4 (01:56→19:22)
[2019-06-04] MEDS: VITAL AF 1.2 1,000 ML BOTTLE GT PRN (04:02)
[2019-06-04] MEDS: ENTACAPONE 200 MG TABLET GT SCH ×8 (04:02→21:33)
[2019-06-04] MEDS: CARBIDOPA/LEVODOPA 25/100 MG 1 UDTAB GT SCH ×8 (04:02→21:33)
[2019-06-04] MEDS: LEVOTHYROXINE SODIUM 75 MCG TABLET GT SCH (05:46)
[2019-06-04] MEDS: PANTOPRAZOLE 40 MG/PACK PACK GT SCH (05:46)
[2019-06-04] MEDS: HYDROGEN PEROXIDE 480 ML BOTTLE TP SCH ×2 (07:37→21:00)
[2019-06-04 08:06] VITALS: BP 135/70
[2019-06-04] MEDS: BENZTROPINE MESYLATE (1 MG) 1 MG TABLET GT SCH (09:42)
[2019-06-04] MEDS: LACTULOSE 10 G/15 ML UDC (PYXIS) GT SCH (09:42)
[2019-06-04] MEDS: DOCUSATE SODIUM LIQ 100 MG/10 ML UDC GT SCH (09:42)
[2019-06-04] MEDS: CLOPIDOGREL BISULFATE 75 MG TABLET GT SCH (09:43)
[2019-06-04] MEDS: ACIDOPHILUS/BULGARICUS 1 EACH TAB.CHEW GT SCH ×2 (09:43→16:48)
[2019-06-04] MEDS: SENNOSIDES 8.6 MG TABLET GT SCH ×2 (09:43→16:48)
[2019-06-04] MEDS: ATORVASTATIN 40 MG TABLET GT SCH (09:43)
[2019-06-04] MEDS: PRAMIPEXOLE DI-HCL 0.25 MG TABLET GT SCH ×2 (09:43→16:48)
[2019-06-04] MEDS: AMANTADINE SUSP 50 MG/5 ML UDC GT SCH (09:43)
[2019-06-04] MEDS: MULTIVITAMINS,THERAGRAN 1 UDTAB TABLET GT SCH (09:43)
[2019-06-04] MEDS: CHLORHEXIDINE GLUCONATE 15 ML UDC MM SCH ×2 (09:43→16:48)
[2019-06-04] MEDS: FUROSEMIDE 20 MG TABLET GT SCH (09:43)
[2019-06-04] MEDS: Z GUARD REMEDY 4 OZ OINT TP SCH ×2 (09:43→21:33)
[2019-06-04] MEDS: AMIODARONE HCL 200 MG TABLET GT SCH (09:43)
[2019-06-04] MEDS: VITAMINS A AND D 56.7 GM TUBE TP SCH ×2 (09:48→21:33)
[2019-06-04 20:36] VITALS: BP 148/65
[2019-06-05] MEDS: IPRATROPIUM NEB FS 0.5 MG/2.5 ML AMPUL.NEB NEB SCH ×4 (01:57→19:24)
[2019-06-05] MEDS: ALBUTEROL FS 2.5 MG/3 ML VIAL.NEB NEB SCH ×4 (01:57→19:24)
[2019-06-05] MEDS: CARBIDOPA/LEVODOPA 25/100 MG 1 UDTAB GT SCH ×8 (02:56→21:14)
[2019-06-05] MEDS: ENTACAPONE 200 MG TABLET GT SCH ×8 (02:56→21:13)
[2019-06-05] MEDS: VITAL AF 1.2 1,000 ML BOTTLE GT PRN (02:58)
[2019-06-05] MEDS: PANTOPRAZOLE 40 MG/PACK PACK GT SCH (05:52)
[2019-06-05] MEDS: LEVOTHYROXINE SODIUM 75 MCG TABLET GT SCH (05:52)
[2019-06-05] MEDS: HYDROGEN PEROXIDE 480 ML BOTTLE TP SCH ×2 (07:44→21:00)
[2019-06-05 08:04] VITALS: BP 109/61
[2019-06-05] MEDS: ACIDOPHILUS/BULGARICUS 1 EACH TAB.CHEW GT SCH ×2 (09:00→17:05)
[2019-06-05] MEDS: CLOPIDOGREL BISULFATE 75 MG TABLET GT SCH (09:00)
[2019-06-05] MEDS: DOCUSATE SODIUM LIQ 100 MG/10 ML UDC GT SCH (09:00)
[2019-06-05] MEDS: PRAMIPEXOLE DI-HCL 0.25 MG TABLET GT SCH ×2 (09:00→17:05)
[2019-06-05] MEDS: VITAMINS A AND D 56.7 GM TUBE TP SCH ×2 (09:00→21:13)
[2019-06-05] MEDS: AMANTADINE SUSP 50 MG/5 ML UDC GT SCH (09:00)
[2019-06-05] MEDS: Z GUARD REMEDY 4 OZ OINT TP SCH ×2 (09:00→21:13)
[2019-06-05] MEDS: ATORVASTATIN 40 MG TABLET GT SCH (09:00)
[2019-06-05] MEDS: BENZTROPINE MESYLATE (1 MG) 1 MG TABLET GT SCH (09:00)
[2019-06-05] MEDS: SENNOSIDES 8.6 MG TABLET GT SCH ×2 (09:00→17:05)
[2019-06-05] MEDS: FUROSEMIDE 20 MG TABLET GT SCH (09:00)
[2019-06-05] MEDS: LACTULOSE 10 G/15 ML UDC (PYXIS) GT SCH (09:00)
[2019-06-05] MEDS: CHLORHEXIDINE GLUCONATE 15 ML UDC MM SCH ×2 (09:00→17:05)
[2019-06-05] MEDS: MULTIVITAMINS,THERAGRAN 1 UDTAB TABLET GT SCH (09:00)
[2019-06-05] MEDS: AMIODARONE HCL 200 MG TABLET GT SCH (09:00)
[2019-06-05 20:07] VITALS: BP 139/52
[2019-06-06] MEDS: ALBUTEROL FS 2.5 MG/3 ML VIAL.NEB NEB SCH ×4 (02:12→19:57)
[2019-06-06] MEDS: IPRATROPIUM NEB FS 0.5 MG/2.5 ML AMPUL.NEB NEB SCH ×4 (02:12→19:57)
[2019-06-06] MEDS: ENTACAPONE 200 MG TABLET GT SCH ×8 (03:32→21:16)
[2019-06-06] MEDS: CARBIDOPA/LEVODOPA 25/100 MG 1 UDTAB GT SCH ×8 (03:32→21:16)
[2019-06-06] MEDS: VITAL AF 1.2 1,000 ML BOTTLE GT PRN (05:47)
[2019-06-06] MEDS: PANTOPRAZOLE 40 MG/PACK PACK GT SCH (05:47)
[2019-06-06] MEDS: LEVOTHYROXINE SODIUM 75 MCG TABLET GT SCH (05:47)
[2019-06-06 07:46] VITALS: BP 122/52
[2019-06-06] MEDS: LACTULOSE 10 G/15 ML UDC (PYXIS) GT SCH (08:26)
[2019-06-06] MEDS: BENZTROPINE MESYLATE (1 MG) 1 MG TABLET GT SCH (08:36)
[2019-06-06] MEDS: DOCUSATE SODIUM LIQ 100 MG/10 ML UDC GT SCH (08:37)
[2019-06-06] MEDS: AMIODARONE HCL 200 MG TABLET GT SCH (08:39)
[2019-06-06] MEDS: FUROSEMIDE 20 MG TABLET GT SCH (08:40)
[2019-06-06] MEDS: ACIDOPHILUS/BULGARICUS 1 EACH TAB.CHEW GT SCH ×2 (08:40→16:39)
[2019-06-06] MEDS: ATORVASTATIN 40 MG TABLET GT SCH (08:40)
[2019-06-06] MEDS: SENNOSIDES 8.6 MG TABLET GT SCH ×2 (08:41→16:39)
[2019-06-06] MEDS: CLOPIDOGREL BISULFATE 75 MG TABLET GT SCH (08:41)
[2019-06-06] MEDS: AMANTADINE SUSP 50 MG/5 ML UDC GT SCH (08:42)
[2019-06-06] MEDS: MULTIVITAMINS,THERAGRAN 1 UDTAB TABLET GT SCH (08:46)
[2019-06-06] MEDS: PRAMIPEXOLE DI-HCL 0.25 MG TABLET GT SCH ×2 (08:46→16:39)
[2019-06-06] MEDS: CHLORHEXIDINE GLUCONATE 15 ML UDC MM SCH ×2 (08:46→16:49)
[2019-06-06] MEDS: Z GUARD REMEDY 4 OZ OINT TP SCH ×2 (08:48→21:16)
[2019-06-06] MEDS: VITAMINS A AND D 56.7 GM TUBE TP SCH ×2 (08:48→21:16)
[2019-06-06] MEDS: HYDROGEN PEROXIDE 480 ML BOTTLE TP SCH ×2 (09:07→20:34)
[2019-06-06] MEDS: MAGNESIUM HYDROXIDE 30 ML UDC GT PRN (16:44)
[2019-06-06 21:16] VITALS: BP 124/64
[2019-06-07] MEDS: ALBUTEROL FS 2.5 MG/3 ML VIAL.NEB NEB SCH ×4 (01:25→19:12)
[2019-06-07] MEDS: IPRATROPIUM NEB FS 0.5 MG/2.5 ML AMPUL.NEB NEB SCH ×4 (01:25→19:12)
[2019-06-07] MEDS: VITAL AF 1.2 1,000 ML BOTTLE GT PRN ×2 (02:00→22:08)
[2019-06-07] MEDS: ENTACAPONE 200 MG TABLET GT SCH ×8 (02:17→21:06)
[2019-06-07] MEDS: CARBIDOPA/LEVODOPA 25/100 MG 1 UDTAB GT SCH ×8 (02:17→21:05)
[2019-06-07] MEDS: PANTOPRAZOLE 40 MG/PACK PACK GT SCH (05:48)
[2019-06-07] MEDS: LEVOTHYROXINE SODIUM 75 MCG TABLET GT SCH (05:48)
[2019-06-07 08:07] VITALS: BP 103/51
[2019-06-07] MEDS: HYDROGEN PEROXIDE 480 ML BOTTLE TP SCH ×2 (08:35→19:12)
[2019-06-07] MEDS: BENZTROPINE MESYLATE (1 MG) 1 MG TABLET GT SCH (09:07)
[2019-06-07] MEDS: LACTULOSE 10 G/15 ML UDC (PYXIS) GT SCH (09:07)
[2019-06-07] MEDS: DOCUSATE SODIUM LIQ 100 MG/10 ML UDC GT SCH (09:07)
[2019-06-07] MEDS: ATORVASTATIN 40 MG TABLET GT SCH (09:09)
[2019-06-07] MEDS: AMIODARONE HCL 200 MG TABLET GT SCH (09:09)
[2019-06-07] MEDS: FUROSEMIDE 20 MG TABLET GT SCH (09:09)
[2019-06-07] MEDS: ACIDOPHILUS/BULGARICUS 1 EACH TAB.CHEW GT SCH ×2 (09:09→16:40)
[2019-06-07] MEDS: PRAMIPEXOLE DI-HCL 0.25 MG TABLET GT SCH ×2 (09:13→16:40)
[2019-06-07] MEDS: CLOPIDOGREL BISULFATE 75 MG TABLET GT SCH (09:13)
[2019-06-07] MEDS: SENNOSIDES 8.6 MG TABLET GT SCH ×2 (09:14→16:40)
[2019-06-07] MEDS: AMANTADINE SUSP 50 MG/5 ML UDC GT SCH (09:14)
[2019-06-07] MEDS: MULTIVITAMINS,THERAGRAN 1 UDTAB TABLET GT SCH (09:14)
[2019-06-07] MEDS: VITAMINS A AND D 56.7 GM TUBE TP SCH ×2 (09:15→21:05)
[2019-06-07] MEDS: CHLORHEXIDINE GLUCONATE 15 ML UDC MM SCH ×2 (09:15→16:40)
[2019-06-07] MEDS: Z GUARD REMEDY 4 OZ OINT TP SCH ×2 (09:15→21:05)
[2019-06-07 20:41] VITALS: BP 127/65
[2019-06-08] MEDS: IPRATROPIUM NEB FS 0.5 MG/2.5 ML AMPUL.NEB NEB SCH ×4 (00:50→19:11)
[2019-06-08] MEDS: ALBUTEROL FS 2.5 MG/3 ML VIAL.NEB NEB SCH ×4 (00:50→19:11)
[2019-06-08] MEDS: ENTACAPONE 200 MG TABLET GT SCH ×8 (03:28→21:30)
[2019-06-08] MEDS: CARBIDOPA/LEVODOPA 25/100 MG 1 UDTAB GT SCH ×8 (03:28→21:30)
[2019-06-08] MEDS: PANTOPRAZOLE 40 MG/PACK PACK GT SCH (05:43)
[2019-06-08] MEDS: LEVOTHYROXINE SODIUM 75 MCG TABLET GT SCH (05:44)
[2019-06-08 06:34] LABS: BASOPHILS % (AUTO) 0.5 % (0.0-2.0); EOSINOPHILS % (AUTO) 0.7 % (0.0-6.0); HEMATOCRIT 32 % (33-45); HEMOGLOBIN 11.1 g/dL (11.5-14.8); LYMPHOCYTES # (AUTO) 1.1 /CMM (0.8-4.8); LYMPHOCYTES % (AUTO) 17.8 % (20.0-44.0); MEAN CORPUSCULAR HGB CONC 35 g/dl (31.0-36.0); MEAN CORPUSCULAR VOLUME 96 fL (82-100); MONOCYTES # (AUTO) 0.4 /CMM (0.1-1.30); MONOCYTES % (AUTO) 6.8 % (2.0-12.0); NEUTROPHILS # (AUTO) 4.4 /CMM (1.8-8.9); NEUTROPHILS % (AUTO) 74.2 % (43.0-81.0); PLATELET COUNT (AUTO) 307 /CMM (150-450); RED BLOOD CELL COUNT(AUTO) 3.33 MIL/uL (4.0-5.2); WHITE BLOOD COUNT (AUTO) 5.9 K/uL (4.3-11.0)
[2019-06-08 07:17] LABS: THYROID STIMULATING HORMONE 1.504 uIU/mL (0.358-3.74)
[2019-06-08 07:33] VITALS: BP 105/71
[2019-06-08 07:41] LABS: ALANINE AMINOTRANSFERASE 13 U/L (12-78); ALBUMIN 2.7 g/dL (3.4-5.0); ALKALINE PHOSPHATASE 70 U/L (46-116); ASPARTATE AMINOTRANSFERASE 34 U/L (15-37); CALCIUM, SERUM 8.9 mg/dL (8.5-10.1); CARBON DIOXIDE 29 mmol/L (21-32); CHLORIDE 102 mmol/L (98-107); CREATININE 0.5 mg/dL (0.6-1.3); GLUCOSE 99 mg/dL (74-106); PHOSPHORUS 3.6 mg/dL (2.5-4.9); POTASSIUM 4.1 mmol/L (3.5-5.1); SODIUM SERUM 138 mmol/L (136-145); TOTAL PROTEIN, SERUM 5.8 g/dL (6.4-8.2); UREA NITROGEN, BLOOD 22 mg/dL (7-18)
[2019-06-08 08:21] LABS: BILIRUBIN,TOTAL 0.3 mg/dL (0.2-1.0)
[2019-06-08] MEDS: CHLORHEXIDINE GLUCONATE 15 ML UDC MM SCH ×2 (09:00→17:22)
[2019-06-08] MEDS: VITAMINS A AND D 56.7 GM TUBE TP SCH ×2 (09:00→21:00)
[2019-06-08] MEDS: ACIDOPHILUS/BULGARICUS 1 EACH TAB.CHEW GT SCH ×2 (09:00→17:22)
[2019-06-08] MEDS: FUROSEMIDE 20 MG TABLET GT SCH (09:00)
[2019-06-08] MEDS: SENNOSIDES 8.6 MG TABLET GT SCH ×2 (09:00→17:22)
[2019-06-08] MEDS: AMANTADINE SUSP 50 MG/5 ML UDC GT SCH (09:00)
[2019-06-08] MEDS: CLOPIDOGREL BISULFATE 75 MG TABLET GT SCH (09:00)
[2019-06-08] MEDS: PRAMIPEXOLE DI-HCL 0.25 MG TABLET GT SCH ×2 (09:00→17:22)
[2019-06-08] MEDS: MULTIVITAMINS,THERAGRAN 1 UDTAB TABLET GT SCH (09:00)
[2019-06-08] MEDS: ATORVASTATIN 40 MG TABLET GT SCH (09:00)
[2019-06-08] MEDS: AMIODARONE HCL 200 MG TABLET GT SCH (09:00)
[2019-06-08] MEDS: DOCUSATE SODIUM LIQ 100 MG/10 ML UDC GT SCH (09:00)
[2019-06-08] MEDS: LACTULOSE 10 G/15 ML UDC (PYXIS) GT SCH (09:00)
[2019-06-08] MEDS: Z GUARD REMEDY 4 OZ OINT TP SCH ×2 (09:00→21:00)
[2019-06-08] MEDS: BENZTROPINE MESYLATE (1 MG) 1 MG TABLET GT SCH (09:00)
[2019-06-08] MEDS: HYDROGEN PEROXIDE 480 ML BOTTLE TP SCH ×2 (09:41→20:39)
[2019-06-08 09:54] LABS: MAGNESIUM 2.1 mg/dL (1.8-2.4)
[2019-06-08] MEDS: VITAL AF 1.2 1,000 ML BOTTLE GT PRN (17:36)
[2019-06-08 20:04] VITALS: BP 98/53
[2019-06-09] MEDS: ALBUTEROL FS 2.5 MG/3 ML VIAL.NEB NEB SCH ×4 (00:54→19:32)
[2019-06-09] MEDS: IPRATROPIUM NEB FS 0.5 MG/2.5 ML AMPUL.NEB NEB SCH ×4 (00:54→19:32)
[2019-06-09] MEDS: CARBIDOPA/LEVODOPA 25/100 MG 1 UDTAB GT SCH ×7 (02:30→21:30)
[2019-06-09] MEDS: ENTACAPONE 200 MG TABLET GT SCH ×7 (02:30→21:30)
[2019-06-09] MEDS: LEVOTHYROXINE SODIUM 75 MCG TABLET GT SCH (06:00)
[2019-06-09] MEDS: PANTOPRAZOLE 40 MG/PACK PACK GT SCH (06:00)
[2019-06-09 07:46] VITALS: BP_SYST 143; BP_DIAS 70; BP_DIAS 77
[2019-06-09] MEDS: HYDROGEN PEROXIDE 480 ML BOTTLE TP SCH ×2 (09:00→21:00)
[2019-06-09] MEDS: DOCUSATE SODIUM LIQ 100 MG/10 ML UDC GT SCH (09:22)
[2019-06-09] MEDS: LACTULOSE 10 G/15 ML UDC (PYXIS) GT SCH (09:22)
[2019-06-09] MEDS: BENZTROPINE MESYLATE (1 MG) 1 MG TABLET GT SCH (09:22)
[2019-06-09] MEDS: AMIODARONE HCL 200 MG TABLET GT SCH (09:22)
[2019-06-09] MEDS: ATORVASTATIN 40 MG TABLET GT SCH (09:23)
[2019-06-09] MEDS: FUROSEMIDE 20 MG TABLET GT SCH (09:23)
[2019-06-09] MEDS: AMANTADINE SUSP 50 MG/5 ML UDC GT SCH (09:23)
[2019-06-09] MEDS: VITAMINS A AND D 56.7 GM TUBE TP SCH ×2 (09:23→21:30)
[2019-06-09] MEDS: CLOPIDOGREL BISULFATE 75 MG TABLET GT SCH (09:23)
[2019-06-09] MEDS: ACIDOPHILUS/BULGARICUS 1 EACH TAB.CHEW GT SCH ×2 (09:23→17:51)
[2019-06-09] MEDS: Z GUARD REMEDY 4 OZ OINT TP SCH ×2 (09:23→21:30)
[2019-06-09] MEDS: SENNOSIDES 8.6 MG TABLET GT SCH ×2 (09:23→17:51)
[2019-06-09] MEDS: MULTIVITAMINS,THERAGRAN 1 UDTAB TABLET GT SCH (09:23)
[2019-06-09] MEDS: CHLORHEXIDINE GLUCONATE 15 ML UDC MM SCH ×2 (09:23→17:51)
[2019-06-09] MEDS: PRAMIPEXOLE DI-HCL 0.25 MG TABLET GT SCH ×2 (09:23→17:51)
[2019-06-09] MEDS: VITAL AF 1.2 1,000 ML BOTTLE GT PRN (13:05)
[2019-06-09 20:18] VITALS: BP 100/52
[2019-06-10] MEDS: IPRATROPIUM NEB FS 0.5 MG/2.5 ML AMPUL.NEB NEB SCH ×4 (01:30→20:12)
[2019-06-10] MEDS: ALBUTEROL FS 2.5 MG/3 ML VIAL.NEB NEB SCH ×4 (01:30→20:12)
[2019-06-10] MEDS: CARBIDOPA/LEVODOPA 25/100 MG 1 UDTAB GT SCH ×8 (02:28→21:29)
[2019-06-10] MEDS: ENTACAPONE 200 MG TABLET GT SCH ×8 (02:28→21:29)
[2019-06-10] MEDS: PANTOPRAZOLE 40 MG/PACK PACK GT SCH (05:52)
[2019-06-10] MEDS: LEVOTHYROXINE SODIUM 75 MCG TABLET GT SCH (05:52)
[2019-06-10] MEDS: VITAL AF 1.2 1,000 ML BOTTLE GT PRN (06:05)
[2019-06-10 07:34] VITALS: BP 113/63
[2019-06-10] MEDS: HYDROGEN PEROXIDE 480 ML BOTTLE TP SCH ×2 (07:42→20:13)
[2019-06-10] MEDS: AMANTADINE SUSP 50 MG/5 ML UDC GT SCH (09:36)
[2019-06-10] MEDS: MULTIVITAMINS,THERAGRAN 1 UDTAB TABLET GT SCH (09:36)
[2019-06-10] MEDS: LACTULOSE 10 G/15 ML UDC (PYXIS) GT SCH (09:36)
[2019-06-10] MEDS: PRAMIPEXOLE DI-HCL 0.25 MG TABLET GT SCH ×2 (09:36→16:56)
[2019-06-10] MEDS: CLOPIDOGREL BISULFATE 75 MG TABLET GT SCH (09:36)
[2019-06-10] MEDS: BENZTROPINE MESYLATE (1 MG) 1 MG TABLET GT SCH (09:36)
[2019-06-10] MEDS: FUROSEMIDE 20 MG TABLET GT SCH (09:36)
[2019-06-10] MEDS: ATORVASTATIN 40 MG TABLET GT SCH (09:36)
[2019-06-10] MEDS: AMIODARONE HCL 200 MG TABLET GT SCH (09:36)
[2019-06-10] MEDS: SENNOSIDES 8.6 MG TABLET GT SCH ×2 (09:36→16:56)
[2019-06-10] MEDS: ACIDOPHILUS/BULGARICUS 1 EACH TAB.CHEW GT SCH ×2 (09:36→16:56)
[2019-06-10] MEDS: DOCUSATE SODIUM LIQ 100 MG/10 ML UDC GT SCH (09:36)
[2019-06-10] MEDS: CHLORHEXIDINE GLUCONATE 15 ML UDC MM SCH ×2 (09:37→16:56)
[2019-06-10] MEDS: VITAMINS A AND D 56.7 GM TUBE TP SCH ×2 (09:37→21:28)
[2019-06-10] MEDS: Z GUARD REMEDY 4 OZ OINT TP SCH ×2 (09:37→21:28)
[2019-06-10 20:13] VITALS: BP 133/72
[2019-06-11] MEDS: ENTACAPONE 200 MG TABLET GT SCH ×8 (02:30→20:33)
[2019-06-11] MEDS: CARBIDOPA/LEVODOPA 25/100 MG 1 UDTAB GT SCH ×8 (02:30→20:33)
[2019-06-11] MEDS: IPRATROPIUM NEB FS 0.5 MG/2.5 ML AMPUL.NEB NEB SCH ×4 (02:47→20:15)
[2019-06-11] MEDS: ALBUTEROL FS 2.5 MG/3 ML VIAL.NEB NEB SCH ×4 (02:47→19:30)
[2019-06-11] MEDS: LEVOTHYROXINE SODIUM 75 MCG TABLET GT SCH (05:09)
[2019-06-11] MEDS: PANTOPRAZOLE 40 MG/PACK PACK GT SCH (05:09)
[2019-06-11] MEDS: VITAL AF 1.2 1,000 ML BOTTLE GT PRN (05:10)
[2019-06-11] MEDS: HYDROGEN PEROXIDE 480 ML BOTTLE TP SCH ×2 (09:00→20:24)
[2019-06-11] MEDS: LACTULOSE 10 G/15 ML UDC (PYXIS) GT SCH (09:24)
[2019-06-11] MEDS: BENZTROPINE MESYLATE (1 MG) 1 MG TABLET GT SCH (09:24)
[2019-06-11] MEDS: DOCUSATE SODIUM LIQ 100 MG/10 ML UDC GT SCH (09:25)
[2019-06-11] MEDS: AMIODARONE HCL 200 MG TABLET GT SCH (09:26)
[2019-06-11] MEDS: ACIDOPHILUS/BULGARICUS 1 EACH TAB.CHEW GT SCH ×2 (09:26→17:00)
[2019-06-11] MEDS: FUROSEMIDE 20 MG TABLET GT SCH (09:27)
[2019-06-11] MEDS: ATORVASTATIN 40 MG TABLET GT SCH (09:27)
[2019-06-11] MEDS: PRAMIPEXOLE DI-HCL 0.25 MG TABLET GT SCH ×2 (09:28→17:00)
[2019-06-11] MEDS: CLOPIDOGREL BISULFATE 75 MG TABLET GT SCH (09:28)
[2019-06-11] MEDS: SENNOSIDES 8.6 MG TABLET GT SCH ×2 (09:28→17:00)
[2019-06-11] MEDS: AMANTADINE SUSP 50 MG/5 ML UDC GT SCH (09:29)
[2019-06-11] MEDS: Z GUARD REMEDY 4 OZ OINT TP SCH ×2 (09:30→20:24)
[2019-06-11] MEDS: CHLORHEXIDINE GLUCONATE 15 ML UDC MM SCH ×2 (09:30→17:00)
[2019-06-11] MEDS: MULTIVITAMINS,THERAGRAN 1 UDTAB TABLET GT SCH (09:30)
[2019-06-11] MEDS: VITAMINS A AND D 56.7 GM TUBE TP SCH (09:30)
[2019-06-11 10:17] VITALS: BP 97/54
[2019-06-11 20:02] VITALS: BP 130/88
[2019-06-11] MEDS: VITS A AND D/WHITE PET/LANOLIN 5 GM PACKET TP SCH (20:24)
[2019-06-12] MEDS: IPRATROPIUM NEB FS 0.5 MG/2.5 ML AMPUL.NEB NEB SCH ×3 (02:10→14:24)
[2019-06-12] MEDS: ALBUTEROL FS 2.5 MG/3 ML VIAL.NEB NEB SCH ×3 (02:10→14:24)
[2019-06-12] MEDS: CARBIDOPA/LEVODOPA 25/100 MG 1 UDTAB GT SCH ×8 (02:59→21:12)
[2019-06-12] MEDS: ENTACAPONE 200 MG TABLET GT SCH ×8 (03:00→21:12)
[2019-06-12] MEDS: VITAL AF 1.2 1,000 ML BOTTLE GT PRN ×2 (05:33→23:03)
[2019-06-12] MEDS: PANTOPRAZOLE 40 MG/PACK PACK GT SCH (05:33)
[2019-06-12] MEDS: LEVOTHYROXINE SODIUM 75 MCG TABLET GT SCH (05:33)
[2019-06-12] MEDS: ACIDOPHILUS/BULGARICUS 1 EACH TAB.CHEW GT SCH ×2 (08:26→17:13)
[2019-06-12] MEDS: LACTULOSE 10 G/15 ML UDC (PYXIS) GT SCH (08:26)
[2019-06-12] MEDS: PRAMIPEXOLE DI-HCL 0.25 MG TABLET GT SCH ×2 (08:26→17:13)
[2019-06-12] MEDS: BENZTROPINE MESYLATE (1 MG) 1 MG TABLET GT SCH (08:26)
[2019-06-12] MEDS: DOCUSATE SODIUM LIQ 100 MG/10 ML UDC GT SCH (08:26)
[2019-06-12] MEDS: AMIODARONE HCL 200 MG TABLET GT SCH (08:26)
[2019-06-12] MEDS: ATORVASTATIN 40 MG TABLET GT SCH (08:26)
[2019-06-12] MEDS: FUROSEMIDE 20 MG TABLET GT SCH (08:26)
[2019-06-12] MEDS: CHLORHEXIDINE GLUCONATE 15 ML UDC MM SCH ×2 (08:27→17:13)
[2019-06-12] MEDS: MULTIVITAMINS,THERAGRAN 1 UDTAB TABLET GT SCH (08:27)
[2019-06-12] MEDS: AMANTADINE SUSP 50 MG/5 ML UDC GT SCH (08:27)
[2019-06-12] MEDS: CLOPIDOGREL BISULFATE 75 MG TABLET GT SCH (08:27)
[2019-06-12] MEDS: SENNOSIDES 8.6 MG TABLET GT SCH ×2 (08:27→17:13)
[2019-06-12] MEDS: HYDROGEN PEROXIDE 480 ML BOTTLE TP SCH ×2 (09:00→20:27)
[2019-06-12] MEDS: VITS A AND D/WHITE PET/LANOLIN 5 GM PACKET TP SCH ×2 (09:00→21:12)
[2019-06-12] MEDS: Z GUARD REMEDY 4 OZ OINT TP SCH ×2 (09:00→21:12)
[2019-06-12 10:59] VITALS: BP 121/66
[2019-06-12] MEDS ORDERED: IPRATROPIUM NEB FS 0.5 MG/2.5 ML AMPUL.NEB NEB PRN (16:30)
[2019-06-12] MEDS: MAGNESIUM HYDROXIDE 30 ML UDC GT PRN (18:43)
[2019-06-12 20:24] VITALS: BP 107/57
[2019-06-13] MEDS: ENTACAPONE 200 MG TABLET GT SCH ×8 (01:51→21:44)
[2019-06-13] MEDS: CARBIDOPA/LEVODOPA 25/100 MG 1 UDTAB GT SCH ×8 (01:51→21:44)
[2019-06-13] MEDS: PANTOPRAZOLE 40 MG/PACK PACK GT SCH (05:45)
[2019-06-13] MEDS: LEVOTHYROXINE SODIUM 75 MCG TABLET GT SCH (05:46)
[2019-06-13 07:32] VITALS: BP 131/83
[2019-06-13] MEDS: BENZTROPINE MESYLATE (1 MG) 1 MG TABLET GT SCH (08:06)
[2019-06-13] MEDS: DOCUSATE SODIUM LIQ 100 MG/10 ML UDC GT SCH (08:06)
[2019-06-13] MEDS: AMIODARONE HCL 200 MG TABLET GT SCH (08:06)
[2019-06-13] MEDS: LACTULOSE 10 G/15 ML UDC (PYXIS) GT SCH (08:06)
[2019-06-13] MEDS: SENNOSIDES 8.6 MG TABLET GT SCH ×2 (08:07→17:45)
[2019-06-13] MEDS: ACIDOPHILUS/BULGARICUS 1 EACH TAB.CHEW GT SCH ×2 (08:07→17:45)
[2019-06-13] MEDS: FUROSEMIDE 20 MG TABLET GT SCH (08:07)
[2019-06-13] MEDS: AMANTADINE SUSP 50 MG/5 ML UDC GT SCH (08:07)
[2019-06-13] MEDS: PRAMIPEXOLE DI-HCL 0.25 MG TABLET GT SCH ×2 (08:07→17:45)
[2019-06-13] MEDS: CHLORHEXIDINE GLUCONATE 15 ML UDC MM SCH ×2 (08:07→17:45)
[2019-06-13] MEDS: VITS A AND D/WHITE PET/LANOLIN 5 GM PACKET TP SCH ×2 (08:07→21:44)
[2019-06-13] MEDS: Z GUARD REMEDY 4 OZ OINT TP SCH ×2 (08:07→21:44)
[2019-06-13] MEDS: ATORVASTATIN 40 MG TABLET GT SCH (08:07)
[2019-06-13] MEDS: MULTIVITAMINS,THERAGRAN 1 UDTAB TABLET GT SCH (08:07)
[2019-06-13] MEDS: CLOPIDOGREL BISULFATE 75 MG TABLET GT SCH (08:07)
[2019-06-13] MEDS: HYDROGEN PEROXIDE 480 ML BOTTLE TP SCH ×2 (10:20→20:17)
[2019-06-13] MEDS: VITAL AF 1.2 1,000 ML BOTTLE GT PRN (19:03)
[2019-06-13 20:35] VITALS: BP 135/60
[2019-06-14] MEDS: ENTACAPONE 200 MG TABLET GT SCH ×7 (03:08→21:36)
[2019-06-14] MEDS: CARBIDOPA/LEVODOPA 25/100 MG 1 UDTAB GT SCH ×7 (03:08→21:36)
[2019-06-14] MEDS: LEVOTHYROXINE SODIUM 75 MCG TABLET GT SCH (05:58)
[2019-06-14] MEDS: PANTOPRAZOLE 40 MG/PACK PACK GT SCH (05:58)
[2019-06-14 07:50] VITALS: BP 132/59
[2019-06-14] MEDS: BENZTROPINE MESYLATE (1 MG) 1 MG TABLET GT SCH (09:00)
[2019-06-14] MEDS: MULTIVITAMINS,THERAGRAN 1 UDTAB TABLET GT SCH (09:00)
[2019-06-14] MEDS: VITS A AND D/WHITE PET/LANOLIN 5 GM PACKET TP SCH ×2 (09:00→21:36)
[2019-06-14] MEDS: LACTULOSE 10 G/15 ML UDC (PYXIS) GT SCH (09:00)
[2019-06-14] MEDS: CLOPIDOGREL BISULFATE 75 MG TABLET GT SCH (09:00)
[2019-06-14] MEDS: ATORVASTATIN 40 MG TABLET GT SCH (09:00)
[2019-06-14] MEDS: AMANTADINE SUSP 50 MG/5 ML UDC GT SCH (09:00)
[2019-06-14] MEDS: SENNOSIDES 8.6 MG TABLET GT SCH ×2 (09:00→16:19)
[2019-06-14] MEDS: PRAMIPEXOLE DI-HCL 0.25 MG TABLET GT SCH ×2 (09:00→16:19)
[2019-06-14] MEDS: HYDROGEN PEROXIDE 480 ML BOTTLE TP SCH ×2 (09:00→21:35)
[2019-06-14] MEDS: AMIODARONE HCL 200 MG TABLET GT SCH (09:00)
[2019-06-14] MEDS: FUROSEMIDE 20 MG TABLET GT SCH (09:00)
[2019-06-14] MEDS: ACIDOPHILUS/BULGARICUS 1 EACH TAB.CHEW GT SCH ×2 (09:00→16:19)
[2019-06-14] MEDS: CHLORHEXIDINE GLUCONATE 15 ML UDC MM SCH ×2 (09:00→16:19)
[2019-06-14] MEDS: DOCUSATE SODIUM LIQ 100 MG/10 ML UDC GT SCH (09:00)
[2019-06-14] MEDS: Z GUARD REMEDY 4 OZ OINT TP SCH ×2 (09:00→21:36)
[2019-06-14] MEDS: VITAL AF 1.2 1,000 ML BOTTLE GT PRN (16:43)
[2019-06-14 19:43] VITALS: BP 113/54
[2019-06-15] MEDS: ENTACAPONE 200 MG TABLET GT SCH ×8 (02:47→21:17)
[2019-06-15] MEDS: CARBIDOPA/LEVODOPA 25/100 MG 1 UDTAB GT SCH ×8 (02:47→21:17)
[2019-06-15] MEDS: PANTOPRAZOLE 40 MG/PACK PACK GT SCH (06:22)
[2019-06-15] MEDS: LEVOTHYROXINE SODIUM 75 MCG TABLET GT SCH (06:22)
[2019-06-15] MEDS: HYDROGEN PEROXIDE 480 ML BOTTLE TP SCH ×2 (07:22→21:13)
[2019-06-15 07:57] VITALS: BP 128/60
[2019-06-15] MEDS: DOCUSATE SODIUM LIQ 100 MG/10 ML UDC GT SCH (09:00)
[2019-06-15] MEDS: VITS A AND D/WHITE PET/LANOLIN 5 GM PACKET TP SCH ×2 (09:00→21:15)
[2019-06-15] MEDS: Z GUARD REMEDY 4 OZ OINT TP SCH ×2 (09:00→21:15)
[2019-06-15] MEDS: ACIDOPHILUS/BULGARICUS 1 EACH TAB.CHEW GT SCH ×2 (09:00→16:03)
[2019-06-15] MEDS: LACTULOSE 10 G/15 ML UDC (PYXIS) GT SCH (10:07)
[2019-06-15] MEDS: BENZTROPINE MESYLATE (1 MG) 1 MG TABLET GT SCH (10:08)
[2019-06-15] MEDS: AMIODARONE HCL 200 MG TABLET GT SCH (10:11)
[2019-06-15] MEDS: ATORVASTATIN 40 MG TABLET GT SCH (10:11)
[2019-06-15] MEDS: AMANTADINE SUSP 50 MG/5 ML UDC GT SCH (10:12)
[2019-06-15] MEDS: PRAMIPEXOLE DI-HCL 0.25 MG TABLET GT SCH ×2 (10:12→16:03)
[2019-06-15] MEDS: SENNOSIDES 8.6 MG TABLET GT SCH ×2 (10:12→16:03)
[2019-06-15] MEDS: MULTIVITAMINS,THERAGRAN 1 UDTAB TABLET GT SCH (10:13)
[2019-06-15] MEDS: FUROSEMIDE 20 MG TABLET GT SCH (10:15)
[2019-06-15] MEDS: CHLORHEXIDINE GLUCONATE 15 ML UDC MM SCH ×2 (10:15→16:03)
[2019-06-15] MEDS: CLOPIDOGREL BISULFATE 75 MG TABLET GT SCH (10:15)
[2019-06-15] MEDS: VITAL AF 1.2 1,000 ML BOTTLE GT PRN (17:37)
[2019-06-15 20:15] VITALS: BP 126/62
[2019-06-16] MEDS: CARBIDOPA/LEVODOPA 25/100 MG 1 UDTAB GT SCH ×8 (02:14→21:30)
[2019-06-16] MEDS: ENTACAPONE 200 MG TABLET GT SCH ×8 (02:15→21:30)
[2019-06-16] MEDS: LEVOTHYROXINE SODIUM 75 MCG TABLET GT SCH (05:40)
[2019-06-16] MEDS: PANTOPRAZOLE 40 MG/PACK PACK GT SCH (05:40)
[2019-06-16 07:53] VITALS: BP 104/87
[2019-06-16] MEDS: LACTULOSE 10 G/15 ML UDC (PYXIS) GT SCH (08:20)
[2019-06-16] MEDS: BENZTROPINE MESYLATE (1 MG) 1 MG TABLET GT SCH (08:20)
[2019-06-16] MEDS: DOCUSATE SODIUM LIQ 100 MG/10 ML UDC GT SCH (08:21)
[2019-06-16] MEDS: ACIDOPHILUS/BULGARICUS 1 EACH TAB.CHEW GT SCH ×2 (08:22→17:23)
[2019-06-16] MEDS: AMIODARONE HCL 200 MG TABLET GT SCH (08:22)
[2019-06-16] MEDS: ATORVASTATIN 40 MG TABLET GT SCH (08:23)
[2019-06-16] MEDS: CLOPIDOGREL BISULFATE 75 MG TABLET GT SCH (08:23)
[2019-06-16] MEDS: PRAMIPEXOLE DI-HCL 0.25 MG TABLET GT SCH ×2 (08:23→17:23)
[2019-06-16] MEDS: FUROSEMIDE 20 MG TABLET GT SCH (08:23)
[2019-06-16] MEDS: CHLORHEXIDINE GLUCONATE 15 ML UDC MM SCH ×2 (08:24→17:23)
[2019-06-16] MEDS: AMANTADINE SUSP 50 MG/5 ML UDC GT SCH (08:24)
[2019-06-16] MEDS: MULTIVITAMINS,THERAGRAN 1 UDTAB TABLET GT SCH (08:24)
[2019-06-16] MEDS: SENNOSIDES 8.6 MG TABLET GT SCH ×2 (08:24→17:23)
[2019-06-16] MEDS: VITS A AND D/WHITE PET/LANOLIN 5 GM PACKET TP SCH ×2 (08:25→21:58)
[2019-06-16] MEDS: Z GUARD REMEDY 4 OZ OINT TP SCH ×3 (08:25→21:57)
[2019-06-16] MEDS: HYDROGEN PEROXIDE 480 ML BOTTLE TP SCH ×2 (09:15→21:27)
[2019-06-16] MEDS: VITAL AF 1.2 1,000 ML BOTTLE GT PRN (12:22)
[2019-06-16 20:49] VITALS: BP 117/67
[2019-06-16] MEDS: HYDROGEL DRESSING 90 GM TUBE TP SCH (21:57)
[2019-06-16] MEDS: CLOTRIMAZOLE 1% 15 GM TUBE TP SCH (21:57)
[2019-06-17] MEDS: CARBIDOPA/LEVODOPA 25/100 MG 1 UDTAB GT SCH ×8 (03:11→21:24)
[2019-06-17] MEDS: ENTACAPONE 200 MG TABLET GT SCH ×8 (03:11→21:24)
[2019-06-17] MEDS: LEVOTHYROXINE SODIUM 75 MCG TABLET GT SCH (06:34)
[2019-06-17] MEDS: PANTOPRAZOLE 40 MG/PACK PACK GT SCH (06:34)
[2019-06-17 07:40] VITALS: BP 127/70
[2019-06-17] MEDS: SENNOSIDES 8.6 MG TABLET GT SCH ×2 (09:20→17:20)
[2019-06-17] MEDS: BENZTROPINE MESYLATE (1 MG) 1 MG TABLET GT SCH (09:20)
[2019-06-17] MEDS: PRAMIPEXOLE DI-HCL 0.25 MG TABLET GT SCH ×2 (09:20→17:20)
[2019-06-17] MEDS: LACTULOSE 10 G/15 ML UDC (PYXIS) GT SCH (09:20)
[2019-06-17] MEDS: CLOPIDOGREL BISULFATE 75 MG TABLET GT SCH (09:20)
[2019-06-17] MEDS: FUROSEMIDE 20 MG TABLET GT SCH (09:20)
[2019-06-17] MEDS: AMIODARONE HCL 200 MG TABLET GT SCH (09:20)
[2019-06-17] MEDS: ATORVASTATIN 40 MG TABLET GT SCH (09:20)
[2019-06-17] MEDS: DOCUSATE SODIUM LIQ 100 MG/10 ML UDC GT SCH (09:20)
[2019-06-17] MEDS: ACIDOPHILUS/BULGARICUS 1 EACH TAB.CHEW GT SCH ×2 (09:20→17:20)
[2019-06-17] MEDS: CHLORHEXIDINE GLUCONATE 15 ML UDC MM SCH ×2 (09:21→17:20)
[2019-06-17] MEDS: AMANTADINE SUSP 50 MG/5 ML UDC GT SCH (09:21)
[2019-06-17] MEDS: MULTIVITAMINS,THERAGRAN 1 UDTAB TABLET GT SCH (09:21)
[2019-06-17] MEDS: HYDROGEL DRESSING 90 GM TUBE TP SCH ×2 (09:52→21:24)
[2019-06-17] MEDS: CLOTRIMAZOLE 1% 15 GM TUBE TP SCH ×2 (09:52→21:24)
[2019-06-17] MEDS: Z GUARD REMEDY 4 OZ OINT TP SCH ×4 (09:52→21:24)
[2019-06-17] MEDS: VITS A AND D/WHITE PET/LANOLIN 5 GM PACKET TP SCH ×2 (09:52→21:24)
[2019-06-17] MEDS: VITAL AF 1.2 1,000 ML BOTTLE GT PRN (12:37)
[2019-06-17 20:40] VITALS: BP 105/71
[2019-06-17 20:42] VITALS: BP 102/67
[2019-06-17] MEDS: HYDROGEN PEROXIDE 480 ML BOTTLE TP SCH (21:05)
[2019-06-18] MEDS: CARBIDOPA/LEVODOPA 25/100 MG 1 UDTAB GT SCH ×8 (02:30→21:59)
[2019-06-18] MEDS: ENTACAPONE 200 MG TABLET GT SCH ×8 (02:30→21:58)
[2019-06-18] MEDS: LEVOTHYROXINE SODIUM 75 MCG TABLET GT SCH (05:59)
[2019-06-18] MEDS: PANTOPRAZOLE 40 MG/PACK PACK GT SCH (05:59)
[2019-06-18 07:43] VITALS: BP 133/58
[2019-06-18] MEDS: HYDROGEN PEROXIDE 480 ML BOTTLE TP SCH ×2 (08:16→21:00)
[2019-06-18] MEDS: DOCUSATE SODIUM LIQ 100 MG/10 ML UDC GT SCH (09:00)
[2019-06-18] MEDS: VITS A AND D/WHITE PET/LANOLIN 5 GM PACKET TP SCH ×2 (09:00→21:58)
[2019-06-18] MEDS: HYDROGEL DRESSING 90 GM TUBE TP SCH (09:00)
[2019-06-18] MEDS: Z GUARD REMEDY 4 OZ OINT TP SCH ×4 (09:00→21:58)
[2019-06-18] MEDS: PRAMIPEXOLE DI-HCL 0.25 MG TABLET GT SCH ×2 (09:00→16:05)
[2019-06-18] MEDS: CHLORHEXIDINE GLUCONATE 15 ML UDC MM SCH ×2 (09:00→16:05)
[2019-06-18] MEDS: AMANTADINE SUSP 50 MG/5 ML UDC GT SCH (09:00)
[2019-06-18] MEDS: FUROSEMIDE 20 MG TABLET GT SCH (09:00)
[2019-06-18] MEDS: BENZTROPINE MESYLATE (1 MG) 1 MG TABLET GT SCH (09:00)
[2019-06-18] MEDS: ATORVASTATIN 40 MG TABLET GT SCH (09:00)
[2019-06-18] MEDS: ACIDOPHILUS/BULGARICUS 1 EACH TAB.CHEW GT SCH ×2 (09:00→16:05)
[2019-06-18] MEDS: SENNOSIDES 8.6 MG TABLET GT SCH ×2 (09:00→16:05)
[2019-06-18] MEDS: MULTIVITAMINS,THERAGRAN 1 UDTAB TABLET GT SCH (09:00)
[2019-06-18] MEDS: AMIODARONE HCL 200 MG TABLET GT SCH (09:00)
[2019-06-18] MEDS: CLOTRIMAZOLE 1% 15 GM TUBE TP SCH ×2 (09:00→21:58)
[2019-06-18] MEDS: LACTULOSE 10 G/15 ML UDC (PYXIS) GT SCH (09:00)
[2019-06-18] MEDS: CLOPIDOGREL BISULFATE 75 MG TABLET GT SCH (09:00)
[2019-06-18] MEDS: BISACODYL SUPP (10 MG) 10 MG/SUPP.RECT SUPP.RECT RC PRN (18:55)
[2019-06-18 19:59] VITALS: BP 128/53
[2019-06-19] MEDS: CARBIDOPA/LEVODOPA 25/100 MG 1 UDTAB GT SCH ×8 (02:18→21:22)
[2019-06-19] MEDS: ENTACAPONE 200 MG TABLET GT SCH ×8 (02:18→21:22)
[2019-06-19] MEDS: LEVOTHYROXINE SODIUM 75 MCG TABLET GT SCH (06:04)
[2019-06-19] MEDS: PANTOPRAZOLE 40 MG/PACK PACK GT SCH (06:04)
[2019-06-19 07:45] VITALS: BP 121/69
[2019-06-19] MEDS: HYDROGEN PEROXIDE 480 ML BOTTLE TP SCH ×2 (08:38→20:02)
[2019-06-19] MEDS: LACTULOSE 10 G/15 ML UDC (PYXIS) GT SCH (08:39)
[2019-06-19] MEDS: MULTIVITAMINS,THERAGRAN 1 UDTAB TABLET GT SCH (08:40)
[2019-06-19] MEDS: AMANTADINE SUSP 50 MG/5 ML UDC GT SCH (08:40)
[2019-06-19] MEDS: SENNOSIDES 8.6 MG TABLET GT SCH ×2 (08:40→16:46)
[2019-06-19] MEDS: CHLORHEXIDINE GLUCONATE 15 ML UDC MM SCH ×2 (08:40→16:46)
[2019-06-19] MEDS: CLOPIDOGREL BISULFATE 75 MG TABLET GT SCH (08:41)
[2019-06-19] MEDS: ACIDOPHILUS/BULGARICUS 1 EACH TAB.CHEW GT SCH ×2 (08:41→16:46)
[2019-06-19] MEDS: FUROSEMIDE 20 MG TABLET GT SCH (08:41)
[2019-06-19] MEDS: ATORVASTATIN 40 MG TABLET GT SCH (08:41)
[2019-06-19] MEDS: DOCUSATE SODIUM LIQ 100 MG/10 ML UDC GT SCH (08:42)
[2019-06-19] MEDS: AMIODARONE HCL 200 MG TABLET GT SCH (08:42)
[2019-06-19] MEDS: BENZTROPINE MESYLATE (1 MG) 1 MG TABLET GT SCH (08:43)
[2019-06-19] MEDS: PRAMIPEXOLE DI-HCL 0.25 MG TABLET GT SCH ×2 (08:45→16:46)
[2019-06-19] MEDS: VITS A AND D/WHITE PET/LANOLIN 5 GM PACKET TP SCH ×2 (09:00→21:22)
[2019-06-19] MEDS: CLOTRIMAZOLE 1% 15 GM TUBE TP SCH ×2 (09:00→21:22)
[2019-06-19] MEDS: Z GUARD REMEDY 4 OZ OINT TP SCH ×4 (09:00→21:22)
[2019-06-19 20:00] VITALS: BP 125/55
[2019-06-20] MEDS: CARBIDOPA/LEVODOPA 25/100 MG 1 UDTAB GT SCH ×8 (02:38→21:47)
[2019-06-20] MEDS: ENTACAPONE 200 MG TABLET GT SCH ×8 (02:38→21:47)
[2019-06-20] MEDS: LEVOTHYROXINE SODIUM 75 MCG TABLET GT SCH (05:57)
[2019-06-20] MEDS: PANTOPRAZOLE 40 MG/PACK PACK GT SCH (05:57)
[2019-06-20 08:13] VITALS: BP 156/80
[2019-06-20] MEDS: VITS A AND D/WHITE PET/LANOLIN 5 GM PACKET TP SCH ×2 (09:00→21:47)
[2019-06-20] MEDS: CLOTRIMAZOLE 1% 15 GM TUBE TP SCH ×2 (09:00→21:46)
[2019-06-20] MEDS: Z GUARD REMEDY 4 OZ OINT TP SCH ×4 (09:00→21:46)
[2019-06-20] MEDS: HYDROGEN PEROXIDE 480 ML BOTTLE TP SCH ×2 (09:00→21:19)
[2019-06-20] MEDS: DOCUSATE SODIUM LIQ 100 MG/10 ML UDC GT SCH (09:43)
[2019-06-20] MEDS: BENZTROPINE MESYLATE (1 MG) 1 MG TABLET GT SCH (09:43)
[2019-06-20] MEDS: LACTULOSE 10 G/15 ML UDC (PYXIS) GT SCH (09:43)
[2019-06-20] MEDS: SENNOSIDES 8.6 MG TABLET GT SCH ×2 (09:44→16:41)
[2019-06-20] MEDS: CLOPIDOGREL BISULFATE 75 MG TABLET GT SCH (09:44)
[2019-06-20] MEDS: ATORVASTATIN 40 MG TABLET GT SCH (09:44)
[2019-06-20] MEDS: AMIODARONE HCL 200 MG TABLET GT SCH (09:44)
[2019-06-20] MEDS: MULTIVITAMINS,THERAGRAN 1 UDTAB TABLET GT SCH (09:44)
[2019-06-20] MEDS: PRAMIPEXOLE DI-HCL 0.25 MG TABLET GT SCH ×2 (09:44→16:32)
[2019-06-20] MEDS: ACIDOPHILUS/BULGARICUS 1 EACH TAB.CHEW GT SCH ×2 (09:44→16:32)
[2019-06-20] MEDS: CHLORHEXIDINE GLUCONATE 15 ML UDC MM SCH ×2 (09:44→16:41)
[2019-06-20] MEDS: FUROSEMIDE 20 MG TABLET GT SCH (09:44)
[2019-06-20] MEDS: AMANTADINE SUSP 50 MG/5 ML UDC GT SCH (09:44)
[2019-06-20 20:05] VITALS: BP 128/59
[2019-06-20] MEDS: VITAL AF 1.2 1,000 ML BOTTLE GT PRN (21:50)
[2019-06-21] MEDS: CARBIDOPA/LEVODOPA 25/100 MG 1 UDTAB GT SCH ×8 (02:48→21:43)
[2019-06-21] MEDS: ENTACAPONE 200 MG TABLET GT SCH ×8 (02:48→21:43)
[2019-06-21] MEDS: PANTOPRAZOLE 40 MG/PACK PACK GT SCH (06:25)
[2019-06-21] MEDS: LEVOTHYROXINE SODIUM 75 MCG TABLET GT SCH (06:25)
[2019-06-21 07:41] VITALS: BP 170/77
[2019-06-21] MEDS: VITS A AND D/WHITE PET/LANOLIN 5 GM PACKET TP SCH ×2 (09:00→21:43)
[2019-06-21] MEDS: HYDROGEN PEROXIDE 480 ML BOTTLE TP SCH ×2 (09:00→20:27)
[2019-06-21] MEDS: CLOTRIMAZOLE 1% 15 GM TUBE TP SCH ×2 (09:00→21:43)
[2019-06-21] MEDS: Z GUARD REMEDY 4 OZ OINT TP SCH ×4 (09:00→21:43)
[2019-06-21] MEDS: DOCUSATE SODIUM LIQ 100 MG/10 ML UDC GT SCH (09:19)
[2019-06-21] MEDS: BENZTROPINE MESYLATE (1 MG) 1 MG TABLET GT SCH (09:19)
[2019-06-21] MEDS: LACTULOSE 10 G/15 ML UDC (PYXIS) GT SCH (09:19)
[2019-06-21] MEDS: AMIODARONE HCL 200 MG TABLET GT SCH (09:21)
[2019-06-21] MEDS: FUROSEMIDE 20 MG TABLET GT SCH (09:21)
[2019-06-21] MEDS: ACIDOPHILUS/BULGARICUS 1 EACH TAB.CHEW GT SCH ×2 (09:21→16:44)
[2019-06-21] MEDS: ATORVASTATIN 40 MG TABLET GT SCH (09:22)
[2019-06-21] MEDS: PRAMIPEXOLE DI-HCL 0.25 MG TABLET GT SCH ×2 (09:22→16:44)
[2019-06-21] MEDS: AMANTADINE SUSP 50 MG/5 ML UDC GT SCH (09:23)
[2019-06-21] MEDS: SENNOSIDES 8.6 MG TABLET GT SCH ×2 (09:23→16:44)
[2019-06-21] MEDS: CLOPIDOGREL BISULFATE 75 MG TABLET GT SCH (09:23)
[2019-06-21] MEDS: CHLORHEXIDINE GLUCONATE 15 ML UDC MM SCH ×2 (09:24→16:44)
[2019-06-21] MEDS: MULTIVITAMINS,THERAGRAN 1 UDTAB TABLET GT SCH (09:24)
[2019-06-21] MEDS: VITAL AF 1.2 1,000 ML BOTTLE GT PRN (18:45)
[2019-06-21 19:50] VITALS: BP 106/72
[2019-06-22] MEDS: ENTACAPONE 200 MG TABLET GT SCH ×8 (02:28→21:38)
[2019-06-22] MEDS: CARBIDOPA/LEVODOPA 25/100 MG 1 UDTAB GT SCH ×8 (02:28→21:38)
[2019-06-22] MEDS: LEVOTHYROXINE SODIUM 75 MCG TABLET GT SCH (06:22)
[2019-06-22] MEDS: PANTOPRAZOLE 40 MG/PACK PACK GT SCH (06:22)
[2019-06-22 07:30] VITALS: BP 120/59
[2019-06-22] MEDS: HYDROGEN PEROXIDE 480 ML BOTTLE TP SCH (08:51)
[2019-06-22] MEDS: BENZTROPINE MESYLATE (1 MG) 1 MG TABLET GT SCH (09:47)
[2019-06-22] MEDS: DOCUSATE SODIUM LIQ 100 MG/10 ML UDC GT SCH (09:47)
[2019-06-22] MEDS: LACTULOSE 10 G/15 ML UDC (PYXIS) GT SCH (09:47)
[2019-06-22] MEDS: PRAMIPEXOLE DI-HCL 0.25 MG TABLET GT SCH ×2 (09:48→17:32)
[2019-06-22] MEDS: CHLORHEXIDINE GLUCONATE 15 ML UDC MM SCH ×2 (09:48→17:32)
[2019-06-22] MEDS: Z GUARD REMEDY 4 OZ OINT TP SCH ×3 (09:48→21:38)
[2019-06-22] MEDS: AMANTADINE SUSP 50 MG/5 ML UDC GT SCH (09:48)
[2019-06-22] MEDS: FUROSEMIDE 20 MG TABLET GT SCH (09:48)
[2019-06-22] MEDS: CLOTRIMAZOLE 1% 15 GM TUBE TP SCH ×2 (09:48→21:38)
[2019-06-22] MEDS: AMIODARONE HCL 200 MG TABLET GT SCH (09:48)
[2019-06-22] MEDS: ATORVASTATIN 40 MG TABLET GT SCH (09:48)
[2019-06-22] MEDS: SENNOSIDES 8.6 MG TABLET GT SCH ×2 (09:48→17:32)
[2019-06-22] MEDS: VITS A AND D/WHITE PET/LANOLIN 5 GM PACKET TP SCH ×2 (09:48→21:38)
[2019-06-22] MEDS: MULTIVITAMINS,THERAGRAN 1 UDTAB TABLET GT SCH (09:48)
[2019-06-22] MEDS: CLOPIDOGREL BISULFATE 75 MG TABLET GT SCH (09:48)
[2019-06-22] MEDS: ACIDOPHILUS/BULGARICUS 1 EACH TAB.CHEW GT SCH ×2 (09:48→17:32)
[2019-06-22] MEDS: VITAL AF 1.2 1,000 ML BOTTLE GT PRN (15:11)
[2019-06-22 20:12] VITALS: BP 103/63
[2019-06-23] MEDS: CARBIDOPA/LEVODOPA 25/100 MG 1 UDTAB GT SCH ×8 (02:46→21:56)
[2019-06-23] MEDS: ENTACAPONE 200 MG TABLET GT SCH ×8 (02:46→21:56)
[2019-06-23] MEDS: LEVOTHYROXINE SODIUM 75 MCG TABLET GT SCH (06:12)
[2019-06-23] MEDS: PANTOPRAZOLE 40 MG/PACK PACK GT SCH (06:12)
[2019-06-23 07:47] VITALS: BP 101/63
[2019-06-23] MEDS: HYDROGEN PEROXIDE 480 ML BOTTLE TP SCH ×2 (08:44→20:21)
[2019-06-23] MEDS: DOCUSATE SODIUM LIQ 100 MG/10 ML UDC GT SCH (09:37)
[2019-06-23] MEDS: LACTULOSE 10 G/15 ML UDC (PYXIS) GT SCH (09:37)
[2019-06-23] MEDS: BENZTROPINE MESYLATE (1 MG) 1 MG TABLET GT SCH (09:37)
[2019-06-23] MEDS: AMIODARONE HCL 200 MG TABLET GT SCH (09:40)
[2019-06-23] MEDS: MULTIVITAMINS,THERAGRAN 1 UDTAB TABLET GT SCH (09:40)
[2019-06-23] MEDS: ATORVASTATIN 40 MG TABLET GT SCH (09:40)
[2019-06-23] MEDS: CLOTRIMAZOLE 1% 15 GM TUBE TP SCH ×2 (09:40→21:56)
[2019-06-23] MEDS: FUROSEMIDE 20 MG TABLET GT SCH (09:40)
[2019-06-23] MEDS: CLOPIDOGREL BISULFATE 75 MG TABLET GT SCH (09:40)
[2019-06-23] MEDS: SENNOSIDES 8.6 MG TABLET GT SCH ×2 (09:40→16:53)
[2019-06-23] MEDS: Z GUARD REMEDY 4 OZ OINT TP SCH ×2 (09:40→21:56)
[2019-06-23] MEDS: ACIDOPHILUS/BULGARICUS 1 EACH TAB.CHEW GT SCH ×2 (09:40→16:51)
[2019-06-23] MEDS: PRAMIPEXOLE DI-HCL 0.25 MG TABLET GT SCH ×2 (09:40→16:53)
[2019-06-23] MEDS: AMANTADINE SUSP 50 MG/5 ML UDC GT SCH (09:40)
[2019-06-23] MEDS: CHLORHEXIDINE GLUCONATE 15 ML UDC MM SCH ×2 (09:40→16:53)
[2019-06-23] MEDS: VITS A AND D/WHITE PET/LANOLIN 5 GM PACKET TP SCH ×2 (09:41→21:56)
[2019-06-23] MEDS: VITAL AF 1.2 1,000 ML BOTTLE GT PRN (12:11)
[2019-06-23 20:20] VITALS: BP 128/59
[2019-06-24] MEDS: ENTACAPONE 200 MG TABLET GT SCH ×8 (02:30→21:41)
[2019-06-24] MEDS: CARBIDOPA/LEVODOPA 25/100 MG 1 UDTAB GT SCH ×8 (02:30→21:41)
[2019-06-24] MEDS: VITAL AF 1.2 1,000 ML BOTTLE GT PRN (05:28)
[2019-06-24] MEDS: PANTOPRAZOLE 40 MG/PACK PACK GT SCH (05:29)
[2019-06-24] MEDS: LEVOTHYROXINE SODIUM 75 MCG TABLET GT SCH (05:29)
[2019-06-24 07:50] VITALS: BP 115/70
[2019-06-24] MEDS: PRAMIPEXOLE DI-HCL 0.25 MG TABLET GT SCH ×2 (08:04→17:16)
[2019-06-24] MEDS: BENZTROPINE MESYLATE (1 MG) 1 MG TABLET GT SCH (08:04)
[2019-06-24] MEDS: LACTULOSE 10 G/15 ML UDC (PYXIS) GT SCH (08:04)
[2019-06-24] MEDS: FUROSEMIDE 20 MG TABLET GT SCH (08:04)
[2019-06-24] MEDS: DOCUSATE SODIUM LIQ 100 MG/10 ML UDC GT SCH (08:04)
[2019-06-24] MEDS: ACIDOPHILUS/BULGARICUS 1 EACH TAB.CHEW GT SCH ×2 (08:04→17:16)
[2019-06-24] MEDS: AMIODARONE HCL 200 MG TABLET GT SCH (08:04)
[2019-06-24] MEDS: ATORVASTATIN 40 MG TABLET GT SCH (08:04)
[2019-06-24] MEDS: CHLORHEXIDINE GLUCONATE 15 ML UDC MM SCH ×2 (08:05→17:16)
[2019-06-24] MEDS: VITS A AND D/WHITE PET/LANOLIN 5 GM PACKET TP SCH ×2 (08:05→21:40)
[2019-06-24] MEDS: CLOTRIMAZOLE 1% 15 GM TUBE TP SCH ×2 (08:05→21:40)
[2019-06-24] MEDS: Z GUARD REMEDY 4 OZ OINT TP SCH ×2 (08:05→21:40)
[2019-06-24] MEDS: CLOPIDOGREL BISULFATE 75 MG TABLET GT SCH (08:05)
[2019-06-24] MEDS: SENNOSIDES 8.6 MG TABLET GT SCH ×2 (08:05→17:16)
[2019-06-24] MEDS: AMANTADINE SUSP 50 MG/5 ML UDC GT SCH (08:05)
[2019-06-24] MEDS: MULTIVITAMINS,THERAGRAN 1 UDTAB TABLET GT SCH (08:05)
[2019-06-24] MEDS: HYDROGEN PEROXIDE 480 ML BOTTLE TP SCH ×2 (08:33→21:17)
[2019-06-24 20:47] VITALS: BP 108/54
[2019-06-25] MEDS: ENTACAPONE 200 MG TABLET GT SCH ×8 (02:46→21:12)
[2019-06-25] MEDS: CARBIDOPA/LEVODOPA 25/100 MG 1 UDTAB GT SCH ×8 (02:46→21:12)
[2019-06-25] MEDS: LEVOTHYROXINE SODIUM 75 MCG TABLET GT SCH (06:05)
[2019-06-25] MEDS: PANTOPRAZOLE 40 MG/PACK PACK GT SCH (06:05)
[2019-06-25 07:52] VITALS: BP 159/59
[2019-06-25] MEDS: HYDROGEN PEROXIDE 480 ML BOTTLE TP SCH ×2 (09:00→19:30)
[2019-06-25] MEDS: DOCUSATE SODIUM LIQ 100 MG/10 ML UDC GT SCH (09:55)
[2019-06-25] MEDS: PRAMIPEXOLE DI-HCL 0.25 MG TABLET GT SCH ×2 (09:55→17:14)
[2019-06-25] MEDS: SENNOSIDES 8.6 MG TABLET GT SCH ×2 (09:55→17:14)
[2019-06-25] MEDS: AMIODARONE HCL 200 MG TABLET GT SCH (09:55)
[2019-06-25] MEDS: LACTULOSE 10 G/15 ML UDC (PYXIS) GT SCH (09:55)
[2019-06-25] MEDS: FUROSEMIDE 20 MG TABLET GT SCH (09:55)
[2019-06-25] MEDS: ATORVASTATIN 40 MG TABLET GT SCH (09:55)
[2019-06-25] MEDS: MULTIVITAMINS,THERAGRAN 1 UDTAB TABLET GT SCH (09:55)
[2019-06-25] MEDS: BENZTROPINE MESYLATE (1 MG) 1 MG TABLET GT SCH (09:55)
[2019-06-25] MEDS: AMANTADINE SUSP 50 MG/5 ML UDC GT SCH (09:55)
[2019-06-25] MEDS: ACIDOPHILUS/BULGARICUS 1 EACH TAB.CHEW GT SCH ×2 (09:55→17:14)
[2019-06-25] MEDS: CLOPIDOGREL BISULFATE 75 MG TABLET GT SCH (09:55)
[2019-06-25] MEDS: CHLORHEXIDINE GLUCONATE 15 ML UDC MM SCH ×2 (09:55→17:14)
[2019-06-25] MEDS: Z GUARD REMEDY 4 OZ OINT TP SCH ×2 (09:56→21:09)
[2019-06-25] MEDS: CLOTRIMAZOLE 1% 15 GM TUBE TP SCH ×2 (09:56→21:08)
[2019-06-25] MEDS: VITS A AND D/WHITE PET/LANOLIN 5 GM PACKET TP SCH ×2 (09:56→21:09)
[2019-06-25 20:25] VITALS: BP 130/60
[2019-06-26] MEDS: VITAL AF 1.2 1,000 ML BOTTLE GT PRN ×2 (00:31→18:10)
[2019-06-26] MEDS: CARBIDOPA/LEVODOPA 25/100 MG 1 UDTAB GT SCH ×8 (02:50→21:30)
[2019-06-26] MEDS: ENTACAPONE 200 MG TABLET GT SCH ×8 (02:50→21:30)
[2019-06-26] MEDS: PANTOPRAZOLE 40 MG/PACK PACK GT SCH (05:48)
[2019-06-26] MEDS: LEVOTHYROXINE SODIUM 75 MCG TABLET GT SCH (05:48)
[2019-06-26 07:54] VITALS: BP 107/41
[2019-06-26] MEDS: DOCUSATE SODIUM LIQ 100 MG/10 ML UDC GT SCH (08:15)
[2019-06-26] MEDS: LACTULOSE 10 G/15 ML UDC (PYXIS) GT SCH (08:15)
[2019-06-26] MEDS: BENZTROPINE MESYLATE (1 MG) 1 MG TABLET GT SCH (08:15)
[2019-06-26] MEDS: AMIODARONE HCL 200 MG TABLET GT SCH (08:17)
[2019-06-26] MEDS: ACIDOPHILUS/BULGARICUS 1 EACH TAB.CHEW GT SCH ×2 (08:18→16:37)
[2019-06-26] MEDS: FUROSEMIDE 20 MG TABLET GT SCH (08:18)
[2019-06-26] MEDS: ATORVASTATIN 40 MG TABLET GT SCH (08:19)
[2019-06-26] MEDS: PRAMIPEXOLE DI-HCL 0.25 MG TABLET GT SCH ×2 (08:20→16:37)
[2019-06-26] MEDS: CHLORHEXIDINE GLUCONATE 15 ML UDC MM SCH ×2 (08:21→16:37)
[2019-06-26] MEDS: SENNOSIDES 8.6 MG TABLET GT SCH ×2 (08:21→16:37)
[2019-06-26] MEDS: AMANTADINE SUSP 50 MG/5 ML UDC GT SCH (08:21)
[2019-06-26] MEDS: MULTIVITAMINS,THERAGRAN 1 UDTAB TABLET GT SCH (08:21)
[2019-06-26] MEDS: CLOPIDOGREL BISULFATE 75 MG TABLET GT SCH (08:23)
[2019-06-26] MEDS: CLOTRIMAZOLE 1% 15 GM TUBE TP SCH ×2 (09:00→21:29)
[2019-06-26] MEDS: VITS A AND D/WHITE PET/LANOLIN 5 GM PACKET TP SCH ×2 (09:00→21:30)
[2019-06-26] MEDS: HYDROGEN PEROXIDE 480 ML BOTTLE TP SCH ×2 (09:00→21:40)
[2019-06-26] MEDS: Z GUARD REMEDY 4 OZ OINT TP SCH ×2 (09:00→21:30)
[2019-06-26 20:32] VITALS: BP 107/58
[2019-06-27] MEDS: ENTACAPONE 200 MG TABLET GT SCH ×8 (02:30→21:30)
[2019-06-27] MEDS: CARBIDOPA/LEVODOPA 25/100 MG 1 UDTAB GT SCH ×8 (02:30→21:30)
[2019-06-27] MEDS: LEVOTHYROXINE SODIUM 75 MCG TABLET GT SCH (06:04)
[2019-06-27] MEDS: PANTOPRAZOLE 40 MG/PACK PACK GT SCH (06:04)
[2019-06-27 08:01] VITALS: BP 97/67
[2019-06-27] MEDS: HYDROGEN PEROXIDE 480 ML BOTTLE TP SCH ×2 (08:24→20:12)
[2019-06-27] MEDS: ACIDOPHILUS/BULGARICUS 1 EACH TAB.CHEW GT SCH ×2 (09:00→17:53)
[2019-06-27] MEDS: AMANTADINE SUSP 50 MG/5 ML UDC GT SCH (09:00)
[2019-06-27] MEDS: DOCUSATE SODIUM LIQ 100 MG/10 ML UDC GT SCH (09:00)
[2019-06-27] MEDS: AMIODARONE HCL 200 MG TABLET GT SCH (09:00)
[2019-06-27] MEDS: LACTULOSE 10 G/15 ML UDC (PYXIS) GT SCH (09:00)
[2019-06-27] MEDS: CHLORHEXIDINE GLUCONATE 15 ML UDC MM SCH ×2 (09:00→17:54)
[2019-06-27] MEDS: BENZTROPINE MESYLATE (1 MG) 1 MG TABLET GT SCH (09:00)
[2019-06-27] MEDS: SENNOSIDES 8.6 MG TABLET GT SCH ×2 (09:00→17:54)
[2019-06-27] MEDS: CLOTRIMAZOLE 1% 15 GM TUBE TP SCH (09:00)
[2019-06-27] MEDS: CLOPIDOGREL BISULFATE 75 MG TABLET GT SCH (09:00)
[2019-06-27] MEDS: FUROSEMIDE 20 MG TABLET GT SCH (09:00)
[2019-06-27] MEDS: Z GUARD REMEDY 4 OZ OINT TP SCH ×2 (09:00→21:00)
[2019-06-27] MEDS: ATORVASTATIN 40 MG TABLET GT SCH (09:00)
[2019-06-27] MEDS: PRAMIPEXOLE DI-HCL 0.25 MG TABLET GT SCH ×2 (09:00→17:54)
[2019-06-27] MEDS: MULTIVITAMINS,THERAGRAN 1 UDTAB TABLET GT SCH (09:00)
[2019-06-27] MEDS: VITS A AND D/WHITE PET/LANOLIN 5 GM PACKET TP SCH ×2 (09:00→21:00)
[2019-06-27 20:41] VITALS: BP 104/67
[2019-06-28] MEDS: ENTACAPONE 200 MG TABLET GT SCH ×7 (02:57→20:59)
[2019-06-28] MEDS: CARBIDOPA/LEVODOPA 25/100 MG 1 UDTAB GT SCH ×7 (02:57→20:59)
[2019-06-28] MEDS: LEVOTHYROXINE SODIUM 75 MCG TABLET GT SCH (06:20)
[2019-06-28] MEDS: PANTOPRAZOLE 40 MG/PACK PACK GT SCH (06:20)
[2019-06-28 07:03] LABS: BASOPHILS % (AUTO) 0.5 % (0.0-2.0); EOSINOPHILS % (AUTO) 0.6 % (0.0-6.0); HEMATOCRIT 35 % (33-45); HEMOGLOBIN 11.8 g/dL (11.5-14.8); LYMPHOCYTES % (AUTO) 15.8 % (20.0-44.0); MEAN CORPUSCULAR HGB CONC 34 g/dl (31.0-36.0); MEAN CORPUSCULAR VOLUME 98 fL (82-100); MONOCYTES # (AUTO) 0.3 /CMM (0.1-1.30); MONOCYTES % (AUTO) 5.1 % (2.0-12.0); NEUTROPHILS # (AUTO) 5.1 /CMM (1.8-8.9); PLATELET COUNT (AUTO) 310 /CMM (150-450); RED BLOOD CELL COUNT(AUTO) 3.51 MIL/uL (4.0-5.2); WHITE BLOOD COUNT (AUTO) 6.5 K/uL (4.3-11.0)
[2019-06-28 07:32] VITALS: BP 110/52
[2019-06-28 07:44] LABS: CALCIUM, SERUM 8.8 mg/dL (8.5-10.1); CARBON DIOXIDE 28 mmol/L (21-32); CHLORIDE 104 mmol/L (98-107); CREATININE 0.5 mg/dL (0.6-1.3); GLUCOSE 126 mg/dL (74-106); PHOSPHORUS 3.5 mg/dL (2.5-4.9); POTASSIUM 4.2 mmol/L (3.5-5.1); SODIUM SERUM 139 mmol/L (136-145); UREA NITROGEN, BLOOD 29 mg/dL (7-18)
[2019-06-28] MEDS: HYDROGEN PEROXIDE 480 ML BOTTLE TP SCH ×2 (08:32→20:57)
[2019-06-28] MEDS: AMIODARONE HCL 200 MG TABLET GT SCH (09:00)
[2019-06-28] MEDS: CHLORHEXIDINE GLUCONATE 15 ML UDC MM SCH ×2 (09:45→17:46)
[2019-06-28] MEDS: AMANTADINE SUSP 50 MG/5 ML UDC GT SCH (09:45)
[2019-06-28] MEDS: Z GUARD REMEDY 4 OZ OINT TP SCH ×2 (09:45→20:57)
[2019-06-28] MEDS: BENZTROPINE MESYLATE (1 MG) 1 MG TABLET GT SCH (09:45)
[2019-06-28] MEDS: ACIDOPHILUS/BULGARICUS 1 EACH TAB.CHEW GT SCH ×2 (09:45→17:46)
[2019-06-28] MEDS: PRAMIPEXOLE DI-HCL 0.25 MG TABLET GT SCH ×2 (09:45→17:46)
[2019-06-28] MEDS: CLOPIDOGREL BISULFATE 75 MG TABLET GT SCH (09:45)
[2019-06-28] MEDS: VITS A AND D/WHITE PET/LANOLIN 5 GM PACKET TP SCH ×2 (09:45→20:57)
[2019-06-28] MEDS: ATORVASTATIN 40 MG TABLET GT SCH (09:45)
[2019-06-28] MEDS: DOCUSATE SODIUM LIQ 100 MG/10 ML UDC GT SCH (09:45)
[2019-06-28] MEDS: FUROSEMIDE 20 MG TABLET GT SCH (09:45)
[2019-06-28] MEDS: MULTIVITAMINS,THERAGRAN 1 UDTAB TABLET GT SCH (09:45)
[2019-06-28] MEDS: SENNOSIDES 8.6 MG TABLET GT SCH ×2 (09:45→17:46)
[2019-06-28] MEDS: LACTULOSE 10 G/15 ML UDC (PYXIS) GT SCH (09:45)
[2019-06-28] MEDS: VITAL AF 1.2 1,000 ML BOTTLE GT PRN (09:46)
[2019-06-28 20:45] VITALS: BP 107/62
[2019-06-29] MEDS: ENTACAPONE 200 MG TABLET GT SCH ×8 (02:35→21:24)
[2019-06-29] MEDS: CARBIDOPA/LEVODOPA 25/100 MG 1 UDTAB GT SCH ×8 (02:35→21:24)
[2019-06-29] MEDS: PANTOPRAZOLE 40 MG/PACK PACK GT SCH (05:17)
[2019-06-29] MEDS: LEVOTHYROXINE SODIUM 75 MCG TABLET GT SCH (05:18)
[2019-06-29] MEDS: MAGNESIUM HYDROXIDE 30 ML UDC GT PRN (06:02)
[2019-06-29 07:44] VITALS: BP 107/53
[2019-06-29] MEDS: HYDROGEN PEROXIDE 480 ML BOTTLE TP SCH ×2 (08:12→20:55)
[2019-06-29] MEDS: AMIODARONE HCL 200 MG TABLET GT SCH (09:00)
[2019-06-29] MEDS: BENZTROPINE MESYLATE (1 MG) 1 MG TABLET GT SCH (09:02)
[2019-06-29] MEDS: DOCUSATE SODIUM LIQ 100 MG/10 ML UDC GT SCH (09:02)
[2019-06-29] MEDS: LACTULOSE 10 G/15 ML UDC (PYXIS) GT SCH (09:02)
[2019-06-29] MEDS: PRAMIPEXOLE DI-HCL 0.25 MG TABLET GT SCH ×2 (09:03→16:20)
[2019-06-29] MEDS: ACIDOPHILUS/BULGARICUS 1 EACH TAB.CHEW GT SCH ×2 (09:03→16:20)
[2019-06-29] MEDS: SENNOSIDES 8.6 MG TABLET GT SCH ×2 (09:03→16:20)
[2019-06-29] MEDS: ATORVASTATIN 40 MG TABLET GT SCH (09:03)
[2019-06-29] MEDS: CHLORHEXIDINE GLUCONATE 15 ML UDC MM SCH ×2 (09:03→16:20)
[2019-06-29] MEDS: FUROSEMIDE 20 MG TABLET GT SCH (09:03)
[2019-06-29] MEDS: MULTIVITAMINS,THERAGRAN 1 UDTAB TABLET GT SCH (09:03)
[2019-06-29] MEDS: Z GUARD REMEDY 4 OZ OINT TP SCH ×2 (09:03→21:21)
[2019-06-29] MEDS: AMANTADINE SUSP 50 MG/5 ML UDC GT SCH (09:03)
[2019-06-29] MEDS: CLOPIDOGREL BISULFATE 75 MG TABLET GT SCH (09:03)
[2019-06-29] MEDS: VITS A AND D/WHITE PET/LANOLIN 5 GM PACKET TP SCH ×2 (09:04→21:21)
[2019-06-29 20:15] VITALS: BP 103/59
[2019-06-30] MEDS: CARBIDOPA/LEVODOPA 25/100 MG 1 UDTAB GT SCH ×8 (01:39→21:43)
[2019-06-30] MEDS: ENTACAPONE 200 MG TABLET GT SCH ×8 (01:39→21:43)
[2019-06-30] MEDS: VITAL AF 1.2 1,000 ML BOTTLE GT PRN (03:46)
[2019-06-30] MEDS: LEVOTHYROXINE SODIUM 75 MCG TABLET GT SCH (06:16)
[2019-06-30] MEDS: PANTOPRAZOLE 40 MG/PACK PACK GT SCH (06:16)
[2019-06-30 07:48] VITALS: BP 144/53
[2019-06-30] MEDS: HYDROGEN PEROXIDE 480 ML BOTTLE TP SCH ×2 (09:11→20:54)
[2019-06-30] MEDS: BENZTROPINE MESYLATE (1 MG) 1 MG TABLET GT SCH (09:54)
[2019-06-30] MEDS: DOCUSATE SODIUM LIQ 100 MG/10 ML UDC GT SCH (09:54)
[2019-06-30] MEDS: LACTULOSE 10 G/15 ML UDC (PYXIS) GT SCH (09:54)
[2019-06-30] MEDS: AMIODARONE HCL 200 MG TABLET GT SCH (09:55)
[2019-06-30] MEDS: Z GUARD REMEDY 4 OZ OINT TP SCH ×2 (09:55→21:39)
[2019-06-30] MEDS: PRAMIPEXOLE DI-HCL 0.25 MG TABLET GT SCH ×2 (09:55→16:13)
[2019-06-30] MEDS: ACIDOPHILUS/BULGARICUS 1 EACH TAB.CHEW GT SCH ×2 (09:55→16:13)
[2019-06-30] MEDS: MULTIVITAMINS,THERAGRAN 1 UDTAB TABLET GT SCH (09:55)
[2019-06-30] MEDS: VITS A AND D/WHITE PET/LANOLIN 5 GM PACKET TP SCH ×2 (09:55→21:39)
[2019-06-30] MEDS: CHLORHEXIDINE GLUCONATE 15 ML UDC MM SCH ×2 (09:55→16:13)
[2019-06-30] MEDS: ATORVASTATIN 40 MG TABLET GT SCH (09:55)
[2019-06-30] MEDS: FUROSEMIDE 20 MG TABLET GT SCH (09:55)
[2019-06-30] MEDS: CLOPIDOGREL BISULFATE 75 MG TABLET GT SCH (09:55)
[2019-06-30] MEDS: AMANTADINE SUSP 50 MG/5 ML UDC GT SCH (09:55)
[2019-06-30] MEDS: SENNOSIDES 8.6 MG TABLET GT SCH ×2 (09:55→16:13)
[2019-06-30 20:42] VITALS: BP 110/78
[2019-07-01] MEDS: CARBIDOPA/LEVODOPA 25/100 MG 1 UDTAB GT SCH ×8 (02:29→21:30)
[2019-07-01] MEDS: ENTACAPONE 200 MG TABLET GT SCH ×8 (02:29→21:30)
[2019-07-01] MEDS: VITAL AF 1.2 1,000 ML BOTTLE GT PRN ×2 (02:43→23:24)
[2019-07-01] MEDS: PANTOPRAZOLE 40 MG/PACK PACK GT SCH (06:04)
[2019-07-01] MEDS: LEVOTHYROXINE SODIUM 75 MCG TABLET GT SCH (06:04)
[2019-07-01 08:00] VITALS: BP 112/70
[2019-07-01] MEDS: HYDROGEN PEROXIDE 480 ML BOTTLE TP SCH ×2 (09:00→21:10)
[2019-07-01] MEDS: CLOPIDOGREL BISULFATE 75 MG TABLET GT SCH (09:09)
[2019-07-01] MEDS: MULTIVITAMINS,THERAGRAN 1 UDTAB TABLET GT SCH (09:09)
[2019-07-01] MEDS: PRAMIPEXOLE DI-HCL 0.25 MG TABLET GT SCH ×2 (09:09→16:56)
[2019-07-01] MEDS: ACIDOPHILUS/BULGARICUS 1 EACH TAB.CHEW GT SCH ×2 (09:09→16:56)
[2019-07-01] MEDS: AMIODARONE HCL 200 MG TABLET GT SCH (09:09)
[2019-07-01] MEDS: SENNOSIDES 8.6 MG TABLET GT SCH ×2 (09:09→16:56)
[2019-07-01] MEDS: FUROSEMIDE 20 MG TABLET GT SCH (09:09)
[2019-07-01] MEDS: CHLORHEXIDINE GLUCONATE 15 ML UDC MM SCH ×2 (09:09→16:56)
[2019-07-01] MEDS: ATORVASTATIN 40 MG TABLET GT SCH (09:09)
[2019-07-01] MEDS: BENZTROPINE MESYLATE (1 MG) 1 MG TABLET GT SCH (09:09)
[2019-07-01] MEDS: DOCUSATE SODIUM LIQ 100 MG/10 ML UDC GT SCH (09:09)
[2019-07-01] MEDS: LACTULOSE 10 G/15 ML UDC (PYXIS) GT SCH (09:09)
[2019-07-01] MEDS: AMANTADINE SUSP 50 MG/5 ML UDC GT SCH (09:09)
[2019-07-01] MEDS: Z GUARD REMEDY 4 OZ OINT TP SCH ×2 (09:11→20:24)
[2019-07-01] MEDS: VITS A AND D/WHITE PET/LANOLIN 5 GM PACKET TP SCH ×2 (09:11→20:24)
[2019-07-01 19:47] VITALS: BP 101/53
[2019-07-02] MEDS: ENTACAPONE 200 MG TABLET GT SCH ×8 (02:30→21:36)
[2019-07-02] MEDS: CARBIDOPA/LEVODOPA 25/100 MG 1 UDTAB GT SCH ×8 (02:30→21:36)
[2019-07-02] MEDS: LEVOTHYROXINE SODIUM 75 MCG TABLET GT SCH (06:01)
[2019-07-02] MEDS: PANTOPRAZOLE 40 MG/PACK PACK GT SCH (06:01)
[2019-07-02 07:38] VITALS: BP 118/59
[2019-07-02] MEDS: SENNOSIDES 8.6 MG TABLET GT SCH ×2 (08:56→17:04)
[2019-07-02] MEDS: DOCUSATE SODIUM LIQ 100 MG/10 ML UDC GT SCH (08:56)
[2019-07-02] MEDS: PRAMIPEXOLE DI-HCL 0.25 MG TABLET GT SCH ×2 (08:56→17:04)
[2019-07-02] MEDS: ATORVASTATIN 40 MG TABLET GT SCH (08:56)
[2019-07-02] MEDS: ACIDOPHILUS/BULGARICUS 1 EACH TAB.CHEW GT SCH ×2 (08:56→17:04)
[2019-07-02] MEDS: LACTULOSE 10 G/15 ML UDC (PYXIS) GT SCH (08:56)
[2019-07-02] MEDS: FUROSEMIDE 20 MG TABLET GT SCH (08:56)
[2019-07-02] MEDS: AMIODARONE HCL 200 MG TABLET GT SCH (08:56)
[2019-07-02] MEDS: BENZTROPINE MESYLATE (1 MG) 1 MG TABLET GT SCH (08:56)
[2019-07-02] MEDS: CLOPIDOGREL BISULFATE 75 MG TABLET GT SCH (08:56)
[2019-07-02] MEDS: CHLORHEXIDINE GLUCONATE 15 ML UDC MM SCH ×2 (08:57→17:04)
[2019-07-02] MEDS: Z GUARD REMEDY 4 OZ OINT TP SCH ×2 (08:57→21:36)
[2019-07-02] MEDS: MULTIVITAMINS,THERAGRAN 1 UDTAB TABLET GT SCH (08:57)
[2019-07-02] MEDS: VITS A AND D/WHITE PET/LANOLIN 5 GM PACKET TP SCH ×2 (08:57→21:36)
[2019-07-02] MEDS: AMANTADINE SUSP 50 MG/5 ML UDC GT SCH (08:57)
[2019-07-02] MEDS: HYDROGEN PEROXIDE 480 ML BOTTLE TP SCH ×2 (09:00→21:00)
[2019-07-02] MEDS: VITAL AF 1.2 1,000 ML BOTTLE GT PRN (17:05)
[2019-07-02 19:34] VITALS: BP 139/70
[2019-07-03] MEDS: ENTACAPONE 200 MG TABLET GT SCH ×8 (01:44→21:43)
[2019-07-03] MEDS: CARBIDOPA/LEVODOPA 25/100 MG 1 UDTAB GT SCH ×8 (01:44→21:43)
[2019-07-03] MEDS: PANTOPRAZOLE 40 MG/PACK PACK GT SCH (06:07)
[2019-07-03] MEDS: LEVOTHYROXINE SODIUM 75 MCG TABLET GT SCH (06:07)
[2019-07-03 07:38] VITALS: BP 102/53
[2019-07-03] MEDS: BENZTROPINE MESYLATE (1 MG) 1 MG TABLET GT SCH (08:34)
[2019-07-03] MEDS: LACTULOSE 10 G/15 ML UDC (PYXIS) GT SCH (08:34)
[2019-07-03] MEDS: DOCUSATE SODIUM LIQ 100 MG/10 ML UDC GT SCH (08:34)
[2019-07-03] MEDS: FUROSEMIDE 20 MG TABLET GT SCH (08:35)
[2019-07-03] MEDS: ACIDOPHILUS/BULGARICUS 1 EACH TAB.CHEW GT SCH ×2 (08:35→16:19)
[2019-07-03] MEDS: VITS A AND D/WHITE PET/LANOLIN 5 GM PACKET TP SCH ×2 (08:35→21:42)
[2019-07-03] MEDS: CLOPIDOGREL BISULFATE 75 MG TABLET GT SCH (08:35)
[2019-07-03] MEDS: AMIODARONE HCL 200 MG TABLET GT SCH (08:35)
[2019-07-03] MEDS: Z GUARD REMEDY 4 OZ OINT TP SCH ×2 (08:35→21:42)
[2019-07-03] MEDS: PRAMIPEXOLE DI-HCL 0.25 MG TABLET GT SCH ×2 (08:35→16:19)
[2019-07-03] MEDS: AMANTADINE SUSP 50 MG/5 ML UDC GT SCH (08:35)
[2019-07-03] MEDS: CHLORHEXIDINE GLUCONATE 15 ML UDC MM SCH ×2 (08:35→16:19)
[2019-07-03] MEDS: SENNOSIDES 8.6 MG TABLET GT SCH ×2 (08:35→16:19)
[2019-07-03] MEDS: ATORVASTATIN 40 MG TABLET GT SCH (08:35)
[2019-07-03] MEDS: MULTIVITAMINS,THERAGRAN 1 UDTAB TABLET GT SCH (08:35)
[2019-07-03] MEDS: HYDROGEN PEROXIDE 480 ML BOTTLE TP SCH ×2 (09:30→21:00)
[2019-07-03 20:30] VITALS: BP 99/50
[2019-07-04] MEDS: ENTACAPONE 200 MG TABLET GT SCH ×8 (02:30→21:46)
[2019-07-04] MEDS: CARBIDOPA/LEVODOPA 25/100 MG 1 UDTAB GT SCH ×8 (02:30→21:46)
[2019-07-04] MEDS: PANTOPRAZOLE 40 MG/PACK PACK GT SCH (06:13)
[2019-07-04] MEDS: LEVOTHYROXINE SODIUM 75 MCG TABLET GT SCH (06:13)
[2019-07-04 07:46] VITALS: BP 101/52
[2019-07-04] MEDS: HYDROGEN PEROXIDE 480 ML BOTTLE TP SCH ×2 (09:00→19:20)
[2019-07-04] MEDS: BENZTROPINE MESYLATE (1 MG) 1 MG TABLET GT SCH (09:35)
[2019-07-04] MEDS: DOCUSATE SODIUM LIQ 100 MG/10 ML UDC GT SCH (09:35)
[2019-07-04] MEDS: LACTULOSE 10 G/15 ML UDC (PYXIS) GT SCH (09:35)
[2019-07-04] MEDS: AMIODARONE HCL 200 MG TABLET GT SCH (09:36)
[2019-07-04] MEDS: ATORVASTATIN 40 MG TABLET GT SCH (09:37)
[2019-07-04] MEDS: PRAMIPEXOLE DI-HCL 0.25 MG TABLET GT SCH ×2 (09:37→17:31)
[2019-07-04] MEDS: FUROSEMIDE 20 MG TABLET GT SCH (09:37)
[2019-07-04] MEDS: ACIDOPHILUS/BULGARICUS 1 EACH TAB.CHEW GT SCH ×2 (09:37→17:31)
[2019-07-04] MEDS: SENNOSIDES 8.6 MG TABLET GT SCH ×2 (09:38→17:31)
[2019-07-04] MEDS: CLOPIDOGREL BISULFATE 75 MG TABLET GT SCH (09:38)
[2019-07-04] MEDS: CHLORHEXIDINE GLUCONATE 15 ML UDC MM SCH ×2 (09:39→17:31)
[2019-07-04] MEDS: MULTIVITAMINS,THERAGRAN 1 UDTAB TABLET GT SCH (09:39)
[2019-07-04] MEDS: AMANTADINE SUSP 50 MG/5 ML UDC GT SCH (09:39)
[2019-07-04] MEDS: Z GUARD REMEDY 4 OZ OINT TP SCH ×2 (09:43→21:46)
[2019-07-04] MEDS: VITS A AND D/WHITE PET/LANOLIN 5 GM PACKET TP SCH ×2 (09:43→21:46)
[2019-07-04] MEDS: VITAL AF 1.2 1,000 ML BOTTLE GT PRN (17:42)
[2019-07-04] MEDS: MAGNESIUM HYDROXIDE 30 ML UDC GT PRN (18:44)
[2019-07-04 20:09] VITALS: BP 114/62
[2019-07-05] MEDS: CARBIDOPA/LEVODOPA 25/100 MG 1 UDTAB GT SCH ×8 (01:48→20:58)
[2019-07-05] MEDS: ENTACAPONE 200 MG TABLET GT SCH ×8 (01:48→20:59)
[2019-07-05] MEDS: LEVOTHYROXINE SODIUM 75 MCG TABLET GT SCH (06:11)
[2019-07-05] MEDS: PANTOPRAZOLE 40 MG/PACK PACK GT SCH (06:11)
[2019-07-05 07:39] VITALS: BP 122/55
[2019-07-05] MEDS: LACTULOSE 10 G/15 ML UDC (PYXIS) GT SCH (08:43)
[2019-07-05] MEDS: BENZTROPINE MESYLATE (1 MG) 1 MG TABLET GT SCH (08:43)
[2019-07-05] MEDS: DOCUSATE SODIUM LIQ 100 MG/10 ML UDC GT SCH (08:43)
[2019-07-05] MEDS: CHLORHEXIDINE GLUCONATE 15 ML UDC MM SCH ×2 (08:48→16:40)
[2019-07-05] MEDS: ACIDOPHILUS/BULGARICUS 1 EACH TAB.CHEW GT SCH ×2 (08:48→16:40)
[2019-07-05] MEDS: ATORVASTATIN 40 MG TABLET GT SCH (08:48)
[2019-07-05] MEDS: SENNOSIDES 8.6 MG TABLET GT SCH ×2 (08:48→16:40)
[2019-07-05] MEDS: AMANTADINE SUSP 50 MG/5 ML UDC GT SCH (08:48)
[2019-07-05] MEDS: MULTIVITAMINS,THERAGRAN 1 UDTAB TABLET GT SCH (08:48)
[2019-07-05] MEDS: AMIODARONE HCL 200 MG TABLET GT SCH (08:48)
[2019-07-05] MEDS: FUROSEMIDE 20 MG TABLET GT SCH (08:48)
[2019-07-05] MEDS: PRAMIPEXOLE DI-HCL 0.25 MG TABLET GT SCH ×2 (08:48→16:40)
[2019-07-05] MEDS: CLOPIDOGREL BISULFATE 75 MG TABLET GT SCH (08:48)
[2019-07-05] MEDS: VITS A AND D/WHITE PET/LANOLIN 5 GM PACKET TP SCH ×2 (09:00→20:55)
[2019-07-05] MEDS: Z GUARD REMEDY 4 OZ OINT TP SCH ×2 (09:00→20:55)
[2019-07-05] MEDS: HYDROGEN PEROXIDE 480 ML BOTTLE TP SCH ×2 (09:33→21:00)
[2019-07-05] MEDS ORDERED: JEVITY 1.2 CAL 1,000 ML BOTTLE GT PRN (14:00)
[2019-07-05 20:20] VITALS: BP 100/60
[2019-07-06] MEDS: CARBIDOPA/LEVODOPA 25/100 MG 1 UDTAB GT SCH ×4 (02:30→11:22)
[2019-07-06] MEDS: ENTACAPONE 200 MG TABLET GT SCH ×4 (02:30→11:21)
[2019-07-06] MEDS: LEVOTHYROXINE SODIUM 75 MCG TABLET GT SCH (05:33)
[2019-07-06] MEDS: PANTOPRAZOLE 40 MG/PACK PACK GT SCH (05:33)
[2019-07-06 07:25] VITALS: BP 105/58
[2019-07-06] MEDS: HYDROGEN PEROXIDE 480 ML BOTTLE TP SCH (08:41)
[2019-07-06] MEDS: LACTULOSE 10 G/15 ML UDC (PYXIS) GT SCH (09:01)
[2019-07-06] MEDS: BENZTROPINE MESYLATE (1 MG) 1 MG TABLET GT SCH (09:01)
[2019-07-06] MEDS: DOCUSATE SODIUM LIQ 100 MG/10 ML UDC GT SCH (09:01)
[2019-07-06 09:02] VITALS: BP 105/58
[2019-07-06] MEDS: AMIODARONE HCL 200 MG TABLET GT SCH (09:02)
[2019-07-06] MEDS: ACIDOPHILUS/BULGARICUS 1 EACH TAB.CHEW GT SCH (09:02)
[2019-07-06] MEDS: CLOPIDOGREL BISULFATE 75 MG TABLET GT SCH (09:02)
[2019-07-06] MEDS: Z GUARD REMEDY 4 OZ OINT TP SCH (09:02)
[2019-07-06] MEDS: AMANTADINE SUSP 50 MG/5 ML UDC GT SCH (09:02)
[2019-07-06] MEDS: VITS A AND D/WHITE PET/LANOLIN 5 GM PACKET TP SCH (09:02)
[2019-07-06] MEDS: CHLORHEXIDINE GLUCONATE 15 ML UDC MM SCH (09:02)
[2019-07-06] MEDS: FUROSEMIDE 20 MG TABLET GT SCH (09:02)
[2019-07-06] MEDS: SENNOSIDES 8.6 MG TABLET GT SCH (09:02)
[2019-07-06] MEDS: ATORVASTATIN 40 MG TABLET GT SCH (09:02)
[2019-07-06] MEDS: PRAMIPEXOLE DI-HCL 0.25 MG TABLET GT SCH (09:02)
[2019-07-06] MEDS: MULTIVITAMINS,THERAGRAN 1 UDTAB TABLET GT SCH (09:02)
[2020-04-13] MEDS ORDERED: TUBERCULIN,PURIF.PROT.DERIV. 5 TU/0.1 ML VIAL ID SCH (09:00)
== END 2019-07-06 12:40 | disposition home health service (06) | DRG 189 ==
LOC: SA
PROVIDERS: ADMIT Internal Medicine; ATTEND Internal Medicine
DX: J96.21 Acute and chronic respiratory failure with hypoxia (principal); I63.511 Cerebral infarction due to unspecified occlusion or stenosis of right middle cerebral artery; Z99.11 Dependence on respirator [ventilator] status; E78.5 Hyperlipidemia, unspecified; I25.10 Atherosclerotic heart disease of native coronary artery without angina pectoris; I27.20 Pulmonary hypertension, unspecified; Z86.73 Personal history of transient ischemic attack (TIA), and cerebral infarction without residual deficits; R13.10 Dysphagia, unspecified; Z95.1 Presence of aortocoronary bypass graft; G20 Parkinson's disease; Z93.1 Gastrostomy status; Z93.0 Tracheostomy status; I10 Essential (primary) hypertension; E03.9 Hypothyroidism, unspecified; D64.9 Anemia, unspecified; I48.91 Unspecified atrial fibrillation; Z87.11 Personal history of peptic ulcer disease; Z74.01 Bed confinement status; M20.41 Other hammer toe(s) (acquired), right foot; M20.42 Other hammer toe(s) (acquired), left foot; J84.10 Pulmonary fibrosis, unspecified; I73.9 Peripheral vascular disease, unspecified; B35.1 Tinea unguium; Z79.899 Other long term (current) drug therapy; Z79.82 Long term (current) use of aspirin; D69.2 Other nonthrombocytopenic purpura
CPT/HCPCS: 31720; 36415; 80048-TC; 80053-TC; 82040-TC; 82728-TC; 83540-TC; 83735-TC; 84100-TC; 84439-TC; 84443-TC; 84481; 85025-TC; 87081-TC; 92507-TC; 92521; 92611-TC; 94640-TC; 94760-TC; 94762-TC; 94799-TC; 97110-TC; 97112-TC; 97530-TC; A4217; A4623; A6248; A6253; A7526; L8501